=== PATIENT | male | born 1950 | race Hispanic/Latino ===

== ENCOUNTER 2018-08-31 17:05 | Outpatient (CLI) | payer OTHER ==
[2018-08-31 17:20] LABS: Hemoglobin 14.2 g/dL (14.0-18.0); Mean Corpuscular HGB CONC 34.7 g/dL (32.0-36.0); Mean Corpuscular Hemoglobin 32.5 pg (27.0-31.0); Mean Corpuscular Volume 93.7 fL (78.0-98.0); Mean Platelet Volume 7.9 fL (7.4-10.4); Platelet Count 316 thou/uL (130-400); RBC Distribution Width 11.4 % (11.5-14.5); Red Blood Cell (RBC) Count 4.35 mill/uL (4.70-6.10)
[2018-08-31 17:53] LABS: Anion Gap 16 mmol/L (10-20); BUN (Urea Nitrogen) 27 mg/dL (8.4-25.7); Calc. Creatinine Clearance 0 mL/min (70-130); Calcium 10.6 mg/dL (7.8-10.44); Carbon Dioxide 26 mmol/L (23-31); Chloride 98 mmol/L (98-107); Estimated GFR-MDRD 51; Glucose 157 mg/dL (80-115); Potassium 4.2 mmol/L (3.5-5.1); Sodium 136 mmol/L (136-145)
--- NOTE | 2018-08-31 18:20 | RAD ---
TWO VIEWS CHEST: 08/31/18 PROVIDED CLINICAL HISTORY: Preop. FINDINGS: Comparison 10/10/13. The cardiac and mediastinal silhouette is within normal limits. Lungs appear clear. No pleural fluid or pneumothorax apparent. IMPRESSION: No evidence for an acute cardiopulmonary process. POS: SANCHEZ
== END 2018-08-31 17:06 | disposition home or self-care (01) ==
LOC: LABBT 17:05
PROVIDERS: ATTEND Thoracic Surgery (Cardiothoracic Vascular Surgery)
DX: Z01.818 Encounter for other preprocedural examination (principal); I73.9 Peripheral vascular disease, unspecified
CPT/HCPCS: 71046; 80048; 85027; 93005; 93010

== ENCOUNTER 2018-09-04 05:49 | Day surgery (SDC) | payer OTHER ==
[2018-08-31 17:31] VITALS: BMI 30.5
[2018-09-04 06:50] LABS: ALT (SGPT) 19 U/L (8-55); AST (SGOT) 20 U/L (5-34); Albumin 4.6 g/dL (3.4-4.8); Alkaline Phosphatase 51 U/L (40-150); Anion Gap 15 mmol/L (10-20); BUN (Urea Nitrogen) 26 mg/dL (8.4-25.7); Bilirubin, Total 0.4 mg/dL (0.2-1.2); Calc. Creatinine Clearance 54 mL/min (70-130); Calcium 10.2 mg/dL (7.8-10.44); Carbon Dioxide 25 mmol/L (23-31); Chloride 101 mmol/L (98-107); Estimated GFR-MDRD 45; Globulin 3.5 g/dL (2.4-3.5); Glucose 354 mg/dL (80-115); Protein, Total 8.1 g/dL (5.8-8.1); Sodium 137 mmol/L (136-145)
[2018-09-04] MEDS ORDERED: hydrALAZINE 20 MG/ML VIAL ONE (07:00)
[2018-09-04] MEDS ORDERED: Midazolam HCl 2 mg/2 ml Vial ONE ×2 (07:23→08:11)
[2018-09-04] MEDS ORDERED: Fentanyl 100 MCG/2 ML VIAL ONE (07:24)
[2018-09-04] MEDS ORDERED: Heparin 10,000 UNITS/1 ML VIAL ONE (07:40)
[2018-09-04] MEDS ORDERED: Clopidogrel Bisulfate 300 MG TAB ONE (08:55)
[2018-09-04] MEDS ORDERED: Iopamidol 370 76% 50 ML VIAL FS ONE (09:46)
--- NOTE | 2018-09-04 17:15 | OP ---
DATE OF PROCEDURE: 09/04/2018 PROCEDURES PERFORMED: Right common femoral artery access with ultrasonographic guidance, aortography with left lower extremity runoff, selective left popliteal angiography, left popliteal balloon angioplasty with 4 x 40 Boston balloon followed by 5 x 40 Lutonix drug-coated balloon angioplasty, and 6 x 80 Innova stent placement in the distal superficial femoral artery and proximal popliteal artery, completion angiography, and ProGlide closure. PREOPERATIVE DIAGNOSIS: Peripheral vascular disease with ischemic tissue loss, left lower extremity. POSTOPERATIVE DIAGNOSIS: Peripheral vascular disease with ischemic tissue loss, left lower extremity. ANESTHESIA: 1% lidocaine local anesthesia with intravenous sedation consisting of incrementally administered Versed and fentanyl totalling 3 mg of Versed and 75 mcg of fentanyl. INDICATIONS: The patient is a 67-year-old diabetic man with mild renal insufficiency, who about a year and a half ago, underwent [employer] with drug-coated balloon of his right popliteal artery followed about a week later by simple amputation of a gangrenous right 4th toe. He has done well until recently when he began developing gangrenous changes affecting the left 4th toe and he was found to have lost the previously palpable dorsalis pedis pulse in that foot. He is now taken to the laborer tin can for diagnostic arteriography and possible percutaneous interventions. FINDINGS: Slightly tortuous right iliac system and small aorta, but otherwise normal aortoiliac segments. Extensive calcification in the left lower extremity [place] vasculature with focal subtotal lesion in the popliteal artery proximally and more modest, but still significant lesion a few centimeters proximal to that in the distal SFA. 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 His anterior tibial and peroneal appeared to reach the foot. He was unclear exactly which one actually crossed into the foot. Postprocedure, he had a good angiographic result locally and a palpable dorsalis pedis pulse in the foot. NARRATIVE REPORT: After informed consent was obtained, the patient was taken to the laborer tin can and positioned supine on the cath table. His groins were prepped and draped in sterile fashion and he was given his initial dose of IV sedation while ultrasonographic examination of the right groin was undertaken via common femoral and its bifurcation were identified and a point on the common femoral where there was minimal calcification on the anterior wall was selected. A micropuncture needle and wire was used to cannulate the femoral artery after infiltrating the area with lidocaine. That microwire was exchanged for a larger caliber wire. The micropuncture sheath was removed and 5-Tunisian sheath exchanged on it. A catheter was placed over that wire and advanced into the aorta and then manipulated to allow for guiding the guidewire into the left iliac system. It was advanced distally to the level of the femoral head and the catheter was then advanced over it. The wire was removed. A small injection demonstrated that the catheter was at the femoral bifurcation. It was withdrawn slightly, and then left lower extremity runoff was performed following the dye column down below the knee. The [place] vasculature had extensive calcifications in it and a high-grade lesion. The transition from superficial femoral to popliteal was readily identified, and then digital subtraction arteriography with selective popliteal angiography more clearly defined that lesion. Further runoff demonstrated trifurcation vessel disease as was anticipated by the calcifications seen in the vessels particularly at the posterior tibial, which was an occluded vessel. The anterior tibial and peroneal were relatively small vessels that appeared to at least reach the foot, one of which in all likelihood, the anterior tibial crossed into the foot. A small flexible wire was advanced through the catheter and used to gently probe the lesion. A more flexible catheter was exchanged over it and advanced to allow for manipulation of the wire to allow passage through the lesion down below the knee and to the distal popliteal artery. Arteriography was performed there to confirm intraluminal positioning as was suggested by the ability to aspirate on the catheter. A 4 x 40 Boston balloon was passed over the wire and positioned across that lesion and was inflated. Arteriography following that showed some modest improvement in that lesion, but more clearly demonstrated a more modest lesion 4 to 5 cm proximal to that in the distal SFA. A 5 x 40 Lutonix drug-coated balloon was inflated across the more high-grade lesion that had been predilated and inflation was held for 3 minutes and then deflated. After determining the distance between the 2 lesions, 6 x 80 Innova stent was selected and advanced with the distal extend a little beyond the high-grade lesion, proximal extend a little bit above the high-grade lesion. The stent was deployed and then was dilated in overlapping fashion first with 4 x 40 balloon and then with a 5 x 40 drug-coated balloon. Completion arteriography showed a good angiographic result with a little bit of luminal irregularity at the knee joint. The balloon and wire were removed and the sheath was withdrawn back to the level of the iliac system and appropriate wire was placed through that and the sheath removed and a ProGlide device was advanced over it. It was advanced through the skin puncture site until blood spontaneously pulsed from the side port of it and the closure suture was deployed. The knot pusher was used to tie and secure the lesion achieving hemostasis. Total contrast used was 36 mL of Isovue. Total fluoro time was 24 minutes. The patient had palpable left dorsalis pedis pulse at the conclusion of the procedure. The puncture site was dressed. The patient was taken to the recovery area in stable condition. Job ID: [id number]
== END 2018-09-04 14:39 | disposition home or self-care (01) ==
LOC: CCL 05:49
PROVIDERS: ATTEND Thoracic Surgery (Cardiothoracic Vascular Surgery)
PROC: 047K341 Dilation of Right Femoral Artery with Drug-eluting Intraluminal Device, using Drug-Coated Balloon, Percutaneous Approach (ICD-10-PCS; principal; 2018-09-04)
DX: E11.51 Type 2 diabetes mellitus with diabetic peripheral angiopathy without gangrene (principal); I70.245 Atherosclerosis of native arteries of left leg with ulceration of other part of foot; E11.621 Type 2 diabetes mellitus with foot ulcer; L97.529 Non-pressure chronic ulcer of other part of left foot with unspecified severity; I10 Essential (primary) hypertension; E78.2 Mixed hyperlipidemia; Z79.02 Long term (current) use of antithrombotics/antiplatelets; Z79.82 Long term (current) use of aspirin; Z79.84 Long term (current) use of oral hypoglycemic drugs; Z79.52 Long term (current) use of systemic steroids; Z79.899 Other long term (current) drug therapy; Z95.820 Peripheral vascular angioplasty status with implants and grafts
CPT/HCPCS: 36415; 37226; 76942; 80053; 85347; 99152; 99153; C1725; C1760; C1769; C1887; J0360; J1644; J2250; J3010

== ENCOUNTER 2018-10-02 14:21 | Inpatient (IN) | payer OTHER ==
--- NOTE | 2018-10-02 14:46 | RAD ---
LEFT FOOT 3 VIEWS: Date: 10/02/18 HISTORY: Gangrene. COMPARISON: None. FINDINGS: There is subcutaneous emphysema throughout the midfoot extending from the first through the fifth toe s. There is arterial medial sclerosis. No large cortical erosions or periostitis is appreciated, aside from the distal phalanx of the great toe tuft. There is some possible cortical irregularity of the medial aspect of the distal phalanx of the small toe. IMPRESSION: 1. Subcutaneous emphysema and gangrenous changes throughout the midfoot from the first-fifth proxima l phalanges. 2. Erosions of the great toe distal phalanx and medial margin of the fourth toe distal phalanx, may be the sequelae of osteomyelitis. MRI recommended if clinically warranted. POS: [facility]
[2018-10-02 15:17] LABS: #Lymphocytes 1.5 thou/uL (1.20-3.40); #Monocytes 0.6 thou/uL (0.11-0.59); #Neutrophils 10.4 thou/uL (1.40-6.50); %Basophils 0.2 % (0.0-1.0); %Eosinophils 0.1 % (0.0-10.0); %Lymphocytes 12.2 % (21.0-51.0); %Monocytes 4.6 % (0.0-10.0); Hemoglobin 11.7 g/dL (14.0-18.0); Mean Corpuscular HGB CONC 34.3 g/dL (32.0-36.0); Mean Corpuscular Hemoglobin 31.1 pg (27.0-31.0); Mean Corpuscular Volume 90.6 fL (78.0-98.0); Mean Platelet Volume 7.7 fL (7.4-10.4); Platelet Count 449 thou/uL (130-400); RBC Distribution Width 11.3 % (11.5-14.5); Red Blood Cell (RBC) Count 3.75 mill/uL (4.70-6.10); White Blood Cell (WBC) Count 12.6 thou/uL (4.8-10.8)
[2018-10-02 15:38] LABS: ALT (SGPT) 18 U/L (8-55); AST (SGOT) 15 U/L (5-34); Albumin 3.8 g/dL (3.4-4.8); Alkaline Phosphatase 66 U/L (40-150); Anion Gap 17 mmol/L (10-20); BUN (Urea Nitrogen) 26 mg/dL (8.4-25.7); Bilirubin, Total 0.4 mg/dL (0.2-1.2); Calc. Creatinine Clearance 0 mL/min (70-130); Calcium 10.3 mg/dL (7.8-10.44); Carbon Dioxide 24 mmol/L (23-31); Chloride 91 mmol/L (98-107); Estimated GFR-MDRD 44; Globulin 4.1 g/dL (2.4-3.5); Potassium 4.1 mmol/L (3.5-5.1); Protein, Total 7.9 g/dL (5.8-8.1); Sodium 128 mmol/L (136-145)
[2018-10-02 15:47] LABS: Glucose 565 mg/dL (80-115)
[2018-10-02] MEDS ORDERED: Piperacillin/Tazobactam 4.5 GM VIAL ONE (16:47)
[2018-10-02] MEDS ORDERED: Sodium Chloride 0.9% 100 ML ONE (16:47)
[2018-10-02] MEDS ORDERED: Dextrose 50% Abboject 50 ML SYRINGE IVP PRN (19:28)
[2018-10-02] MEDS ORDERED: Dextrose 5% in Water 1,000 ML IV PRN (19:28)
[2018-10-02] MEDS ORDERED: Insulin Regular 300 UNITS/3 ML VIAL SC PRN (19:28)
[2018-10-02] MEDS ORDERED: VANCOMYCIN IVPB PRN (19:28)
[2018-10-02] MEDS ORDERED: HOLD METFORMIN FS SCH (19:45)
[2018-10-02] MEDS ORDERED: HYDROcodone/Acetaminophen 5/325 mg Tablet PO PRN (20:16)
[2018-10-02] MEDS ORDERED: HYDROcodone/Acetaminophen 5/325 mg Tablet ONE (20:45)
[2018-10-02] MEDS ORDERED: Insulin Regular 300 UNITS/3 ML VIAL ONE (20:51)
[2018-10-02] MEDS: HYDROcodone/Acetaminophen 5/325 mg Tablet PO PRN (20:56)
[2018-10-02] MEDS: Atorvastatin Calcium 20 MG TAB PO SCH (20:57)
[2018-10-02] MEDS: cloNIDine 0.2 MG TAB PO SCH (20:57)
[2018-10-02] MEDS: Sodium Chloride 0.9% 1,000 ML IV SCH (20:58)
[2018-10-02 21:17] VITALS: BMI 26.7
[2018-10-02] MEDS: Piperacillin/Tazobactam 4.5 GM in Sodium Chloride 0.9% 100 ML IVPB SCH (23:23)
[2018-10-03] MEDS: HYDROcodone/Acetaminophen 5/325 mg Tablet PO PRN ×2 (04:02→08:25)
[2018-10-03] MEDS: Piperacillin/Tazobactam 4.5 GM in Sodium Chloride 0.9% 100 ML IVPB SCH ×4 (06:05→23:59)
[2018-10-03 07:02] LABS: #Lymphocytes 1.4 thou/uL (1.20-3.40); #Monocytes 0.6 thou/uL (0.11-0.59); #Neutrophils 8.1 thou/uL (1.40-6.50); %Basophils 0.2 % (0.0-1.0); %Eosinophils 0.4 % (0.0-10.0); %Lymphocytes 13.6 % (21.0-51.0); %Monocytes 5.9 % (0.0-10.0); Hemoglobin 9.4 g/dL (14.0-18.0); Hemoglobin A1c 10.9 % (4.0-6.0); Mean Corpuscular HGB CONC 34.5 g/dL (32.0-36.0); Mean Corpuscular Hemoglobin 31.6 pg (27.0-31.0); Mean Corpuscular Volume 91.7 fL (78.0-98.0); Mean Platelet Volume 7.2 fL (7.4-10.4); Platelet Count 368 thou/uL (130-400); RBC Distribution Width 11.4 % (11.5-14.5); Red Blood Cell (RBC) Count 2.99 mill/uL (4.70-6.10); White Blood Cell (WBC) Count 10.1 thou/uL (4.8-10.8)
[2018-10-03 07:24] LABS: Anion Gap 12 mmol/L (10-20); BUN (Urea Nitrogen) 24 mg/dL (8.4-25.7); Calc. Creatinine Clearance 71 mL/min (70-130); Calcium 8.7 mg/dL (7.8-10.44); Carbon Dioxide 27 mmol/L (23-31); Chloride 104 mmol/L (98-107); Estimated GFR-MDRD 63; Glucose 76 mg/dL (80-115); Potassium 3.6 mmol/L (3.5-5.1); Sodium 139 mmol/L (136-145)
[2018-10-03] MEDS: Glimepiride 4 MG TAB PO SCH (08:24)
[2018-10-03] MEDS: Sodium Chloride 0.9% 1,000 ML IV SCH ×4 (08:26→16:21)
[2018-10-03] MEDS ORDERED: Vancomycin HCl 1.25 GM in Sodium Chloride 0.9% 250 ML 250 ML IVPB SCH (09:00)
[2018-10-03] MEDS: cloNIDine 0.2 MG TAB PO SCH ×2 (10:09→21:10)
[2018-10-03 11:25] LABS: INR-International Normal Ratio 1.1; PTT 34.6 SEC (22.9-36.1); Prothrombin Time 14.1 SEC (12.0-14.7)
[2018-10-03] MEDS ORDERED: Bupivacaine PF 0.5% 30 ML VIAL ONE (12:28)
[2018-10-03] MEDS ORDERED: Bupivacaine HCl 0.5%/Epinephrine 1:200,000/PF 30 ml Vial ONE (12:28)
[2018-10-03] MEDS ORDERED: Fentanyl 100 MCG/2 ML VIAL ONE ×4 (12:35→17:26)
[2018-10-03] MEDS ORDERED: Ondansetron HCl/PF 4 MG/2 ML Vial IVP PRN (14:41)
[2018-10-03] MEDS ORDERED: Promethazine HCl 25 MG/ML VIAL IM/IV PRN (14:41)
--- NOTE | 2018-10-03 14:45 | HP ---
REASON FOR ADMISSION: Gangrene of the toe. HISTORY OF PRESENT ILLNESS: Mr. Milton is a 67-year-old male with past medical history of severe PVD, uncontrolled diabetes, developed wound on the left 4th toe about two months ago. The patient was seen initially in the office and then he was referred to Cardiovascular Surgery for the peripheral vascular disease for possible developing gangrene. He was seen by Cardiovascular Surgery and had an evaluation, and he was supposed to follow up again. He was diagnosed with severe PVD. The patient states that he has another followup appointment, but meanwhile , his toe is getting worse. It is more gangrenous, became dry, swollen, so he came to the emergency room, where he was evaluated, found to have gangrene of the 4th toe. The x-ray of the foot showed the gangrene is spreading to the mid foot, and the x- ray also showed evidence of osteomyelitis. The patient was given vancomycin and Zosyn in the ER and fluids and admitted for further evaluation and management. PAST MEDICAL HISTORY: 1. Hypertension. 2. Diabetes mellitus. 3. Hyperlipidemia. PAST SURGICAL HISTORY: Status post amputation of right 4th toe due to PVD and gangrene. CURRENT MEDICATIONS: The patient is on, 1. Metformin 1000 mg b.i.d. 2. Clonidine 0.2 b.i.d. 3. Lisinopril with hydrochlorothiazide 20/25 daily. 4. Pravastatin 80 mg daily. 5. Plavix 75 mg daily. 6. Glimepiride 4 mg two tablets daily. ALLERGIES: NKDA. FAMILY HISTORY: Nothing contributory. CARDIOVASCULAR: No chest pain. No shortness of breath. GASTROINTESTINAL: No nausea, vomiting, or abdominal pain. PHYSICAL EXAMINATION: GENERAL: The patient is alert, awake, and oriented x3. VITAL SIGNS: Temperature 98.pulse 80, BP 130/80. EXTREMITIES: Right foot; there is complete amputation of right 4th toe. Left foot; left 4th toe is completely gangrenous. The swelling and erythema extend to the midfoot. X-ray of the left foot showed subcutaneous emphysema and gangrenous changes throughout the midfoot from 1st to 5th rproximal phalanges. There is erosion of great toe distal phalanx and medial margin of 4th toe distal phalanx, possibly due to osteomyelitis. LABORATORY DATA: CBC shows WBC 12.6, hemoglobin 11, hematocrit 34, platelets 440. Metabolic panel; sodium 128, potassium 4, chloride 24 ASSESSMENT: 1. Severe peripheral vascular disease with gangrene of the left 4th toe. 2. Osteomyelitis, left foot. 3. Diabetes mellitus, uncontrolled. 4. Noncompliant. 5. Hypertension. 6. Hyperlipidemia. PLAN: 1. Vital signs q.4 hours. 2. Activity as tolerated. 3. Allergies, NKDA. 4. Diet, ADA 5. Vancomycin 1 g IV piggyback q 12 hrs 6. Cardiovascular Surgery consult. 7. Accu-Chek a.c., and at bedtime. Sliding scale aggresive regular insulin. 8. Continue his home medications. 9. Hold metformin. Job ID: [id number] MTDD
[2018-10-03] MEDS ORDERED: Metoprolol Tartrate 5 MG/5 ML VIAL ONE (15:19)
[2018-10-03] MEDS ORDERED: PROPOFOL 200 MG/20 ML VIAL ONE (15:19)
[2018-10-03] MEDS ORDERED: Lidocaine 1% PF 5 ML VIAL ONE (15:19)
[2018-10-03] MEDS ORDERED: Ondansetron PF 4 MG/2 ML Vial ONE (17:26)
[2018-10-03 20:16] LABS: Vancomycin, Random 16.8 ug/mL (See Comment)
--- NOTE | 2018-10-03 20:24 | OP ---
DATE OF PROCEDURE: 10/03/2018 PROCEDURES PERFORMED: Ray amputation of left toes 2, 3, and 4. PREOPERATIVE DIAGNOSES: Wet gangrene of left toes 3 and 4. POSTOPERATIVE DIAGNOSES: Wet gangrene of left toes 3 and 4 with gangrene of left second toe. INDICATIONS: The patient is a 67-year-old diabetic man with peripheral vascular disease, who fairly recently underwent percutaneous revascularization of his left lower extremity for limb salvage after presenting with development of a gangrenous tip to the fourth toe. He was resistant to the idea of amputation, but gangrenous changes have dramatically progressed and are quite painful and he presented with ischemic changes now involving adjacent toes and he was markedly hyperglycemic. FINDINGS: Necrotic tissue involving the fourth and third toes as well as the lateral aspect of the base of the second toe. The soft tissue at the plantar aspect of the base of the first and fifth toes were marginal. There was gross pus encountered upon entering the forefoot. NARRATIVE REPORT: After informed consent was obtained, the patient was taken to the operating room, placed in supine position on the operating table. After the induction of general LMA anesthesia, the patient's left lower extremity was prepped and draped in sterile fashion. A wedge type incision was made with the proximal apex extending proximal to the metatarsophalangeal joints of the third and fourth toes that was extended at the angle between the fourth and fifth toes and second and third toes and then around to the very distal plantar aspect of the foot. The electrocautery was used to carry those incisions through the soft tissues. The bones of the metatarsals and proximal phalanges of those two toes were exposed and then the metatarsals were transected with bone cutters and the dissection continued. Scissors were used for much of the debridement and dissection. It can be appreciated that the tissue at the base of the second toe was necrotic and ischemic appearing skin on the lateral aspect of the second toe to be appreciated. The wedge was extended to include the second toe in the amputation. The metatarsals were debrided with rongeurs and the wound was irrigated with Pulsavac device and 3 L of sterile irrigation. The wound was packed open and dressed with a bulky gauze dressing followed by loose application of an Seun wrap and he was taken to the recovery area in stable condition. Job ID: [id number]
--- NOTE | 2018-10-03 20:58 | CON ---
DATE OF CONSULTATION: 10/03/2018 REQUESTING PROVIDER: BEULAH Souza CHIEF COMPLAINT: Left foot pain. HISTORY OF PRESENT ILLNESS: The patient is a 67-year-old diabetic man with known peripheral vascular disease about a year and a half ago. He underwent percutaneous angioplasty of his right popliteal artery followed by amputation of a gangrenous fourth toe. He recently underwent a mirror image presentation and procedure with angioplasty and stenting of his distal left superficial femoral artery and popliteal artery when he had developed a gangrenous tip to the fourth toe on the left foot, followup most of the toe appeared reasonably pink. There was a fairly large eschar involving the tip of the toe, but it appeared to be limited to the soft-tissue pad in the patient even though it hurt a little bit, was adamant that he did not want to undergo amputation of the toe. He had requested pain medications while they were provided the message was relayed to them that if his toe was starting to hurt that much, in all likelihood it needed to proceed with amputation, but he did not present until last night when he came to the emergency room with persistent severe pain affecting that toe. By the time, he had some wet gangrenous changes evolving, although not evident on physical exam. There was some x-ray evidence to suggest subcutaneous air in the foot. He was also markedly hyperglycemic. He was admitted to the hospital, started on antibiotics, and when I logged onto the computer this morning, I found his name on my list, at the first available opportunity went to go see him. PAST MEDICAL HISTORY: Significant for diabetes, hypertension, and peripheral vascular disease. MEDICATIONS: His home medications are: 1. Clonidine. 2. Lisinopril/hydrochlorothiazide. 3. Baby aspirin. 4. Plavix. 5. Pravastatin. 6. Metformin. 7. Glimepiride. ALLERGIES: HE REPORTS AN ALLERGY TO [facility]. SOCIAL HISTORY: He does not smoke. FAMILY HISTORY: His father at age 60 of causes, which he is unaware. His mother is still alive at age 85. REVIEW OF SYSTEMS: Positive for some chills, but negative for fever. PHYSICAL EXAMINATION: GENERAL: He is not particularly ill looking at all. VITAL SIGNS: His temperature on presentation in the emergency room was 98.4, which is the maximum temperature in the hospital, heart rate is in the 80s, blood pressure 135/70, and room air O2 saturations are 94% to 100%. NECK: He has no JVD. No carotid bruits. CHEST: Clear to auscultation. HEART: He has regular rate and rhythm. EXTREMITIES: He has an easily palpable left dorsalis pedis pulse. There are some dusky changes to much of the forefoot. The left fourth toe is entirely black with the exception of the very base of it. There is pale erosion on the lateral aspect of the third toe adjacent to it with duskiness of the entire toe. The other toes appear pink and viable. There is some wrinkling of the skin to suggest resolution of some edema. There is no lymphangitic streaking. There are no obvious cellulitic changes. There is no particular tenderness to the foot or calf. There is no palpable crepitus. LABORATORY DATA: His white count was 12.6, hemoglobin 11.7, hematocrit 34.0, and platelets 449,000. PT was 14.1 and INR 1.1. Chemistries initially showed a sodium of 128, glucose of 565 with an anion gap of 17. Followup chemistries this morning showed a sodium of 139, potassium 3.6, chloride 104, CO2 of 27, glucose 76, BUN 24, and creatinine 1.17. DIAGNOSTIC DATA: His foot x-rays were reported as having evidence of osteomyelitis and subcutaneous emphysema, I am not particularly struck by any obvious osteo on the lateral film. There is a lucency that is fairly evenly distributed, mostly along the ankle that I suppose could represent subcutaneous air, I am not impressed with that much of anything that I would call air in the foot per se. There are rather dramatic vascular calcifications in the distal ankle and in the foot. IMPRESSION AND RECOMMENDATIONS: While the patient certainly is not as sick appearing as I would have expected him to be when I did my chart review before going to see him, certainly he has declared himself as needing amputation of that fourth toe and gangrenous changes are now involving the adjacent third toe. I would recommend since he is n.p.o. to proceed with amputation now, and I will plan on leaving the wound open. Job ID: [id number]
[2018-10-03] MEDS: Atorvastatin Calcium 20 MG TAB PO SCH (21:10)
[2018-10-03] MEDS: Insulin Regular 300 UNITS/3 ML VIAL SC PRN (21:13)
[2018-10-04] MEDS: Piperacillin/Tazobactam 4.5 GM in Sodium Chloride 0.9% 100 ML IVPB SCH ×4 (06:00→23:31)
[2018-10-04] MEDS: Insulin Regular 300 UNITS/3 ML VIAL SC PRN ×3 (06:07→16:15)
[2018-10-04] MEDS: Vancomycin HCl 1 GM in Premix Bag 1 BAG IVPB SCH ×2 (06:35→16:28)
[2018-10-04] MEDS: Sodium Chloride 0.9% 1,000 ML IV SCH ×2 (07:59→12:37)
[2018-10-04] MEDS: cloNIDine 0.2 MG TAB PO SCH ×2 (09:02→20:45)
[2018-10-04] MEDS: Glimepiride 4 MG TAB PO SCH (09:02)
[2018-10-04] MEDS ORDERED: Lisinopril/Hydrochlorothiazide 20/25 mg Tablet PO SCH (10:45)
[2018-10-04] MEDS ORDERED: chlorproMAZINE HCl 25 MG TAB PO PRN (18:07)
[2018-10-04] MEDS: Atorvastatin Calcium 20 MG TAB PO SCH (20:22)
[2018-10-04] MEDS: Lisinopril/Hydrochlorothiazide 20 mg/12.5 mg Tablet PO SCH (20:45)
--- NOTE | 2018-10-04 21:29 | CON ---
DATE OF CONSULTATION: HISTORY OF PRESENT ILLNESS: Mr. So is a 67-year-old male admitted with history of peripheral vascular disease and recent angioplasty of lower extremity arteries with stenting, who developed gangrene in the distal right foot second, third, and fourth toes. The patient underwent ray amputation under Dr. Loza's care yesterday. He is currently in bed. He denies any headaches, visual symptoms, sore throat, odynophagia, or dysphagia. No back pain. No dyspnea or chest pain. No abdominal pain or diarrhea. No genitourinary symptoms. Moderate pain at the site of the amputation. PAST MEDICAL HISTORY: Hypertension, type 2 diabetes, hyperlipidemia, and peripheral vascular disease. PAST SURGICAL HISTORY: Amputation of fourth toe, right side; and recent revascularization, angioplasty and stenting of the left side. ALLERGIES: NONE. MEDICATIONS: 1. Metformin. 2. Clonidine. 3. Lisinopril. 4. Pravastatin. 5. Plavix. 6. Glimepiride. Other medications currently include Zosyn and vancomycin. SOCIAL HISTORY: He is originally from [place]. No smoking history. FAMILY HISTORY: Noncontributory. PHYSICAL EXAMINATION: VITAL SIGNS: Temperature maximum 99.8, blood pressure 160/72, pulse 79, and respirations 16. HEENT: Ocular movements conjugate. Oral cavity normal. NECK: Supple. LUNGS: Symmetric clear breath sounds. HEART: S1, S2. Regular rate. ABDOMEN: Soft, not distended or tender. EXTREMITIES: Right foot with dressing in place. Microbiology with no growth thus far. LABORATORY DATA: White cell count is down from 12.6 to 10, hemoglobin 9.4, and platelets 368. The operative note was reviewed. ASSESSMENT AND ASSESSMENT: Peripheral vascular disease with recent revascularization and then developed gangrene on second, third, and fourth toes, right side, which required amputation. At this point, we will continue antimicrobial therapy and monitor blood cultures. If the result negative, then we will see what the margin of amputation is to see if we can switch him to oral antimicrobial therapy for discharge planning for few weeks. He has a resistant pathogen retrieved and we may need to switch him to continue IV therapy and PICC line placement depending on the margin of clearance following amputation. Job ID: [id number]
[2018-10-05] MEDS: Sodium Chloride 0.9% 1,000 ML IV SCH (03:45)
[2018-10-05] MEDS: Piperacillin/Tazobactam 4.5 GM in Sodium Chloride 0.9% 100 ML IVPB SCH ×4 (05:05→23:20)
[2018-10-05] MEDS: Vancomycin HCl 1 GM in Premix Bag 1 BAG IVPB SCH ×2 (06:15→17:07)
[2018-10-05] MEDS ORDERED: Fentanyl 100 MCG/2 ML VIAL ONE ×3 (06:39→09:16)
[2018-10-05 06:40] LABS: #Basophils 0.1 thou/uL (0.0-0.2); #Eosinphils 0.2 thou/uL (0.0-0.7); #Lymphocytes 2.8 thou/uL (1.20-3.40); #Monocytes 0.5 thou/uL (0.11-0.59); #Neutrophils 8.1 thou/uL (1.40-6.50); %Basophils 0.6 % (0.0-1.0); %Eosinophils 1.6 % (0.0-10.0); %Lymphocytes 24.2 % (21.0-51.0); %Monocytes 4.7 % (0.0-10.0); Hemoglobin 10.5 g/dL (14.0-18.0); Mean Corpuscular HGB CONC 33.9 g/dL (32.0-36.0); Mean Corpuscular Hemoglobin 31.2 pg (27.0-31.0); Mean Corpuscular Volume 92.2 fL (78.0-98.0); Mean Platelet Volume 7.3 fL (7.4-10.4); Platelet Count 436 thou/uL (130-400); RBC Distribution Width 11.5 % (11.5-14.5); Red Blood Cell (RBC) Count 3.38 mill/uL (4.70-6.10); White Blood Cell (WBC) Count 11.7 thou/uL (4.8-10.8)
[2018-10-05 07:02] LABS: Anion Gap 20 mmol/L (10-20); BUN (Urea Nitrogen) 15 mg/dL (8.4-25.7); Calc. Creatinine Clearance 65 mL/min (70-130); Calcium 9.2 mg/dL (7.8-10.44); Carbon Dioxide 20 mmol/L (23-31); Chloride 102 mmol/L (98-107); Estimated GFR-MDRD 57; Glucose 259 mg/dL (80-115); Iron 31 ug/dL (65-175); Iron Binding Capacity, Total 179 mcg/dL (261-462); Potassium 3.2 mmol/L (3.5-5.1); Sodium 139 mmol/L (136-145)
[2018-10-05 07:36] LABS: Folate (Folic Acid) 13.1 ng/mL (7.0-31.4)
[2018-10-05] MEDS ORDERED: Promethazine HCl 25 MG/ML VIAL SLOW IVP PRN (08:49)
[2018-10-05] MEDS ORDERED: Ondansetron HCl/PF 4 MG/2 ML Vial IVP PRN (08:49)
[2018-10-05] MEDS ORDERED: Promethazine HCl 25 MG/ML VIAL IM PRN (08:49)
[2018-10-05] MEDS ORDERED: Lisinopril/Hydrochlorothiazide 20/25 mg Tablet PO SCH (09:00)
[2018-10-05] MEDS ORDERED: Docusate 100 MG CAP PO SCH ×2 (10:22→10:45)
[2018-10-05] MEDS: Lisinopril/Hydrochlorothiazide 20 mg/12.5 mg Tablet PO SCH ×2 (10:38→20:36)
[2018-10-05] MEDS: Glimepiride 4 MG TAB PO SCH (10:39)
[2018-10-05] MEDS: cloNIDine 0.2 MG TAB PO SCH ×2 (10:39→20:38)
[2018-10-05] MEDS: Insulin Regular 300 UNITS/3 ML VIAL SC PRN ×3 (10:43→21:37)
[2018-10-05] MEDS ORDERED: Ondansetron PF 4 MG/2 ML Vial ONE (11:05)
[2018-10-05] MEDS ORDERED: PHENYLEPHRINE-NS 100 MCG/ML 10 ML SYRINGE ONE (11:05)
[2018-10-05] MEDS ORDERED: PROPOFOL 200 MG/20 ML VIAL ONE (11:05)
[2018-10-05] MEDS ORDERED: Lidocaine 1% PF 5 ML VIAL ONE (11:05)
[2018-10-05] MEDS: Potassium Chloride 20 MEQ TAB PO SCH ×3 (11:33→20:35)
[2018-10-05] MEDS: HYDROcodone/Acetaminophen 5/325 mg Tablet PO PRN (13:04)
--- NOTE | 2018-10-05 13:19 | OP ---
DATE OF PROCEDURE: 10/05/2018 PROCEDURE PERFORMED: Exam under anesthesia and irrigation and debridement of open left foot wound. PREOPERATIVE DIAGNOSIS: Status post ray amputations of left toes 2, 3, and 4. POSTOPERATIVE DIAGNOSIS: Status post ray amputations of left toes 2, 3, and 4. ANESTHESIA: General LMA. INDICATIONS: The patient is a 67-year-old diabetic man with peripheral vascular disease, who had conversion of dry gangrene of a toe to wet gangrene and underwent urgent amputation of the involved toes. He has now returned to the operating room for examination under anesthesia and any further debridement that is necessary. FINDINGS: Trivial amount of tissue along the medial and lateral distal aspects of the wound that was of questionable viability. NARRATIVE REPORT: After informed consent was obtained, the patient was taken to the operating room and placed in supine position on the operating table. After the induction of general LMA anesthesia, the dressing was removed from the patient's foot and the wound was prepped and draped. Most of the tissue was clearly viable at the base of the remaining two toes at the distal extent of the wound. The tissue was a little bit benavides, very superficial debridement with a scalpel, cut into tissue that bled. Ronguers were used to trim the metatarsals of the 3rd and 4th toes a little bit shorter. The wound was then bluntly debrided by scraping it first with the edge of the knife blade and then with gauze. It was irrigated and a wound VAC was applied. Job ID: [id number]
[2018-10-05 18:07] LABS: Vancomycin, Trough 17.5 ug/mL
[2018-10-05] MEDS: Docusate 100 MG CAP PO SCH (20:35)
[2018-10-05] MEDS: Atorvastatin Calcium 20 MG TAB PO SCH (20:38)
[2018-10-06] MEDS: Piperacillin/Tazobactam 4.5 GM in Sodium Chloride 0.9% 100 ML IVPB SCH ×4 (05:36→23:18)
[2018-10-06 06:35] LABS: Anion Gap 11 mmol/L (10-20); BUN (Urea Nitrogen) 13 mg/dL (8.4-25.7); Calc. Creatinine Clearance 75 mL/min (70-130); Calcium 8.7 mg/dL (7.8-10.44); Carbon Dioxide 27 mmol/L (23-31); Chloride 104 mmol/L (98-107); Estimated GFR-MDRD 66; Glucose 249 mg/dL (80-115); Potassium 4.6 mmol/L (3.5-5.1); Sodium 137 mmol/L (136-145)
[2018-10-06] MEDS: Insulin Regular 300 UNITS/3 ML VIAL SC PRN ×4 (06:42→23:17)
[2018-10-06] MEDS: Vancomycin HCl 1 GM in Premix Bag 1 BAG IVPB SCH ×2 (06:42→18:15)
[2018-10-06] MEDS: Glimepiride 4 MG TAB PO SCH (06:42)
[2018-10-06] MEDS ORDERED: diphenhydrAMINE 25 MG CAP PO PRN (09:04)
[2018-10-06] MEDS: Lisinopril/Hydrochlorothiazide 20 mg/12.5 mg Tablet PO SCH ×2 (09:12→20:06)
[2018-10-06] MEDS: cloNIDine 0.2 MG TAB PO SCH ×2 (09:12→20:09)
[2018-10-06] MEDS: Docusate 100 MG CAP PO SCH ×2 (09:13→20:10)
[2018-10-06] MEDS: metFORMIN 500 MG TAB PO SCH (18:15)
[2018-10-06] MEDS: Atorvastatin Calcium 20 MG TAB PO SCH (20:09)
--- NOTE | 2018-10-06 20:41 | PRG ---
DATE OF SERVICE: 10/06/2018 SUBJECTIVE: The patient was seen and examined at bedside. No nausea or vomiting. No chest pain. No acute distress. was also at the bedside. OBJECTIVE: GENERAL: This is a well-built male, in no apparent distress. VITAL SIGNS: Temperature 98.4, pulse 81, respiratory rate 16, blood pressure 134/76. HEENT: Atraumatic and normocephalic. NECK: Supple. CARDIOVASCULAR: S1 and S2 heard. RESPIRATORY: Clear. GASTROINTESTINAL: Abdomen is soft. MUSCULOSKELETAL: No edema. DERMATOLOGIC: No skin rash. NEUROLOGIC: Alert and awake. Moving all the extremities. LABORATORY DATA: Hemoglobin is 10.5. Potassium , BUN is 13. Creatinine is 1.1. ASSESSMENT AND PLAN: 1. Severe peripheral vascular disease with gangrene, status post ray amputation of left toes, 2, 3, and 4. 2. Osteomyelitis, currently on antibiotics. 3. Type 2 diabetes. We will add low dose of metformin. We will continue to monitor. Ensure adequate hydration. 4. Noncompliance. 5. Hypertension, stable. 6. Hyperlipidemia. Continue home medications. We will add low dose of metformin. Continue vancomycin and monitor the level. If level is adequate monitor renal function. We will follow. Job ID: [id number]
[2018-10-07] MEDS: Vancomycin HCl 1 GM in Premix Bag 1 BAG IVPB SCH ×3 (05:53→17:36)
[2018-10-07] MEDS: Piperacillin/Tazobactam 4.5 GM in Sodium Chloride 0.9% 100 ML IVPB SCH ×4 (05:53→23:52)
[2018-10-07 06:52] LABS: Vancomycin, Trough 19.4 ug/mL
[2018-10-07] MEDS: Insulin Regular 300 UNITS/3 ML VIAL SC PRN ×4 (07:10→22:23)
[2018-10-07] MEDS: Glimepiride 4 MG TAB PO SCH (07:13)
[2018-10-07] MEDS: metFORMIN 500 MG TAB PO SCH ×2 (08:48→17:34)
[2018-10-07] MEDS: cloNIDine 0.2 MG TAB PO SCH ×2 (08:48→20:54)
[2018-10-07] MEDS: Lisinopril/Hydrochlorothiazide 20 mg/12.5 mg Tablet PO SCH ×2 (08:49→20:53)
[2018-10-07] MEDS: Docusate 100 MG CAP PO SCH ×2 (08:53→20:53)
--- NOTE | 2018-10-07 15:00 | PRG ---
DATE OF SERVICE: 10/07/2018 SUBJECTIVE: The patient had amputation of the toes by Dr. Loza. This was ray amputations of toes 2, 3, and 4. He denies any headaches. No visual symptoms, sore throat, odynophagia, or dysphagia. No cough, sputum production, or chest pain. OBJECTIVE: VITAL SIGNS: His vital signs have been normal. LUNGS: Clear. HEART: S1 and S2, regular rate. EXTREMITIES: The foot with dressing, which was not removed. LABORATORY DATA: White cell count 11.7, hemoglobin 10.5, and chemistry was not remarkable. Microbiology with gram-positive cocci in pairs, yet to be fully identified, susceptibility tested, currently receiving vancomycin and Zosyn. ASSESSMENT AND DISCUSSION: Peripheral vascular disease, recent revascularization, with gangrene of 2nd, 3rd, and 4th toes, status post amputation at the ray level. Continue broad spectrum coverage, final results, cultures, then transition to definitive therapy, hopefully oral regimen depending on results of the margin of amputation, also depending on the results of the final cultures. Job ID: [id number]
[2018-10-07] MEDS: Atorvastatin Calcium 20 MG TAB PO SCH (20:54)
[2018-10-08] MEDS: Piperacillin/Tazobactam 4.5 GM in Sodium Chloride 0.9% 100 ML IVPB SCH ×4 (05:32→23:32)
[2018-10-08] MEDS: Vancomycin HCl 1 GM in Premix Bag 1 BAG IVPB SCH ×2 (05:32→18:05)
[2018-10-08] MEDS: Insulin Regular 300 UNITS/3 ML VIAL SC PRN ×3 (05:43→18:10)
[2018-10-08] MEDS: Glimepiride 4 MG TAB PO SCH (06:56)
[2018-10-08] MEDS: metFORMIN 500 MG TAB PO SCH ×2 (07:49→17:05)
[2018-10-08] MEDS: cloNIDine 0.2 MG TAB PO SCH ×2 (07:51→19:56)
[2018-10-08] MEDS: Lisinopril/Hydrochlorothiazide 20 mg/12.5 mg Tablet PO SCH ×2 (07:52→20:01)
[2018-10-08] MEDS: Docusate 100 MG CAP PO SCH ×2 (07:54→19:58)
[2018-10-08] MEDS ORDERED: Amlodipine 5 MG TAB PO SCH (18:15)
[2018-10-08] MEDS: HYDROcodone/Acetaminophen 5/325 mg Tablet PO PRN (19:56)
[2018-10-08] MEDS: Atorvastatin Calcium 20 MG TAB PO SCH (19:57)
[2018-10-09] MEDS: Piperacillin/Tazobactam 4.5 GM in Sodium Chloride 0.9% 100 ML IVPB SCH ×2 (05:28→11:58)
[2018-10-09 06:49] LABS: #Eosinphils 0.3 thou/uL (0.0-0.7); #Lymphocytes 1.5 thou/uL (1.20-3.40); #Monocytes 0.5 thou/uL (0.11-0.59); #Neutrophils 5.9 thou/uL (1.40-6.50); %Basophils 0.1 % (0.0-1.0); %Eosinophils 3.8 % (0.0-10.0); %Lymphocytes 18.1 % (21.0-51.0); %Monocytes 5.8 % (0.0-10.0); %Neutrophils 72.2 % (42.0-75.0); Mean Corpuscular HGB CONC 34.1 g/dL (32.0-36.0); Mean Corpuscular Hemoglobin 31.2 pg (27.0-31.0); Mean Corpuscular Volume 91.5 fL (78.0-98.0); Platelet Count 536 thou/uL (130-400); RBC Distribution Width 11.7 % (11.5-14.5); Red Blood Cell (RBC) Count 3.19 mill/uL (4.70-6.10); White Blood Cell (WBC) Count 8.1 thou/uL (4.8-10.8)
[2018-10-09 07:03] LABS: Vancomycin, Trough 21.1 ug/mL
[2018-10-09 07:06] LABS: Anion Gap 14 mmol/L (10-20); BUN (Urea Nitrogen) 15 mg/dL (8.4-25.7); Calc. Creatinine Clearance 80 mL/min (70-130); Calcium 9.1 mg/dL (7.8-10.44); Carbon Dioxide 24 mmol/L (23-31); Chloride 103 mmol/L (98-107); Estimated GFR-MDRD 72; Glucose 173 mg/dL (80-115); Potassium 3.9 mmol/L (3.5-5.1); Sodium 137 mmol/L (136-145)
[2018-10-09] MEDS: Insulin Regular 300 UNITS/3 ML VIAL SC PRN ×3 (07:17→17:54)
[2018-10-09] MEDS: Vancomycin HCl 1 GM in Premix Bag 1 BAG IVPB SCH (07:18)
[2018-10-09] MEDS: Glimepiride 4 MG TAB PO SCH (07:18)
[2018-10-09] MEDS: Lisinopril/Hydrochlorothiazide 20 mg/12.5 mg Tablet PO SCH ×2 (08:47→20:23)
[2018-10-09] MEDS: metFORMIN 500 MG TAB PO SCH ×2 (08:47→16:57)
[2018-10-09] MEDS: Amlodipine 5 MG TAB PO SCH (08:48)
[2018-10-09] MEDS: cloNIDine 0.2 MG TAB PO SCH ×2 (08:48→20:23)
[2018-10-09] MEDS: Docusate 100 MG CAP PO SCH ×2 (08:48→20:22)
[2018-10-09] MEDS ORDERED: Vancomycin HCl 750 MG in Sodium Chloride 0.9% 250 ML 250 ML IVPB SCH (18:00)
--- NOTE | 2018-10-09 18:13 | PRG ---
DATE OF SERVICE: 10/09/2018 SUBJECTIVE: No headaches, visual symptoms, sore throat, odynophagia, and dysphagia. No dyspnea or chest pain. No abdominal pain. Minimal pain in the foot. OBJECTIVE: VITAL SIGNS: Normal. LUNGS: Clear. HEART: S1 and S2. Regular rate. ABDOMEN: Soft. EXTREMITIES: The patient has negative pressure dressing, left foot. LABORATORY DATA: White cell count 8.1, hemoglobin 10, and platelets 536. Creatinine 1.04. Microbiology with Enterococcus species, Peptostreptococcus, and Prevotella. ASSESSMENT AND DISCUSSION: Peripheral vascular disease with recent revascularization, gangrene second, third, and fourth toe status post amputation at the ray level, switch him to oral Augmentin and Flagyl, preparation for discharge planning. Job ID: [id number]
[2018-10-09] MEDS: Atorvastatin Calcium 20 MG TAB PO SCH (20:23)
[2018-10-09] MEDS: Amoxicillin/Potassium Clav 875 MG TAB PO SCH (20:23)
[2018-10-09] MEDS: metroNIDAZOLE 500 MG TAB PO SCH (20:24)
[2018-10-10] MEDS: Glimepiride 4 MG TAB PO SCH (06:49)
[2018-10-10] MEDS: Insulin Regular 300 UNITS/3 ML VIAL SC PRN ×3 (06:53→20:16)
[2018-10-10] MEDS: Docusate 100 MG CAP PO SCH ×2 (08:21→20:13)
[2018-10-10] MEDS: metFORMIN 500 MG TAB PO SCH ×2 (08:21→17:16)
[2018-10-10] MEDS: cloNIDine 0.2 MG TAB PO SCH ×2 (08:21→20:12)
[2018-10-10] MEDS: metroNIDAZOLE 500 MG TAB PO SCH ×3 (08:21→20:12)
[2018-10-10] MEDS: Lisinopril/Hydrochlorothiazide 20 mg/12.5 mg Tablet PO SCH ×2 (08:22→20:13)
[2018-10-10] MEDS: Amoxicillin/Potassium Clav 875 MG TAB PO SCH ×2 (08:22→20:13)
[2018-10-10] MEDS: Amlodipine 5 MG TAB PO SCH (08:22)
[2018-10-10] MEDS: HYDROcodone/Acetaminophen 5/325 mg Tablet PO PRN ×3 (08:47→16:05)
[2018-10-10] MEDS: Atorvastatin Calcium 20 MG TAB PO SCH (20:13)
[2018-10-11] MEDS: Insulin Regular 300 UNITS/3 ML VIAL SC PRN ×3 (06:36→16:42)
[2018-10-11] MEDS: Glimepiride 4 MG TAB PO SCH (06:36)
[2018-10-11] MEDS: Amoxicillin/Potassium Clav 875 MG TAB PO SCH ×2 (08:05→20:36)
[2018-10-11] MEDS: metFORMIN 500 MG TAB PO SCH ×2 (08:05→17:56)
[2018-10-11] MEDS: metroNIDAZOLE 500 MG TAB PO SCH ×3 (08:06→20:37)
[2018-10-11] MEDS: Amlodipine 5 MG TAB PO SCH (08:07)
[2018-10-11] MEDS: Lisinopril/Hydrochlorothiazide 20 mg/12.5 mg Tablet PO SCH ×2 (08:07→20:45)
[2018-10-11] MEDS: Docusate 100 MG CAP PO SCH ×2 (08:07→20:37)
[2018-10-11] MEDS: cloNIDine 0.2 MG TAB PO SCH ×2 (08:07→20:45)
[2018-10-11] MEDS: HYDROcodone/Acetaminophen 5/325 mg Tablet PO PRN ×2 (14:48→20:39)
--- NOTE | 2018-10-11 18:04 | PRG ---
DATE OF SERVICE: 10/11/2018 SUBJECTIVE: A little bit of pain in the foot after ambulation. No respiratory symptoms or abdominal pain. No diarrhea. OBJECTIVE: VITAL SIGNS: Temperature has been normal. Blood pressure 103/64, pulse 74, respirations 16. GENERAL: Awake, alert, and oriented. LUNGS: Clear. HEART: S1 and S2. Regular rate. ABDOMEN: Soft, not distended. EXTREMITIES: Foot with a negative pressure dressing in place. Microbiology with Enterococcus, Peptostreptococcus, and Prevotella. ASSESSMENT AND DISCUSSION: 1. Peripheral vascular disease, recent vascularization. 2. Gangrene, second, third, and fourth toe amputation at the ray level, on Augmentin and Flagyl. Preparation for discharge planning. Treat for 2 to 3 weeks according to progress of wound. Job ID: [id number]
[2018-10-11] MEDS: Atorvastatin Calcium 20 MG TAB PO SCH (20:37)
[2018-10-12] MEDS: HYDROcodone/Acetaminophen 5/325 mg Tablet PO PRN ×3 (04:12→12:10)
[2018-10-12] MEDS: Glimepiride 4 MG TAB PO SCH (06:26)
[2018-10-12] MEDS: metFORMIN 500 MG TAB PO SCH (08:41)
[2018-10-12] MEDS: Lisinopril/Hydrochlorothiazide 20 mg/12.5 mg Tablet PO SCH (08:41)
[2018-10-12] MEDS: cloNIDine 0.2 MG TAB PO SCH (08:42)
[2018-10-12] MEDS: metroNIDAZOLE 500 MG TAB PO SCH (08:42)
[2018-10-12] MEDS: Amoxicillin/Potassium Clav 875 MG TAB PO SCH (08:42)
[2018-10-12] MEDS: Amlodipine 5 MG TAB PO SCH (08:42)
[2018-10-12] MEDS: Docusate 100 MG CAP PO SCH (10:19)
[2018-10-12 11:20] VITALS: BP 144/81; TEMP 98.6
[2018-10-12] MEDS: Insulin Regular 300 UNITS/3 ML VIAL SC PRN (11:31)
--- NOTE | 2018-10-16 09:16 | DIS ---
DATE OF ADMISSION: 10/02/2018 DATE OF DISCHARGE: 10/12/2018 ADMITTING DIAGNOSES: 1. Severe peripheral vascular disease. 2. Gangrene of the left fourth toe. 3. Osteomyelitis, left foot. 4. Diabetes mellitus, uncontrolled. 5. Noncompliant with diet. 6. Hypertension. 7. Hyperlipidemia. FINAL DIAGNOSES: 1. Severe peripheral vascular disease. 2. Gangrene of left third and fourth toes. 3. Status post ray amputation of the left second, third, and fourth toes. 4. Hypertension. 5. Diabetes mellitus, uncontrolled. 6. Hyperlipidemia. BRIEF SUMMARY OF HOSPITAL COURSE: Mr. Milton is a 67-year-old male, admitted because of gangrene in the toes. The patient has a history of severe peripheral vascular disease. Cardiovascular Surgery consulted and the patient was seen by Dr. Loza who suggested amputation of the toes. The patient underwent surgery on the October 05 and re-amputation of second, third, and fourth toes because of gangrene. After surgery, the patient continued on wound care and also had a wound VAC placed. The patient was closely monitored in view of osteomyelitis, the patient was getting IV antibiotics with vancomycin, Zosyn. The patient was seen by Dr. Villalta for Infectious Disease, also says to continue antibiotics and wound care. Wound cultures were negative. Pt was started on PO antibiotics Augmentin 875 b.i.d. as well as Flagyl 500 t.i.d. The patient has been arranged for home wound VAC and is being discharged at this time. Vital signs are stable. Bowel sounds present. DISCHARGE MEDICATIONS: Include, clonidine 0.2 b.i.d., vitamin D 1000 units daily, Plavix 75 mg daily, glimepiride 4 mg daily, aspirin 81 mg daily, metformin 1000 b.i.d., pravastatin 80 mg daily, [place] p.r.n. The patient will be on Augmentin 875 b.i.d. for four weeks, Flagyl 500 mg t.i.d. for four weeks. He will continue with home wound VAC as well as antibiotics, Augmentin and Flagyl. FOLLOWUP: He will come for followup in two weeks. Job ID: [id number] [facility]
== END 2018-10-12 12:34 | disposition home or self-care (01) | DRG 240 ==
LOC: ERS 14:21 → ERHOLD 17:35 → 3SE 10-03 00:46 → SURG B 10-04 15:41
PROVIDERS: ADMIT Internal Medicine; ATTEND Internal Medicine
PROC: 0Y6N0ZB Detachment at Left Foot, Partial 2nd Ray, Open Approach (ICD-10-PCS; principal; 2018-10-03)
PROC: 0Y6N0ZC Detachment at Left Foot, Partial 3rd Ray, Open Approach (ICD-10-PCS; 2018-10-03)
PROC: 0Y6N0ZD Detachment at Left Foot, Partial 4th Ray, Open Approach (ICD-10-PCS; 2018-10-03)
PROC: 0SBN0ZZ Excision of Left Metatarsal-Phalangeal Joint, Open Approach (ICD-10-PCS; 2018-10-05)
PROC: 0SBN0ZZ Excision of Left Metatarsal-Phalangeal Joint, Open Approach (ICD-10-PCS; 2018-10-05)
DX: E11.52 Type 2 diabetes mellitus with diabetic peripheral angiopathy with gangrene (principal); I96 Gangrene, not elsewhere classified; M86.9 Osteomyelitis, unspecified; E11.69 Type 2 diabetes mellitus with other specified complication; E11.65 Type 2 diabetes mellitus with hyperglycemia; I10 Essential (primary) hypertension; E78.5 Hyperlipidemia, unspecified; Z91.11 Patient's noncompliance with dietary regimen; Z79.84 Long term (current) use of oral hypoglycemic drugs; Z79.02 Long term (current) use of antithrombotics/antiplatelets; Z79.899 Other long term (current) drug therapy; Z89.421 Acquired absence of other right toe(s)
CPT/HCPCS: 36415; 36416; 80048; 80053; 80202; 82607; 82728; 82746; 83036; 83540; 83550; 83605; 85025; 85610; 85730; 86850; 86900; 86901; 87040; 87070; 87076; 87205; 96365; 96367; J0131; J0670; J1815; J2001; J2405; J2543; J2704; J3010; J3370; J7050; Q0161; S0020

== ENCOUNTER 2018-10-16 09:45 | Outpatient (CLI) | payer OTHER ==
[2018-10-16] MEDS ORDERED: Sodium Chloride 0.9% 15 ML NEB ONE (11:11)
== END 2018-10-16 09:46 | disposition home or self-care (01) ==
LOC: WCC 09:45
PROVIDERS: ATTEND Family Medicine
DX: T81.89XD Other complications of procedures, not elsewhere classified, subsequent encounter (principal)
CPT/HCPCS: 97605; A4218

== ENCOUNTER 2018-10-19 14:20 | Outpatient (CLI) | payer OTHER ==
[~2018-10-19 14:20] MED LIST: Sodium Chloride 0.9% 15 ML NEB ONE
== END 2018-10-19 14:21 | disposition home or self-care (01) ==
LOC: WCC 14:20
PROVIDERS: ATTEND Family Medicine
DX: T81.89XD Other complications of procedures, not elsewhere classified, subsequent encounter (principal)
CPT/HCPCS: 97605; A4218

== ENCOUNTER 2018-10-22 11:44 | Outpatient (CLI) | payer OTHER ==
[2018-10-22] MEDS ORDERED: Sodium Chloride 0.9% 15 ML NEB ONE (15:00)
== END 2018-10-22 11:45 | disposition home or self-care (01) ==
LOC: WCC 11:44
PROVIDERS: ATTEND Family Medicine
DX: T81.89XD Other complications of procedures, not elsewhere classified, subsequent encounter (principal)
CPT/HCPCS: 36416; 97605; A4218

== ENCOUNTER 2018-10-25 13:03 | Outpatient (CLI) | payer OTHER ==
[2018-10-25] MEDS ORDERED: Sodium Chloride 0.9% 15 ML NEB ONE (15:00)
[2018-10-25] MEDS ORDERED: Lidocaine 2% PF 100 mg/5 ml Syringe ONE (15:00)
--- NOTE | 2018-10-25 15:40 | HP ---
HISTORY OF PRESENT ILLNESS: Mr. Lalo So is a very pleasant 67-year-old gentleman, who presents to the Wound Center for evaluation of a wound of the left foot subsequent to irrigation and debridement of the left 2nd, 3rd, and 4th toes on 10/05/[address] Loza. At the time of surgery, the patient also underwent wound VAC placement. Previously, the patient underwent ray amputation of the left 2nd, 3rd, and 4th toes on 10/03/[address] Loza. The patient underwent percutaneous revascularization of the left lower extremity on 09/04/[address] Loza. Upon discharge from [facility], the patient was referred to the Wound Center for assistance with dressing changes of the wound VAC. PAST MEDICAL HISTORY: 1. Diabetes mellitus. 2. Hypertension. 3. Peripheral vascular disease. PAST SURGICAL HISTORY: 1. Amputation of right 4th toe. 2. Ray amputation of left 2nd, 3rd and 4th toes. 3. Irrigation and debridement of left 2nd, 3rd, and 4th toes/wound VAC application. MEDICATIONS: 1. Flagyl. 2. Augmentin. 3. Amlodipine. 4. Clonidine. 5. Vitamin D3. 6. Plavix. 7. Amaryl. 8. Aspirin 81 mg. 9. Pravastatin. 10. Metformin. ALLERGIES: NO KNOWN DIAGNOSED ALLERGIES. SOCIAL HISTORY: Social history is negative for tobacco use. The patient admits to the moderate consumption of alcohol in the remote past. FAMILY HISTORY: Family history is negative for coronary artery disease. Family history significant for diabetes mellitus. The patient states that he has 3 brothers, who were diagnosed with diabetes mellitus. PHYSICAL EXAMINATION: VITAL SIGNS: Temperature 97.5, pulse 93, blood pressure 137/60. Accu-Chek 406. GENERAL: A 67-year-old gentleman, sitting on chair in examination room, in no acute distress. HEENT: Normocephalic and atraumatic. NECK: No nuchal rigidity. CHEST: Clear to auscultation. CV: Regular rate and rhythm. ABDOMEN: Soft. EXTREMITIES: A wound of the left foot is present, which measures approximately 5.0 x 3.0 cm. Granulation tissue is present within the wound margins. Necrotic and nonviable tissue present within the wound margins were debrided with an excisional full-thickness debridement with the use of scissors. No purulent drainage is associated with the wound. No erythema of the skin surrounding the wound is present. No maceration of the skin of the periwound is noted. A dorsalis pedis pulse is palpable on the left. No significant edema of the left foot is present on exam today. NEUROLOGIC: Grossly nonfocal. ASSESSMENT AND PLAN: 1. Left foot wound subsequent to irrigation and debridement of the left 2nd, 3rd, and 4th toes. Previously, the patient had undergone ray amputation of the left 2nd, 3rd, and 4th toes. At the time of irrigation and debridement, the patient also underwent wound VAC application. Negative pressure therapy will be continued with dressing changes of the wound VAC here in the Wound Center. I will see Mr. Yoan So again in 1 week. The patient will be seen by Dr. Loza in 2 weeks. The patient has been reminded to continue p.o. antibiotics as previously prescribed. The patient understands and is in agreement with the preceding treatment plan. 2. Diabetes mellitus. The patient's Accu-Chek in clinic today is 406. The patient has been told that, for optimal wound healing, his blood glucoses should remain below 150. 3. Hypertension. 4. Peripheral vascular disease. Job ID: [id number]
== END 2018-10-25 13:04 | disposition home or self-care (01) ==
LOC: WCC 13:03
PROVIDERS: ATTEND Family Medicine
DX: T81.89XD Other complications of procedures, not elsewhere classified, subsequent encounter (principal); E11.51 Type 2 diabetes mellitus with diabetic peripheral angiopathy without gangrene; I10 Essential (primary) hypertension; Z89.422 Acquired absence of other left toe(s); Z89.421 Acquired absence of other right toe(s); Z79.82 Long term (current) use of aspirin; Z79.899 Other long term (current) drug therapy; Z79.84 Long term (current) use of oral hypoglycemic drugs; Z83.3 Family history of diabetes mellitus; Z82.49 Family history of ischemic heart disease and other diseases of the circulatory system
CPT/HCPCS: A4218; J2001

== ENCOUNTER 2018-10-29 13:28 | Outpatient (CLI) | payer OTHER ==
[2018-10-29] MEDS ORDERED: Sodium Chloride 0.9% 15 ML NEB ONE (15:00)
== END 2018-10-29 13:29 | disposition home or self-care (01) ==
LOC: WCC 13:28
PROVIDERS: ATTEND Family Medicine
DX: T81.89XD Other complications of procedures, not elsewhere classified, subsequent encounter (principal)
CPT/HCPCS: 97605; A4218

== ENCOUNTER 2018-11-02 09:26 | Outpatient (CLI) | payer OTHER | END 2018-11-02 09:27 | disposition home or self-care (01) | LOC: WCC 09:26 | PROVIDERS: ATTEND Family Medicine | DX: T81.89XD Other complications of procedures, not elsewhere classified, subsequent encounter (principal) | CPT/HCPCS: 36416; 97605; A4218 ==

== ENCOUNTER 2018-11-05 14:55 | Outpatient (CLI) | payer OTHER | END 2018-11-05 14:56 | disposition home or self-care (01) | LOC: WCC 14:55 | PROVIDERS: ATTEND Family Medicine | DX: T81.89XD Other complications of procedures, not elsewhere classified, subsequent encounter (principal) | CPT/HCPCS: 97605; A4218 ==

== ENCOUNTER 2018-11-08 15:51 | Outpatient (CLI) | payer OTHER | END 2018-11-08 15:52 | disposition home or self-care (01) | LOC: WCC 15:51 | PROVIDERS: ATTEND Family Medicine | DX: T81.89XD Other complications of procedures, not elsewhere classified, subsequent encounter (principal) | CPT/HCPCS: 97605; A4218 ==

== ENCOUNTER 2018-11-12 13:41 | Outpatient (CLI) | payer OTHER ==
[2018-11-12] MEDS ORDERED: Sodium Chloride 0.9% 15 ML NEB ONE (18:46)
== END 2018-11-12 13:42 | disposition home or self-care (01) ==
LOC: WCC 13:41
PROVIDERS: ATTEND Family Medicine
DX: T81.89XD Other complications of procedures, not elsewhere classified, subsequent encounter (principal)
CPT/HCPCS: 97605; A4218

== ENCOUNTER 2018-11-15 13:04 | Outpatient (CLI) | payer OTHER ==
[2018-11-15] MEDS ORDERED: Sodium Chloride 0.9% 15 ML NEB ONE (18:00)
== END 2018-11-15 13:05 | disposition home or self-care (01) ==
LOC: WCC 13:04
PROVIDERS: ATTEND Family Medicine
DX: T81.89XD Other complications of procedures, not elsewhere classified, subsequent encounter (principal)
CPT/HCPCS: 97605; A4218

== ENCOUNTER 2018-11-19 15:39 | Outpatient (CLI) | payer OTHER ==
--- NOTE | 2018-11-19 15:53 | PRG ---
DATE OF SERVICE: 11/19/2018 SUBJECTIVE: Mr. Lalo So is a very pleasant 68-year-old gentleman, who presents to the Wound Center for evaluation of a wound of the left foot subsequent to irrigation and debridement of the left 2nd, 3rd, and 4th toes on 10/05/2018, by Dr. Loza. At the time of surgery, the patient also underwent wound VAC placement. Previously, the patient underwent ray amputation of the left 2nd, 3rd, and 4th toes on 10/03/2018, also by Dr. Loza. The patient underwent percutaneous revascularization of the left lower extremity on 09/04/2018, by Dr. Loza. Upon discharge from [facility], the patient was referred to the Wound Center for assistance with dressing changes of the wound VAC. PHYSICAL EXAMINATION: VITAL SIGNS: Temperature 98.0, pulse 119, respirations 19, and blood pressure 173/95. EXTREMITIES: A wound of the left foot is present, which measures approximately 2.7 x 4.5 cm. The dimensions of the wound at the time of the patient's visit on 10/25/2018, were approximately 5.0 x 3.0 cm. Granulation tissue is present within the wound margins. Necrotic and nonviable tissue present within the wound margins was debrided with an excisional full-thickness debridement with the use of scissors. No purulent drainage is associated with the wound. No erythema of the skin surrounding the wound is present. No maceration of the skin of the periwound is noted. A dorsalis pedis pulse is palpable on the left. No significant edema of the left foot is present on exam today. LABORATORY DATA: Accu-Chek 330. ASSESSMENT AND PLAN: 1. Left foot wound subsequent to irrigation and debridement of the left 2nd, 3rd, and 4th toes. Previously, the patient had undergone ray amputation of the left 2nd, 3rd, and 4th toes. At the time of irrigation and debridement, the patient also underwent wound VAC application. Negative pressure therapy will be continued with dressing changes of the wound VAC here in the Wound Center. I will see Mr. Yoan So again in 3 weeks. 2. Diabetes mellitus. The patient's Accu-Chek in clinic today is 330. The patient has been reminded that for optimal wound healing, his blood glucoses should remain below 150. 3. Hypertension. 4. Peripheral vascular disease. Job ID: [id number]
== END 2018-11-19 15:40 | disposition home or self-care (01) ==
LOC: WCC 15:39
PROVIDERS: ATTEND Family Medicine
DX: T81.89XD Other complications of procedures, not elsewhere classified, subsequent encounter (principal); I10 Essential (primary) hypertension; E11.51 Type 2 diabetes mellitus with diabetic peripheral angiopathy without gangrene
CPT/HCPCS: A4218

== ENCOUNTER 2018-11-22 15:51 | Outpatient (CLI) | payer OTHER | END 2018-11-22 15:52 | disposition home or self-care (01) | LOC: WCC 15:51 | PROVIDERS: ATTEND Family Medicine | DX: T81.89XD Other complications of procedures, not elsewhere classified, subsequent encounter (principal) | CPT/HCPCS: 97605 ==

== ENCOUNTER 2018-11-26 14:59 | Outpatient (CLI) | payer OTHER ==
[~2018-11-26 14:59] MED LIST changes: +Lidocaine 2% PF 100 mg/5 ml Syringe ONE
--- NOTE | 2018-11-26 16:33 | PRG ---
DATE OF SERVICE: 11/26/2018 HISTORY: Mr. Lalo So is a very pleasant 68-year-old gentleman, who presents to the Wound Center for evaluation of a wound of the left foot subsequent to irrigation and debridement of the left 2nd, 3rd, and 4th toes on 10/05/[address] Loza. At the time of surgery, the patient also underwent wound VAC placement. Previously, the patient underwent ray amputation of the left 2nd, 3rd, and 4th toes on 10/03/[address] Loza. The patient underwent percutaneous revascularization of the left lower extremity on 09/04/[address] Loza. Upon discharge from [facility], the patient was referred to the Wound Center for assistance with dressing changes of the wound VAC. PHYSICAL EXAMINATION: VITAL SIGNS: Temperature 97.6, pulse 92, respirations 18, blood pressure 171/76. Accu-Chek 300. EXTREMITIES: A wound of the left foot is present which measures approximately 3.5 x 2.5 cm. The dimensions of the wound at the time of the patient's visit on 11/19/2018 were approximately 2.7 x 4.5 cm. Granulation tissue is present within the wound margins. Necrotic and nonviable tissue present within the wound margins was debrided with an excisional full-thickness debridement with the use of scissors and a curette. No purulent drainage is associated with the wound. No erythema of the skin surrounding the wound is present. No maceration of the skin of the periwound is noted. No significant edema of the left foot is present on exam today. ASSESSMENT AND PLAN: 1. Left foot wound subsequent to irrigation and debridement of the left 2nd, 3rd, and 4th toes. Previously, the patient had undergone ray amputation of the left 2nd, 3rd, and 4th toes. At the time of irrigation and debridement, the patient also underwent wound VAC application. Negative pressure therapy will be continued with dressing changes of the wound VAC here in the Wound Center. I will see Mr. Milton again in 2 weeks. 2. Diabetes mellitus. The patient's Accu-Chek in clinic today is 300. The patient has been reminded that for optimal wound healing, his blood glucoses should remain below 150. 3. Hypertension. 4. Peripheral vascular disease. Job ID: [id number]
== END 2018-11-26 15:00 | disposition home or self-care (01) ==
LOC: WCC 14:59
PROVIDERS: ATTEND Family Medicine
DX: E11.621 Type 2 diabetes mellitus with foot ulcer (principal); L97.529 Non-pressure chronic ulcer of other part of left foot with unspecified severity; I10 Essential (primary) hypertension; I73.9 Peripheral vascular disease, unspecified
CPT/HCPCS: 11042; A4218; J2001

== ENCOUNTER 2018-11-29 15:06 | Outpatient (CLI) | payer OTHER ==
[2018-11-29] MEDS ORDERED: Sodium Chloride 0.9% 15 ML NEB ONE (19:45)
== END 2018-11-29 15:07 | disposition home or self-care (01) ==
LOC: WCC 15:06
PROVIDERS: ATTEND Family Medicine
DX: T81.89XD Other complications of procedures, not elsewhere classified, subsequent encounter (principal)
CPT/HCPCS: 97605; A4218

== ENCOUNTER 2018-12-03 15:06 | Outpatient (CLI) | payer OTHER ==
[2018-12-03] MEDS ORDERED: Sodium Chloride 0.9% 15 ML NEB ONE (17:52)
== END 2018-12-03 15:07 | disposition home or self-care (01) ==
LOC: WCC 15:06
PROVIDERS: ATTEND Family Medicine
DX: T81.89XD Other complications of procedures, not elsewhere classified, subsequent encounter (principal)
CPT/HCPCS: 97605; A4218

== ENCOUNTER 2018-12-06 15:16 | Outpatient (CLI) | payer OTHER ==
[~2018-12-06 15:16] MED LIST changes: -Lidocaine 2% PF 100 mg/5 ml Syringe ONE
== END 2018-12-06 15:17 | disposition home or self-care (01) ==
LOC: WCC 15:16
PROVIDERS: ATTEND Family Medicine
DX: T81.89XD Other complications of procedures, not elsewhere classified, subsequent encounter (principal)
CPT/HCPCS: 97605; A4218

== ENCOUNTER 2018-12-10 15:23 | Outpatient (CLI) | payer OTHER ==
--- NOTE | 2018-12-10 16:41 | PRG ---
DATE OF SERVICE: 12/10/2018 HISTORY: Mr. Lalo So is a very pleasant 68-year-old gentleman, who presents to the Wound Center for evaluation of a wound of the left foot subsequent to irrigation and debridement of the left 2nd, 3rd, and 4th toes on 10/05/[address] Loza. At the time of surgery, the patient also underwent wound VAC placement. Previously, the patient underwent ray amputation of the left 2nd, 3rd, and 4th toes on 10/03/[address] Loza. The patient underwent percutaneous revascularization of the left lower extremity on 09/04/[address] Loza. Upon discharge from [facility], the patient was referred to the Wound Center for assistance with dressing changes of the wound VAC. PHYSICAL EXAMINATION: VITAL SIGNS: Temperature 97.6, pulse 87, respirations 18, blood pressure 137/63. Accu-Chek 291. EXTREMITIES: A wound of the left foot is present which measures approximately 1.5 x 4.5 cm. The dimensions of the wound at the time of the patient's visit on 11/26/2018 were approximately 3.5 x 2.5 cm. Granulation tissue is present within the wound margins. Necrotic and nonviable tissue present within the wound margins was debrided with an excisional full-thickness debridement with the use of scissors and curette. No purulent drainage is associated with the wound. No erythema of the skin surrounding the wound is present. Maceration of the skin of the periwound is noted. A dorsalis pedis pulse is easily palpable on the left. No significant edema of the left foot is present on exam today. ASSESSMENT AND PLAN: 1. Left foot wound subsequent to irrigation and debridement of the left 2nd, 3rd, and 4th toes. Previously, the patient had undergone ray amputation of the left 2nd, 3rd, and 4th toes. At the time of irrigation and debridement, the patient also underwent wound VAC application. Negative pressure therapy will be discontinued today. Dressing changes of Medihoney, 4x4s and Kerlix will be initiated. These dressing changes are to be performed every other day or alternatively on a daily basis after cleansing and irrigation. I will see Mr. Milton again in 2 weeks. 2. Diabetes mellitus. The patient's Accu-Chek in clinic today is 291. The patient has been reminded that for optimal wound healing his blood glucoses should remain below 150. 3. Hypertension. 4. Peripheral vascular disease. Job ID: [id number]
[2018-12-10] MEDS ORDERED: Sodium Chloride 0.9% 15 ML NEB ONE (18:00)
== END 2018-12-10 15:24 | disposition home or self-care (01) ==
LOC: WCC 15:23
PROVIDERS: ATTEND Family Medicine
DX: T81.89XD Other complications of procedures, not elsewhere classified, subsequent encounter (principal); E11.9 Type 2 diabetes mellitus without complications; I10 Essential (primary) hypertension; I73.9 Peripheral vascular disease, unspecified
CPT/HCPCS: 11042; 36416; A4218

== ENCOUNTER 2018-12-24 15:12 | Outpatient (CLI) | payer OTHER ==
--- NOTE | 2018-12-24 16:23 | PRG ---
DATE OF SERVICE: 12/24/2018 HISTORY: Mr. Lalo So is a very pleasant 68-year-old gentleman, who presents to the Wound Center for evaluation of a wound of the left foot subsequent to irrigation and debridement of the left 2nd, 3rd, and 4th toes on 10/05/[address] Loza. At the time of surgery, the patient also underwent wound VAC placement. Previously, the patient underwent ray amputation of the left 2nd, 3rd, and 4th toes on 10/03/[address] Loza. The patient underwent percutaneous revascularization of the left lower extremity on 09/04/[address] Loza. Upon discharge from [facility], the patient was referred to the Wound Center for assistance with dressing changes of the wound VAC. PHYSICAL EXAMINATION: VITAL SIGNS: Temperature 97.4, pulse 93, respirations 18, and blood pressure 188/94. EXTREMITIES: A wound of the left foot is present, which measures approximately 1.4 x 1.0 cm. The dimensions of the wound at the time of the patient's visit on 12/10/2018 were approximately 1.5 x 4.5 cm. Granulation tissue is present within the wound margins. Necrotic and nonviable tissue present within the wound margins was debrided with an excisional full-thickness debridement with the use of scissors and a curette. No purulent drainage is associated with the wound. No erythema of the skin surrounding the wound is present. No maceration of the skin of the periwound is noted. A dorsalis pedis pulse is easily palpable on the left. No significant edema of the left foot is present on exam today. LABORATORY DATA: Accu-Chek 300. ASSESSMENT AND PLAN: 1. Left foot wound subsequent to irrigation and debridement of the left 2nd, 3rd, and 4th toes. Previously, the patient had undergone ray amputation of the left 2nd, 3rd, and 4th toes. At the time of irrigation and debridement, the patient also underwent wound VAC application. Negative pressure therapy was discontinued on 12/10/2018. Dressing changes of Medihoney, 4 x 4's, and Kerlix will be continued on a daily basis after cleansing and irrigation. I will see Mr. Yoan So again in 2 weeks. 2. Diabetes mellitus. The patient's Accu-Chek in clinic today is 300. The patient has been reminded that for optimal wound healing his blood glucoses should remain below 150. 3. Hypertension. 4. Peripheral vascular disease. Job ID: [id number]
[2018-12-24] MEDS ORDERED: Sodium Chloride 0.9% 15 ML NEB ONE (18:00)
== END 2018-12-24 15:13 | disposition home or self-care (01) ==
LOC: WCC 15:12
PROVIDERS: ATTEND Family Medicine
DX: T81.89XD Other complications of procedures, not elsewhere classified, subsequent encounter (principal); I10 Essential (primary) hypertension; E11.51 Type 2 diabetes mellitus with diabetic peripheral angiopathy without gangrene; I73.9 Peripheral vascular disease, unspecified
CPT/HCPCS: A4218

== ENCOUNTER 2019-01-07 14:37 | Outpatient (CLI) | payer OTHER ==
[~2019-01-07 14:37] MED LIST changes: +Lidocaine 2% Jelly 5 ML TUBE ONE
--- NOTE | 2019-01-07 17:13 | PRG ---
DATE OF SERVICE: 01/07/2019 HISTORY: Mr. Lalo So is a very pleasant 68-year-old gentleman, who presents to the Wound Center for evaluation of a wound of the left foot subsequent to irrigation and debridement of the left second, third, and fourth toes on 10/05/2018, by Dr. Loza. At the time of surgery, the patient also underwent wound VAC placement. Previously, the patient underwent ray amputation of the left second, third, and fourth toes on 10/03/2018, also by Dr. Loza. The patient underwent percutaneous revascularization of the left lower extremity on 09/04/2018, by Dr. Loza. Upon discharge from [facility], the patient was referred to the Wound Center for assistance with dressing changes of the wound VAC. The patient completed a course of negative pressure therapy and is now receiving dressing changes of Medihoney for his left foot wound. PHYSICAL EXAMINATION: VITAL SIGNS: Temperature 98.0, pulse 77, respirations 17, blood pressure 143/68. Accu-Cheks 300. EXTREMITIES: A wound of the left foot is present, which measures approximately 0.5 x 0.4 cm. The dimensions of the wound at the time of the patient's visit on 12/24/2018, were approximately 1.4 x 1.0 cm. Granulation tissue is present within the wound margins. Necrotic and nonviable tissue present within the wound margins was debrided with an excisional full-thickness debridement with the use of scissors and a curette. No purulent drainage is associated with the wound. No erythema of the skin surrounding the wound is present. No maceration of the skin of the periwound is noted. A dorsalis pedis pulse is easily palpable on the left. No significant edema of the left foot is present on exam today. Purulent drainage from left great ingrown toenail was noted on exam today and sent for aerobic and anaerobic cultures. ASSESSMENT AND PLAN: 1. Left foot wound subsequent to irrigation and debridement of the left second, third, and fourth toes. Previously, the patient had undergone ray amputation of the left second, third, and fourth toes. At the time of irrigation and debridement, the patient also underwent wound VAC application. Negative pressure therapy was discontinued on 12/10/2018. Dressing changes of Medihoney, 4x4's, and Kerlix will be continued on a daily basis after cleansing and irrigation. I will see Mr. Yoan So again in 2 weeks. The patient has been given a prescription for Augmentin 875/125, #20 one p.o. b.i.d. x10 days. Antibiotic therapy will be modified based upon the results of the cultures obtained today. 2. Diabetes mellitus. The patient's Accu-Chek in clinic today is 300. The patient has been reminded that for optimal wound healing, his blood glucoses should remain below 150. 3. Hypertension. 4. Peripheral vascular disease. Job ID: [id number]
[2019-01-07] MEDS ORDERED: Sodium Chloride 0.9% 15 ML NEB ONE (17:34)
== END 2019-01-07 14:38 | disposition home or self-care (01) ==
LOC: WCC 14:37
PROVIDERS: ATTEND Family Medicine
DX: T81.89XD Other complications of procedures, not elsewhere classified, subsequent encounter (principal); E11.51 Type 2 diabetes mellitus with diabetic peripheral angiopathy without gangrene; I10 Essential (primary) hypertension
CPT/HCPCS: 87070; 87077; 87205; A4218

== ENCOUNTER 2019-01-21 14:58 | Outpatient (CLI) | payer OTHER ==
--- NOTE | 2019-01-21 16:05 | PRG ---
DATE OF SERVICE: 01/21/2019 HISTORY: Mr. Lalo So is a very pleasant 68-year-old gentleman, who presents to the Wound Center for evaluation of a wound of the left foot subsequent to irrigation and debridement of the left second, third, and fourth toes on 10/05/[address] Loza. At the time of surgery, the patient also underwent wound VAC placement. Previously, the patient underwent ray amputation of the left second, third, and fourth toes on 10/03/[address] Loza. The patient underwent percutaneous revascularization of the left lower extremity on 09/04/[address] Loza. Upon discharge from [facility], the patient was referred to the Wound Center for assistance with dressing changes of the wound VAC. The patient completed a course of negative pressure therapy and is now receiving dressing changes of Medihoney for his left foot wound. PHYSICAL EXAMINATION: VITAL SIGNS: Temperature 97.8, pulse 99, respirations 21, blood pressure 175/78. Accu-Chek 210. EXTREMITIES: A wound of the left foot is still present. Granulation tissue is present within the wound margins. Necrotic and nonviable tissue present within the wound margins was debrided with an excisional full-thickness debridement with the use of scissors and a curette. No purulent drainage is associated with the wound. No erythema of the skin surrounding the wound is present. No maceration of the skin of the periwound is noted. No significant edema of the left foot is present on exam today. No purulent drainage from the left great ingrown toenail was noted on exam today as was present at the time of the patient's last visit. ASSESSMENT AND PLAN: 1. Left foot wound subsequent to irrigation and debridement of the left second, third, and fourth toes. Previously, the patient had undergone ray amputation of the left second, third, and fourth toes. At the time of irrigation and debridement, the patient also underwent wound VAC application. Negative pressure therapy was discontinued on 12/10/2018. Dressing changes of Medihoney and gauze will be continued on a daily basis after cleansing and irrigation. I will see Mr. Yoan So again on 02/06/2019. At this time, the patient will also be seen by the driver utility worker for fitting with diabetic shoes with inserts. Cultures of the purulent drainage from the left ingrown great toenail revealed the growth of Streptococcus agalactiae group B. At the time of the patient's last visit, Mr. Milton was given a prescription for Augmentin 875/125 #21 p.o. b.i.d. x10 days. 2. Diabetes mellitus. The patient's Accu-Chek in clinic today is 210. The patient has been reminded that for optimal wound healing, his blood glucoses should remain below 150. 3. Hypertension. 4. Peripheral vascular disease. Job ID: [id number]
== END 2019-01-21 14:59 | disposition home or self-care (01) ==
LOC: WCC 14:58
PROVIDERS: ATTEND Family Medicine
DX: T81.89XD Other complications of procedures, not elsewhere classified, subsequent encounter (principal); E11.9 Type 2 diabetes mellitus without complications; I10 Essential (primary) hypertension; I73.9 Peripheral vascular disease, unspecified
CPT/HCPCS: 11042

== ENCOUNTER 2019-02-06 09:15 | Outpatient (CLI) | payer OTHER ==
--- NOTE | 2019-02-06 10:43 | PRG ---
DATE OF SERVICE: 02/06/2019 HISTORY: Mr. Lalo So is a very pleasant 68-year-old gentleman, who presents to the Wound Center for evaluation of a wound of the left foot subsequent to irrigation and debridement of the left second, third, and fourth toes on 10/05/[address] Loza. At the time of surgery, the patient also underwent wound VAC placement. Previously, the patient underwent ray amputation of the left second, third, and fourth toes on 10/03/2018, also by Dr. Loza. The patient underwent percutaneous revascularization of the left lower extremity on 09/04/[address] Loza. Upon discharge from [facility], the patient was referred to the Wound Center for assistance with dressing changes of the wound VAC. The patient completed a course of negative pressure therapy and received dressing changes of Medihoney for his left foot wound. PHYSICAL EXAMINATION: VITAL SIGNS: Temperature 98.1, pulse 77, respirations 16, and blood pressure 98/64. Accu-Chek 250. EXTREMITIES: The wound of the left foot has healed completely. ASSESSMENT AND PLAN: 1. Left foot wound subsequent to irrigation and debridement of the left second, third, and fourth toes. Previously, the patient had undergone ray amputation of the left second, third, and fourth toes. At the time of irrigation and debridement, the patient also underwent wound VAC application. Negative pressure therapy was discontinued on 12/10/2018. The patient then received dressing changes of Medihoney and gauze on a daily basis after cleansing and irrigation. As stated above, the wound has healed completely. The patient has been seen by the agricultural engineer today for fitting with diabetic shoes with inserts. The patient will return to the Wound Center in 3 weeks. At this time, he will be seen again by the agricultural engineer. 2. Diabetes mellitus. The patient's Accu-Chek in clinic today is 250. 3. Hypertension. 4. Peripheral vascular disease. Job ID: [id number]
[2019-02-06] MEDS ORDERED: Sodium Chloride 0.9% 15 ML NEB ONE (18:00)
== END 2019-02-06 09:16 | disposition home or self-care (01) ==
LOC: WCC 09:15
PROVIDERS: ATTEND Family Medicine
DX: T81.89XD Other complications of procedures, not elsewhere classified, subsequent encounter (principal); E11.9 Type 2 diabetes mellitus without complications; I10 Essential (primary) hypertension; I73.9 Peripheral vascular disease, unspecified
CPT/HCPCS: 97602; A4218

== ENCOUNTER 2020-08-26 11:13 | Inpatient (IN) | payer MEDICARE, OTHER ==
[2020-08-26 11:33] LABS: #Lymphocytes 1.6 thou/uL (1.20-3.40); #Monocytes 0.5 thou/uL (0.11-0.59); #Neutrophils 5.3 thou/uL (1.40-6.50); %Basophils 0.4 % (0.0-1.0); %Eosinophils 0.3 % (0.0-10.0); %Lymphocytes 21.3 % (21.0-51.0); %Monocytes 6.5 % (0.0-10.0); %Neutrophils 71.6 % (42.0-75.0); Hemoglobin 11.5 g/dL (14.0-18.0); Mean Corpuscular HGB CONC 34.7 g/dL (32.0-36.0); Mean Corpuscular Hemoglobin 32.9 pg (27.0-31.0); Mean Corpuscular Volume 94.8 fL (78.0-98.0); Mean Platelet Volume 8.8 fL (7.4-10.4); Platelet Count 268 thou/uL (130-400); RBC Distribution Width 11.9 % (11.5-14.5); Red Blood Cell (RBC) Count 3.48 mill/uL (4.70-6.10); White Blood Cell (WBC) Count 7.4 thou/uL (4.8-10.8)
--- NOTE | 2020-08-26 11:42 | RAD ---
XR Chest 1 View Portable HISTORY: Cough, nausea and epigastric pain COMPARISON: 08/31/2018 FINDINGS: The heart size is normal. The lungs are well expanded without focal areas of consolidation, pneumothorax or pleural effusions. IMPRESSION: No radiographic evidence of acute cardiopulmonary process.
[2020-08-26 12:18] LABS: ALT (SGPT) 15 U/L (8-55); AST (SGOT) 17 U/L (5-34); Albumin 3.2 g/dL (3.4-4.8); Alkaline Phosphatase 44 U/L (40-110); Anion Gap 14 mmol/L (10-20); BUN (Urea Nitrogen) 54 mg/dL (8.4-25.7); Bilirubin, Total 0.3 mg/dL (0.2-1.2); Calc. Creatinine Clearance 0 mL/min (70-130); Calcium 8.4 mg/dL (7.8-10.44); Carbon Dioxide 23 mmol/L (23-31); Chloride 97 mmol/L (98-107); Globulin 2.2 g/dL (2.4-3.5); Glucose 334 mg/dL (80-115); Potassium 3.8 mmol/L (3.5-5.1); Protein, Total 5.4 g/dL (5.8-8.1); Sodium 130 mmol/L (136-145)
[2020-08-26 12:23] LABS: CKMB 4.4 ng/mL (0-6.6)
--- NOTE | 2020-08-26 13:23 | PDOC.HHP ---
Hospitalist HPI - History of Present Illness Epigastric pain History of Present Illness: Mr. Yoan So is a 69 year-old male with a past medical history of type 2 diabetes mellitus, hypertension, hyperlipidemia, peripheral vascular disease who was brought in by ambulance for epigastric pain. Patient reports that over the past week he has had epigastric pain associated with hiccups. He has seen his primary care doctor for this and was prescribed medications which helped, however they were too expensive so he stopped taking them. Patient reports that during these episodes of epigastric pain the pain will last approximately an hour or 2. Food does not make the pain better or worse. He denies shortness of breath or diaphoresis during these episodes. He does feel that the pain starts in his upper abdomen and radiates into his chest. Denies nausea vomiting diarrhea. He has no history of cardiac disease but does have a history of peripheral vascular disease. Patient is a non-smoker. In emergency room vital signs 117/63, 85, 16, 98% on room air, 97.6. EKG showed normal sinus rhythm with a right bundle branch block. Initial [id number] glucose over 400. Chest x-ray with no acute findings. BUN/CR 54/2.03. Sodium 130, potassium 3.8. H/H 11.5/33.0. WBC 7.4. Initial troponin 0 0.193. Beta hydroxybutyrate negative. Patient received 325 mg of aspirin and 1 L of normal saline. Of note there was an initial concern by EMS for a question of a STEMI. EMS reports that the their machine read out STEMI. ER physician reviewed these strips and confirmed that there were no ST changes. EKG in ER showed normal sinus rhythm with a right bundle branch block, no signs of ischemia.. Hospitalist ROS - Review of Systems Constitutional: denies: fever, chills, sweats, weakness, malaise, other Eyes: denies: pain, vision change, conjunctivae inflammation, eyelid inflammation, redness, other ENT: denies: ear pain, ear discharge, nose pain, nose discharge, nose c ongestion, mouth pain, mouth swelling, throat pain, throat swelling, other Respiratory: denies: cough, dry, shortness of breath, hemoptysis, SOB with excertion, pleuritic pain, sputum, wheezing, other Cardiovascular: denies: chest pain, palpitations, orthopnea, paroxysmal noc. dyspnea, edema, light headedness, other Gastrointestinal: reports: abdominal pain. denies: nausea, vomiting, diarrhea, constipation, melena, hematochezia, other Genitourinary: denies: dysuria, frequency, incontinence, hematuria, retention, other Skin: denies: rash, lesions, bridger, bruising, other Neurological: denies: weakness, numbness, incoordination, change in speech, confusion, seizures, other - Medication Medications: Home medications include Aspirin Plavix Amlodipine Clonidine Pravastatin Metformin Glimepiride Allergy to levofloxacin Hospitalist History - Past Medical History Other Medical History: Past medical history includes Hypertension Hyperlipidemia Type 2 diabetes mellitus Peripheral vascular disease - Past Surgical History Other Surgical History: Past surgical history includes Amputation of right fourth toe Amputation of left second third and fourth toes - Family History Other Family History: Patient denies family history of cardiac disease - Social History Smoking Status: Never smoker Alcohol: reports: None Drugs: reports: none Living Situation: With Family Activity level: independent ambulation - Exam General Appearance: NAD, awake alert Eye: PERRL, anicteric sclera ENT: normocephalic atraumatic, no oropharyngeal lesions, moist mucosa Neck: supple Heart: RRR, no murmur, no gallops, no rubs, normal peripheral pulses Respiratory: CTAB, no wheezes, no rales, no ronchi, normal chest expansion, no tachypnea, normal percussion Gastrointestinal: soft, non-tender, non-distended, normal bowel sounds, no palpable masses, no hepatomegaly, no splenomegaly, no bruit Extremities: no cyanosis, no clubbing, no edema Skin: normal turgor, no lesions, no rashes Neurological: cranial nerve grossly intact, normal sensation to touch, no weakness, no focal deficits, no new deficit Musculoskeletal: normal tone, normal strength, no muscle wasting Psychiatric: normal affect, normal behavior, A&O x 3 Hospitalist Results - Labs Result Diagrams: 08/26/20 11:16 08/26/20 11:48 Lab results: WBC 7.4 thou/uL (4.8-10.8) 08/26/20 11:16 Hgb 11.5 g/dL (14.0-18.0) L 08/26/20 11:16 Hct 33.0 % (42.0-52.0) L 08/26/20 11:16 MCV 94.8 fL (78.0-98.0) 08/26/20 11:16 Plt Count 268 thou/uL (130-400) 08/26/20 11:16 Neutrophils % 71.6 % (42.0-75.0) 08/26/20 11:16 Sodium 130 mmol/L (136-145) L 08/26/20 11:48 Potassium 3.8 mmol/L (3.5-5.1) 08/26/20 11:48 Chloride 97 mmol/L (98-107) L 08/26/20 11:48 Carbon Dioxide 23 mmol/L (23-31) 08/26/20 11:48 BUN 54 mg/dL (8.4-25.7) H 08/26/20 11:48 Creatinine 2.03 mg/dL (0.7-1.3) H 08/26/20 11:48 Glucose 334 mg/dL (80-115) H 08/26/20 11:48 Calcium 8.4 mg/dL (7.8-10.44) 08/26/20 11:48 Total Bilirubin 0.3 mg/dL (0.2-1.2) 08/26/20 11:48 AST 17 U/L (5-34) 08/26/20 11:48 ALT 15 U/L (8-55) 08/26/20 11:48 Alkaline Phosphatase 44 U/L (40-110) 08/26/20 11:48 CK-MB (CK-2) 4.4 ng/mL (0-6.6) 08/26/20 11:16 Troponin I 0.193 ng/mL (< 0.028) H 08/26/20 11:16 Serum Total Protein 5.4 g/dL (5.8-8.1) L 08/26/20 11:48 Albumin 3.2 g/dL (3.4-4.8) L 08/26/20 11:48 Hospitalist H&P A/P - Plan Plan: 69-year-old male with past medical history of type 2 diabetes mellitus, hypertension, hyperlipidemia, peripheral vascular disease presents with 1 week history of epigastric pain associated with hiccups found to have positive troponins. Will admit patient for chest pain rule out. Epigastric/chest pain Patient reports ongoing epigastric pain for the past week associated with hic cups. Patient describes the feeling as starting in the epigastrium and radiates up into his chest. He reports these episodes will last for 1 to 2 hours and come intermittently. Episodes do occur at rest and while exerting himself. Has seen his primary care provider for these issues and reports an unknown medication helped his symptoms. EKG showed normal sinus rhythm with no ischemic changes and a right bundle branch block. Initial troponin 0 0.193. Patient has history of peripheral vascular disease, but no history of cardiac disease. Patient is a non-smoker and has no family history of cardiac disease. Heart score 6. Patient given 325 mg of aspirin in emergency room. Will admit patient for chest pain rule out. Plan Trend troponin ASA, statin, pantoprazole Telemetry monitoring Echocardiogram We will pursue cardiac stress test if troponins remain low Elevated troponin Initial troponin elevated to 0.193. Patient denies chest pain but does endorse epigastric pain that radiates up into his chest. Patient has multiple risk factors with a heart score of 6. Patient does of note have any acute kidney injury with a BUN/CR ratio of 54/2.03. Elevated troponin may be secondary to this. If troponin stayS low we will pursue cardiac stress test as above. Plan Trend troponin Plan as above Acute kidney injury BUN/CR elevated to 54/2.03. Patient has no history of chronic kidney disease. Patient received 1 L of normal saline in emergency room. Plan Continue IV fluids Trend kidney function Avoid nephrotoxic agents where possible, renal dosing as appropriate Type 2 diabetes mellitus Patient hyperglycemic on presentation to over 400 on [id number] testing. BMP revealed a glucose of 334. Patient has a history of type 2 diabetes and reports that he avoids taking his insulin because of hypoglycemic episodes. Does take metformin and glimepiride regularly. Beta hydroxybutyrate negative. Patient has no anion gap. Plan Hold Metformin secondary to [place] ACHS glucose checks ISS Hyperlipidemia We will continue home statin Peripheral vascular disease History of peripheral vascular disease status post bilateral toe amputations. We will continue home aspirin and Plavix. Hypertension History of hypertension on home amlodipine and clonidine. We will continue. DVT prophylaxisHeparin Full code Case discussed with attending physician, Dr. Headley.
[2020-08-26] MEDS ORDERED: Nitroglycerin 0.4 MG TAB (25 Tab Bottle) SL PRN (13:36)
[2020-08-26] MEDS ORDERED: Dextrose 50% Abboject 50 ML SYRINGE SLOW IVP PRN (13:36)
[2020-08-26] MEDS ORDERED: HumaLOG 300 UNITS/3 ML VIAL SC PRN ×2 (13:36)
[2020-08-26] MEDS ORDERED: Dextrose 5% in Water 1,000 ML IV PRN (13:36)
[2020-08-26] MEDS ORDERED: Acetaminophen 325 MG TAB PO PRN (13:36)
[2020-08-26] MEDS: Sodium Chloride 0.9% 1,000 ML IV SCH ×2 (14:15→21:45)
[2020-08-26] MEDS ORDERED: Heparin 5,000 UNITS/ML VIAL SC SCH ×3 (15:00→21:00)
[2020-08-26] MEDS ORDERED: Heparin 10,000 UNITS/ 10 ML VIAL ONE (16:00)
[2020-08-26 17:50] VITALS: BMI 32.9
[2020-08-26 18:08] LABS: CKMB 9.3 ng/mL (0-6.6)
[2020-08-26 19:00] LABS: Anion Gap 11 mmol/L (10-20); BUN (Urea Nitrogen) 45 mg/dL (8.4-25.7); Calc. Creatinine Clearance 53 mL/min (70-130); Calcium 7.6 mg/dL (7.8-10.44); Carbon Dioxide 23 mmol/L (23-31); Chloride 104 mmol/L (98-107); Glucose 188 mg/dL (80-115); Potassium 3.1 mmol/L (3.5-5.1); Sodium 135 mmol/L (136-145)
[2020-08-26] MEDS: Pantoprazole 40 MG VIAL IVP SCH (21:10)
[2020-08-26] MEDS: Atorvastatin Calcium 20 MG TAB PO SCH (21:10)
[2020-08-26 22:34] LABS: SARS-CoV-2 MS2 Positive; SARS-CoV-2 N Gene Negative; SARS-CoV-2 S Gene Negative; SARS-CoV-2 by NAA Not Detected (NotDetected); SARS-CoV-2 orf1ab Negative
[2020-08-26 23:04] LABS: Troponin I 1.297 ng/mL (< 0.028)
[2020-08-26] MEDS ORDERED: Heparin 25,000 units/D5W 500 ML IVPB SCH (23:30)
[2020-08-26] MEDS ORDERED: Heparin 10,000 UNITS/ 10 ML VIAL SLOW IVP SCH (23:30)
--- NOTE | 2020-08-26 23:31 | PDOC.EVN ---
Event Note - Event Note Event Note: Nursing called, reported critical trop 1.29, continues to elevate, no active chest pain. No tele changes. D/C heparin prophylaxis. 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 Start heparin drip CV protocol.
[2020-08-26 23:56] LABS: Hemoglobin 10.9 g/dL (14.0-18.0); Platelet Count 267 thou/uL (130-400)
[2020-08-27 00:02] LABS: INR-International Normal Ratio 0.9; Prothrombin Time 12.6 sec (12.0-14.7)
[2020-08-27 00:03] LABS: PTT 27.3 sec (22.9-36.1)
[2020-08-27] MEDS: Sodium Chloride 0.9% 1,000 ML IV SCH ×3 (04:59→14:35)
[2020-08-27 05:52] LABS: #Lymphocytes 1.9 thou/uL (1.20-3.40); #Monocytes 0.5 thou/uL (0.11-0.59); #Neutrophils 4.9 thou/uL (1.40-6.50); %Basophils 0.2 % (0.0-1.0); %Eosinophils 0.4 % (0.0-10.0); %Lymphocytes 26.3 % (21.0-51.0); %Monocytes 6.6 % (0.0-10.0); %Neutrophils 66.5 % (42.0-75.0); Hemoglobin 11.2 g/dL (14.0-18.0); Mean Corpuscular HGB CONC 34.8 g/dL (32.0-36.0); Mean Corpuscular Hemoglobin 32.5 pg (27.0-31.0); Mean Corpuscular Volume 93.4 fL (78.0-98.0); Mean Platelet Volume 8.1 fL (7.4-10.4); Platelet Count 243 thou/uL (130-400); RBC Distribution Width 11.7 % (11.5-14.5); Red Blood Cell (RBC) Count 3.46 mill/uL (4.70-6.10); White Blood Cell (WBC) Count 7.3 thou/uL (4.8-10.8)
[2020-08-27 06:00] LABS: PTT 157.4 sec (22.9-36.1)
[2020-08-27 06:08] LABS: Anion Gap 13 mmol/L (10-20); BUN (Urea Nitrogen) 35 mg/dL (8.4-25.7); Calc. Creatinine Clearance 66 mL/min (70-130); Calcium 8.3 mg/dL (7.8-10.44); Carbon Dioxide 23 mmol/L (23-31); Cardiac Risk 4.5 (Less than 4.5); Chloride 103 mmol/L (98-107); Cholesterol 179 mg/dl (< 200 Desired); Glucose 95 mg/dL (80-115); HDL Cholesterol 40 mg/dL (>60 Neg Risk); LDL Cholesterol, Calculated 113 mg/dL; Potassium 3.8 mmol/L (3.5-5.1); Sodium 135 mmol/L (136-145); Triglycerides 131 mg/dL (Less than 150)
[2020-08-27] MEDS ORDERED: Clopidogrel Bisulfate 75 MG TAB PO SCH (09:00)
[2020-08-27] MEDS ORDERED: Aspirin Chewable 81 MG TAB PO SCH (09:00)
[2020-08-27] MEDS ORDERED: FLU VACC QS2020-21(65YR UP)/PF 240 MCG/0.7 ML SYRINGE IM ONE (09:00)
[2020-08-27] MEDS: Pantoprazole 40 MG VIAL IVP SCH ×2 (09:41→19:59)
--- NOTE | 2020-08-27 10:04 | PDOC.HOSPP ---
- Subjective Encounter Date: 08/27/20 Encounter Time: 08:30 Subjective: Overnight troponin continued to rise to 1.297. Patient started on heparin drip. Patient continues to deny chest pain, shortness of breath and reports that his epigastric pain has completely resolved. Denies any current concerns or complaints. Chart medications reviewed. - Objective Vital Signs & Weight: Vital Signs (12 hours) Temp Pulse Resp BP Pulse Ox 08/27/20 08:22 100 08/27/20 08:16 97 F L 78 16 151/72 H 100 08/27/20 03:49 97.8 F 81 18 135/66 100 08/27/20 00:00 97.9 F 77 18 117/59 L 98 Weight Weight 180 lb I&O: 08/26/20 08/27/20 08/28/20 06:59 06:59 06:59 Intake Total 1364 Output Total 1400 Balance -36 Result Diagrams: 08/27/20 05:00 08/27/20 05:00 Additional Labs: Accuchecks 08/27/20 08/26/20 04:55 19:32 POC Glucose 94 195 H Hospitalist ROS - Review of Systems Constitutional: denies: fever, chills, sweats, weakness, malaise, other Eyes: denies: pain, vision change, conjunctivae inflammation, eyelid inflammation, redness, other ENT: denies: nose congestion, throat pain Respiratory: denies: cough, shortness of breath, sputum, wheezing Cardiovascular: denies: chest pain, palpitations, light headedness Gastrointestinal: denies: nausea, vomiting, abdominal pain, diarrhea, constipation, melena, hematochezia Genitourinary: denies: dysuria Musculoskeletal: denies: neck pain, shoulder pain, arm pain, back pain, hand pain, leg pain, foot pain, other Skin: denies: rash, lesions Neurological: denies: weakness, numbness - Medication Medications: Active Medications Generic Name Dose Route Start Last Admin Trade Name Freq PRN Reason Stop Dose Admin Aspirin 81 mg 08/27/20 09:00 08/27/20 09:40 Aspirin Chewable 81 Mg Tab PO 81 mg DAILY BAR Administration Atorvastatin Calcium 20 mg 08/26/20 21:00 08/26/20 21:10 Atorvastatin Calcium 20 Mg Tab PO 20 mg HS BAR Administration Clopidogrel Bisulfate 75 mg 08/27/20 09:00 08/27/20 09:41 Clopidogrel Bisulfate 75 Mg Tab PO Not Given DAILY [facility] Heparin Sodium (Porcine) 0 units 08/26/20 23:30 08/27/20 00:12 Heparin 10,000 Units/ 10 Ml Vial SLOW IVP 4,000 unit ASDIR BAR Administration Protocol Sodium Chloride 1,000 mls @ 125 mls/hr 08/26/20 13:45 08/27/20 04:59 Normal Saline 0.9% IV 1,000 mls .Q8H BAR Administration Heparin Sodium/Dextrose 500 mls @ 0 mls/hr 08/26/20 23:30 08/27/20 00:13 Heparin 25,000 Units/D5w IVPB 500 mls INF BAR Administration Protocol Per Protocol Insulin Human Lispro 0 units 08/26/20 13:36 08/26/20 19:33 Humalog 300 Units/3 Ml Vial SC 2 unit .MILD SLIDING SCALE PRN Administration Mild Correctional Scale Pantoprazole Sodium 40 mg 08/26/20 21:00 08/27/20 09:41 Pantoprazole 40 Mg Vial IVP 40 mg Q12HR BAR Administration - Exam General Appearance: NAD, awake alert Eye: PERRL, anicteric sclera ENT: normocephalic atraumatic, no oropharyngeal lesions, moist mucosa Neck: supple, symmetric, no JVD, no thyromegaly, no lymphadenopathy, no carotid bruit Heart: RRR, no murmur, no gallops, no rubs, normal peripheral pulses Respiratory: CTAB, no wheezes, no rales, no ronchi, normal chest expansion, no tachypnea, normal percussion Gastrointestinal: soft, non-tender, non-distended, normal bowel sounds, no palpable masses, no hepatomegaly, no splenomegaly, no bruit Extremities: no cyanosis, no clubbing, no edema Skin: normal turgor, no lesions, no rashes Neurological: cranial nerve grossly intact, normal sensation to touch, no weakness, no focal deficits, no new deficit Musculoskeletal: normal tone, normal strength, no muscle wasting Psychiatric: normal affect, normal behavior, A&O x 3 Hosp A/P - Plan 69-year-old male with past medical history of type 2 diabetes mellitus, hypertension, hyperlipidemia, peripheral vascular disease presents with 1 week history of epigastric pain associated with hiccups found to have elevated troponin and NSTEMI. NSTEMI Patient reports ongoing epigastric pain for the past week associated with hiccups. Patient describes the feeling as starting in the epigastrium and radiates up into his chest. He reports these episodes will last for 1 to 2 ho urs and come intermittently. Episodes do occur at rest and while exerting himself. Has seen his primary care provider for these issues and reports an unknown medication helped his symptoms. EKG showed normal sinus rhythm with no ischemic changes and a right bundle branch block. Patient has history of peripheral vascular disease, but no history of cardiac disease. Patient is a non-smoker and has no family history of cardiac disease. Heart score 6. Patient given 325 mg of aspirin in emergency room. Troponin 0.19, 0.158, 0.409, 1.297. Patient started on heparin drip given [place]. Cardiology consulted, recommendations appreciated. Plan NSTEMI -Heparin drip ASA, statin, pantoprazole Telemetry monitoring Echocardiogram Cardiology consulted, reccs appreciated Acute kidney injury BUN/CR elevated to 54/2.03. Patient has no history of chronic kidney disease. Patient received 1 L of normal saline in emergency room and additional IVF. 12/3 Cr improving to 1.25. Plan Continue IV fluids Trend kidney function Avoid nephrotoxic agents where possible, renal dosing as appropriate Type 2 diabetes mellitus Patient hyperglycemic on presentation to over 400 on [id number] testing. BMP revealed a glucose of 334. Patient has a history of type 2 diabetes and reports that he avoids taking his insulin because of hypoglycemic episodes. Does take metformin and glimepiride regularly. Beta hydroxybutyrate negative. Patient has no anion gap. Plan Hold Metformin secondary to [place] ACHS glucose checks ISS Hyperlipidemia We will continue home statin Peripheral vascular disease History of peripheral vascular disease status post bilateral toe amputations. We will continue home aspirin and Plavix. Hypertension History of hypertension on home amlodipine and clonidine. We will continue. DVT prophylaxisHeparin Full code Case discussed with attending physician, Dr. Headley.
--- NOTE | 2020-08-27 11:02 | NM ---
Exam: Nuclear medicine rest only imaging HISTORY: Stress portion not completed as per ordering physician. Troponin is resultant positive overn ight. TECHNIQUE: Patient was administered 28.8 mCi of technetium 99m sestamibi for rest only imaging FINDINGS: There is decreased radio tracer localization along the apex and septum IMPRESSION: Decreased radiotracer localization as above.
[2020-08-27 11:07] LABS: CKMB 7.7 ng/mL (0-6.6)
[2020-08-27] MEDS ORDERED: Communication Order-Pharmacy FS SCH (11:30)
[2020-08-27] MEDS ORDERED: Fentanyl 100 MCG/2 ML VIAL ONE (12:33)
--- NOTE | 2020-08-27 12:33 | CON ---
DATE OF CONSULTATION: REASON FOR CONSULTATION: Non-ST elevation myocardial infarction. HISTORY OF PRESENT ILLNESS: Mr. Milton is a 69-year-old gentleman with history of diabetes for about 30 years, peripheral vascular disease, and elevated cholesterol with a non-ST elevation infarction. The patient has been having chest pain for several days. The patient's pain last night was very severe. He is pain-free today, but the troponin levels are elevated. The patient otherwise does have a history of peripheral vascular disease. He did require surgical therapy for infected foot, previously was seen by Dr. Loza and in September 2018, underwent left popliteal balloon angioplasty, was noted to have some tortuosity of the aortoiliac segment. He did undergo surgical therapy by Dr. Loza with ray amputation toes 2, 3, and 4 in the left foot. He also had infection, but was able to be cleared eventually. The patient has done well from a cardiac standpoint. He has not had previous chest pain or pressure, otherwise has been in relatively good physical condition. MEDICATIONS: 1. Clonidine 0.2 mg twice a day. 2. Plavix 75 mg a day. 3. Aspirin. 4. Metformin. 5. Pravastatin. REVIEW OF SYSTEMS: CONSTITUTIONAL: No significant weight gain or loss. VISION: No changes. HEARING: No changes. PULMONARY: No cough or wheezing. GASTROINTESTINAL: No nausea, vomiting, or diarrhea. SKIN: No rashes. NEUROLOGIC: No unilateral weakness or numbness. PSYCHIATRIC: No unusual depression or anxiety. PHYSICAL EXAMINATION: GENERAL: This is a 69-year-old thin gentleman, in no distress. VITAL SIGNS: Blood pressure 150/70, pulse 78 and regular. LUNGS: Clear. CARDIAC: Normal S1, normal S2. There is a 1 to 2/6 mid systolic murmur at left lower sternal border. ABDOMEN: Soft, nontender. EXTREMITIES: Warm, dry. No clubbing. No cyanosis. No edema. Pulses; I feel femoral pulses bilaterally. I feel popliteal pulses. I do not feel pedal pulses. LABORATORY DATA: Troponin levels mentioned 1.72. EKG, sinus rhythm with a right bundle-branch block. LDL cholesterol still elevated at 113. ASSESSMENT: 1. Non-ST elevation myocardial infarction. 2. Right bundle-branch block. 3. Peripheral vascular disease. 4. Hypercholesterolemia, suboptimal control. PLAN: Recommend cardiac catheterization. Discussed risks through an dry color tester including stroke, heart attack, iodine allergy, loss of blood flow to the leg or kidney, stent thrombosis, stent restenosis were all discussed. He understands and wishes to proceed. Job ID: [id number]
[2020-08-27] MEDS ORDERED: Midazolam HCl 2 mg/2 ml Vial ONE (12:34)
[2020-08-27] MEDS ORDERED: Metoprolol Tartrate 5 MG/5 ML VIAL ONE (12:46)
[2020-08-27] MEDS ORDERED: Heparin 10,000 UNITS/ 10 ML VIAL ONE (12:48)
[2020-08-27] MEDS ORDERED: Sodium Chloride 0.9% 200 ML IV PRN (13:13)
[2020-08-27] MEDS ORDERED: Nitroglycerin 0.4 MG TAB (25 Tab Bottle) SL PRN (13:13)
[2020-08-27] MEDS ORDERED: Acetaminophen/Codeine 30-300mg Tablet PO PRN ×2 (13:13)
[2020-08-27] MEDS ORDERED: Iopamidol 370 76% 100 ML VIAL ONE (13:22)
[2020-08-27] MEDS ORDERED: Heparin 25,000 units/D5W 500 ML ONE (13:29)
[2020-08-27 13:32] LABS: Critical Call Chem Troponin I RESULT DECREASING
[2020-08-27] MEDS ORDERED: Metoprolol Tartrate 25 MG TAB PO SCH ×3 (14:01→21:00)
[2020-08-27] MEDS: Nitroglycerin 2% Ointment 1 INCH/1 GM Packet TOP SCH ×2 (14:25→22:39)
[2020-08-27] MEDS ORDERED: Heparin 10,000 UNITS/ 10 ML VIAL SLOW IVP SCH (14:30)
[2020-08-27] MEDS ORDERED: Heparin 25,000 units/D5W 500 ML IV SCH (14:30)
[2020-08-27] MEDS ORDERED: Communication Order-Pharmacy FS ONE (15:43)
[2020-08-27] MEDS ORDERED: CEFAZOLIN 2 GM in Premix Bag 1 BAG IVPB SCH (15:45)
[2020-08-27 17:12] LABS: Hemoglobin A1c 10.6 % (4.0-6.0)
[2020-08-27] MEDS: Atorvastatin Calcium 20 MG TAB PO SCH (19:59)
--- NOTE | 2020-08-27 20:57 | CON ---
DATE OF CONSULTATION: 08/27/2020 REQUESTING PHYSICIAN: Dr. Wright. CHIEF COMPLAINT: Epigastric pain and hiccups. HISTORY OF PRESENT ILLNESS: The patient is a 69-year-old diabetic man with known peripheral vascular disease, who about 3 or 4 days ago began developing epigastric discomfort that was associated with hiccups. It would come and go, but it culminated in a particularly protracted and severe episode, associated with shortness of breath. Upon presentation to the emergency room, he was noted to be significantly hyperglycemic but not ketotic. His purported ST elevations by EMS proved to be a right bundle branch block, but his initial troponin 2 to 3 hours after presentation was mildly elevated, it continued to elevate however, peaking at 1.720 midmorning today. His initial troponin was 0.158. A nuclear medicine stress test had been ordered and the resting images showed decreased radiotracer uptake along the apex and septum, and the stress images were not performed. Cardiac catheterization demonstrates severe 3-vessel coronary artery disease that included a distal left main lesion that extended into the ostia of both the LAD and the circumflex. Echocardiography showed an ejection fraction of approximately 55% with concentric LVH, but no wall motion or valvular abnormalities. PAST MEDICAL HISTORY: Significant for diabetes mellitus, hypertension, and peripheral vascular disease, in 2016 he underwent drug coated balloon UX RESEARCH ASSOCIATE of the right popliteal artery for limb salvage and interphalangeal amputation of the right 4th toe. In August of 2018, he underwent drug coated balloon angioplasty of the left popliteal artery and a 6 x 80 mm Innova stent placement in the distal left SFA/proximal popliteal artery for limb salvage. He wanted to avoid toe amputation at that time, but presented in September of 2018, he presented with progression of pain and development of wet gangrenous changes on the 4th toe and ultimately underwent ray amputation of toes 2, 3, and 4 on the left foot. HOME MEDICATIONS: 1. Baby aspirin a day. 2. Plavix 75 mg a day. 3. Clonidine 0.2 mg b.i.d. 4. Pravastatin 80 mg a day. 5. Metformin 1000 mg b.i.d. 6. Glimepiride 4 mg q.a.m. Because of financial constraints, he is inconsistently compliant with medical regimen. He says it has been about four days since he took his Plavix. Currently, he is on; 1. Aspirin. 2. Lipitor. 3. Protonix. 4. Sliding scale insulin. 5. His Plavix is on hold. ALLERGIES: HE CURRENTLY DENIES ANY MEDICAL ALLERGIES TO ME, BUT HE PREVIOUSLY DESCRIBED AN ALLERGY TO [facility]. SOCIAL HISTORY: He does not smoke. FAMILY HISTORY: Significant for his father dying at age 60, although he is unclear as to the cause. His mother is in her mid 80s. REVIEW OF SYSTEMS: Negative for any eye, speech, facial, or extremity symptoms consistent with TIAs. Negative for any recent illnesses, cough, or fever. He has no shortness of breath other than that associated with one of his episodes of epigastric discomfort immediately prior to presentation. He has had no new development of claudication or rest pain symptoms or any tissue loss. PHYSICAL EXAMINATION: GENERAL: He is in no distress and indicates that he is free of any discomfort. VITAL SIGNS: Height 5 feet 2 inches, weight is 180 pounds. In the emergency room, his heart rate was 94, blood pressure 104/52, and temperature 97.6. Currently, his heart rate is 72, blood pressure in 140s systolic, room air O2 saturations were 99%. HEENT: He has no xanthelasma. NECK: No JVD. No carotid bruits. CHEST: Clear to auscultation. HEART: He has a regular rate and rhythm without murmur or gallop. ABDOMEN: Soft and nontender. EXTREMITIES: Difficulty palpating his right radial pulses. Left arm is his nondominant arm, he has a palpable radial pulse. I am not able to get his pulse ox waveform to completely go away with compression of radial and ulnar arteries, but I am able to get it to significantly dampen and then reverts to a normal waveform with release of the ulnar side. He has palpable left femoral pulse. He has a right femoral sheath in place. He is missing toes 2, 3, and 4 on the left foot and the 4th toe on the right foot. He has no obvious varicosities. No clubbing, cyanosis, or edema. LABORATORY DATA: His white count was 7.4, hemoglobin 11.5, hematocrit 33.0, platelets 268,000, and that remained stable. On presentation, his PT was 12.6, INR 0.9, PTT 27.3. He is currently on heparin drip and his ACT shortly after loading was 191. On presentation, his sodium was 130, potassium 3.8, chloride 97, CO2 was 23, glucose 334, BUN 54, creatinine 2.03 with an estimated GFR of 33. On followup, his glucose was 188, BUN 45, creatinine 1.55 with an estimated GFR of 45, and this morning his glucose was 95, BUN 35, creatinine 1.25 with an estimated GFR of 58. His LFTs were normal. Calcium 8.4, albumin 3.2. His troponin about 2:00 in the afternoon yesterday was 0.158 and about 5:00 in the evening was 0.409, about 6:30 it was 0.446, about 10:15 last night 1.297, about 9:30 this morning 1.720, and about 1:00 this afternoon 1.140. Fasting lipids were triglycerides 131, total cholesterol 179, with LDL 113 and HDL 40. His chest x-ray was essentially normal with slightly prominent pleural markings. His EKG showed a right bundle branch block. His cardiac catheterization shows a right-dominant system. He has about 50% or 60% distal left main that extends into the ostia of the LAD and the circumflex. The ostial LAD compromises similar, perhaps about 50% or 60%, but it is subtotal at the origin of the circumflex. He has relatively modest size OM1 and then the groove circ terminates in several tiny vessels. The LAD obstructs just at the first septal traffic coordinator and can only very faintly be seen on right-sided injections. The septal perforators of the occluded segment can be seen far better than the LAD itself. Isolated between the left main and the LAD occlusion is a fairly good sized diagonal that bifurcates that is associated with an 80% to 90% proximal stenosis. There is diffuse irregularity in the right coronary, getting worse as one goes distally at the crux. There is probably about a 60% or 70% lesion in the posterolateral branch. There seems to be one proximally perhaps proximal disease in the PDA as well. The proximal portions of the LAD and circumflex have extensive calcifications and almost the entire right coronary is calcified. The impression one gets is that the extent of the calcium on the right coronary is such that the true degree of stenosis of the right is probably considerably more than simply based upon measurements of the dye column. No ventriculogram was done. The echocardiogram showed an LVEF of 55% to 60%. IMPRESSION AND RECOMMENDATIONS: Left main coronary artery disease with LAD occlusion as well as significant disease in the ostium of the circumflex, a large size diagonal, and more modest disease in the right coronary system. The LVEF is preserved. The patient is currently pain free. We will in view of his renal insufficiency, hydrate overnight. He is on heparin now and I will stop that early in the morning and plan on coronary artery bypass grafting tomorrow. In light of his peripheral vascular disease and review of his arteriograms from 2017 and 2018, his revascularization options at least at the time of those angios probably a bit more promising on the right side than on the left. We will try to limit the vein harvest and we will probably harvest from the right side if ultrasonographic examination suggested that it will be of acceptable size and quality. Job ID: [id number]
[2020-08-28 00:45] LABS: PTT 116.1 sec (22.9-36.1)
[2020-08-28] MEDS: Sodium Chloride 0.9% 1,000 ML IV SCH ×3 (01:21→14:00)
[2020-08-28 04:18] LABS: #Lymphocytes 1.5 thou/uL (1.20-3.40); #Monocytes 0.4 thou/uL (0.11-0.59); #Neutrophils 3.7 thou/uL (1.40-6.50); %Basophils 0.4 % (0.0-1.0); %Eosinophils 0.5 % (0.0-10.0); %Lymphocytes 25.6 % (21.0-51.0); %Monocytes 7.8 % (0.0-10.0); %Neutrophils 65.6 % (42.0-75.0); Hemoglobin 10.4 g/dL (14.0-18.0); Mean Corpuscular HGB CONC 35.2 g/dL (32.0-36.0); Mean Corpuscular Hemoglobin 32.9 pg (27.0-31.0); Mean Corpuscular Volume 93.6 fL (78.0-98.0); Mean Platelet Volume 8.2 fL (7.4-10.4); Platelet Count 237 thou/uL (130-400); RBC Distribution Width 11.8 % (11.5-14.5); Red Blood Cell (RBC) Count 3.15 mill/uL (4.70-6.10); White Blood Cell (WBC) Count 5.7 thou/uL (4.8-10.8)
[2020-08-28 04:42] LABS: Anion Gap 12 mmol/L (10-20); BUN (Urea Nitrogen) 17 mg/dL (8.4-25.7); Calc. Creatinine Clearance 80 mL/min (70-130); Calcium 7.9 mg/dL (7.8-10.44); Carbon Dioxide 23 mmol/L (23-31); Chloride 105 mmol/L (98-107); Glucose 187 mg/dL (80-115); Potassium 3.8 mmol/L (3.5-5.1); Sodium 136 mmol/L (136-145)
[2020-08-28] MEDS ORDERED: Fentanyl 250 MCG/5 ML VIAL ONE ×2 (06:27)
[2020-08-28] MEDS ORDERED: Midazolam HCl 2 mg/2 ml Vial ONE ×2 (06:27→07:21)
[2020-08-28] MEDS ORDERED: Midazolam HCl 5 mg/5 ml Vial ONE (06:28)
[2020-08-28] MEDS ORDERED: Albumin 5% 500 ML ONE (06:31)
[2020-08-28] MEDS: Nitroglycerin 2% Ointment 1 INCH/1 GM Packet TOP SCH (06:40)
[2020-08-28] MEDS ORDERED: Heparin 10,000 UNITS/1 ML VIAL 30,000 UNITS in Sodium Chloride 0.9% 1,000 ML FS SCH (07:00)
[2020-08-28] MEDS ORDERED: Midazolam HCl 2 mg/2 ml Vial SLOW IVP SCH (07:30)
[2020-08-28] MEDS ORDERED: Papaverine 60 MG/2 ML VIAL ONE ×2 (07:54→10:33)
[2020-08-28] MEDS ORDERED: Insulin Regular 300 UNITS/3 ML VIAL ONE (08:28)
[2020-08-28] MEDS ORDERED: PHENYLEPHRINE-NS 100 MCG/ML 10 ML SYRINGE ONE ×3 (08:41→12:11)
[2020-08-28] MEDS ORDERED: Heparin 30,000 units/30 ml VIAL ONE (10:33)
[2020-08-28] MEDS ORDERED: Cardioplegic Soln 1,000 ML BAG ONE (10:33)
[2020-08-28] MEDS ORDERED: Sodium Bicarb 50 MEQ/50 ML Abboject 8.4% SYRINGE ONE (10:33)
[2020-08-28] MEDS ORDERED: Thrombin 5000 UNITS/5 ML VIAL ONE (10:33)
[2020-08-28] MEDS ORDERED: Potassium Chloride 60 MEQ/30 ML VIAL ONE (10:33)
[2020-08-28] MEDS ORDERED: Magnesium Sulfate 1 GM/2 ML VIAL ONE (10:33)
[2020-08-28] MEDS ORDERED: Protamine Sulfate 250 MG/25 ML VIAL ONE (10:33)
[2020-08-28] MEDS ORDERED: Ondansetron PF 4 MG/2 ML Vial ONE (10:33)
[2020-08-28] MEDS ORDERED: Lidocaine 2% PF 100 mg/5 ml Syringe ONE (10:33)
[2020-08-28] MEDS ORDERED: Calcium Chloride 1 GM/10 ML Abboject SYRINGE ONE (10:33)
[2020-08-28] MEDS ORDERED: Mannitol 12.5 GM/50 ML ONE (10:33)
[2020-08-28] MEDS ORDERED: DOPamine 400 MG/10 ML VIAL ONE (10:33)
[2020-08-28] MEDS ORDERED: Heparin 5,000 UNITS/ML VIAL ONE (10:33)
[2020-08-28] MEDS ORDERED: PROPOFOL 200 MG/20 ML VIAL ONE (10:33)
[2020-08-28] MEDS ORDERED: Vecuronium 10 MG VIAL ONE (10:33)
[2020-08-28] MEDS ORDERED: Rocuronium Bromide 10 MG/ML (10ML VIAL) ONE (10:33)
[2020-08-28] MEDS ORDERED: Aminocaproic Acid 5 GM/20 ML VIAL ONE (10:33)
[2020-08-28] MEDS ORDERED: Acetaminophen 325 MG TAB PO PRN (12:45)
[2020-08-28] MEDS ORDERED: Guaifenesin DM 100-10/5 ML UDCUP PO PRN (12:45)
[2020-08-28] MEDS ORDERED: hydrALAZINE 20 MG/ML VIAL SLOW IVP PRN (12:45)
[2020-08-28] MEDS ORDERED: Post-Op Insulin Drip Protocol IVPB ONE (12:45)
[2020-08-28] MEDS ORDERED: Bisacodyl 10 MG SUPP PR PRN (12:45)
[2020-08-28] MEDS ORDERED: HYDROcodone/Acetaminophen 5/325 mg Tablet PO PRN (12:45)
[2020-08-28] MEDS ORDERED: Ondansetron PF 4 MG/2 ML Vial IVP PRN (12:45)
[2020-08-28] MEDS ORDERED: Fentanyl 100 MCG/2 ML VIAL SLOW IVP PRN ×2 (12:45)
[2020-08-28] MEDS ORDERED: Mag-Al 1200 mg/1200 mg/30 ML UDCUP PO PRN (12:45)
[2020-08-28] MEDS ORDERED: Bisacodyl 5 MG TAB PO PRN (12:45)
[2020-08-28] MEDS ORDERED: Norepinephrine 8 MG/0.9% NS 250 ML IVPB PRN (12:45)
[2020-08-28] MEDS ORDERED: Nitroglycerin 50 MG/250 ML BOT 250 ML IVPB PRN (12:45)
[2020-08-28] MEDS ORDERED: niCARdipine 25 MG in Sodium Chloride 0.9% 250 ML 240 ML IVPB PRN (12:45)
[2020-08-28] MEDS ORDERED: Hetastarch 6% 500 ML 500 ML IVPB PRN (12:45)
[2020-08-28] MEDS ORDERED: Docusate 100 MG CAP PO SCH (13:00)
[2020-08-28] MEDS ORDERED: Famotidine/PF 20 mg/2ml Vial SLOW IVP SCH (13:00)
[2020-08-28 13:14] LABS: Actual Bicarbonate (HCO3a) 20.8 mEq/L (22-28); Base Excess (BEa) -3.6 mEq/L (-2.0 to +3.0); CO2 Tension 35.6 mmHg (35.0-45.0); Calcium, Ionized (arterial) 1.17 mmol/L (1.12-1.30); Carboxyhemoglobin (COHb) 0.6 gm% (0.0-3.0); Hemoglobin (Hb) 12.4 g/dL (14.0-18.0); O2 Tension (PaO2), arterial 156.9 mmHg (> 80.0); Potassium - ABG Lab 3.62 mmol/L (3.70-5.30); pH, Arterial 7.39 (7.35-7.45)
[2020-08-28] MEDS ORDERED: Insulin Regular 300 UNITS/3 ML VIAL SC PRN (13:15)
[2020-08-28] MEDS ORDERED: Dextrose 5% in Water 1,000 ML IV PRN (13:15)
[2020-08-28] MEDS ORDERED: Dextrose 50% Abboject 50 ML SYRINGE SLOW IVP PRN (13:15)
[2020-08-28] MEDS ORDERED: HUMULIN R 100 UNITS in Sodium Chloride 0.9% 100 ML IVPB SCH (13:15)
[2020-08-28 13:17] LABS: Puncture Site Arterial Line
[2020-08-28 13:41] LABS: INR-International Normal Ratio 1.3; PTT 29.4 sec (22.9-36.1)
[2020-08-28 13:43] LABS: #Basophils 0.1 thou/uL (0.0-0.2); #Eosinphils 0.1 thou/uL (0.0-0.7); #Monocytes 0.4 thou/uL (0.11-0.59); #Neutrophils 8.3 thou/uL (1.40-6.50); %Basophils 0.5 % (0.0-1.0); %Eosinophils 0.8 % (0.0-10.0); %Lymphocytes 10.3 % (21.0-51.0); %Monocytes 4.2 % (0.0-10.0); %Neutrophils 84.2 % (42.0-75.0); Hemoglobin 12.2 g/dL (14.0-18.0); Mean Corpuscular HGB CONC 35.6 g/dL (32.0-36.0); Mean Corpuscular Volume 92.8 fL (78.0-98.0); Mean Platelet Volume 8.6 fL (7.4-10.4); Platelet Count 109 thou/uL (130-400); Potassium 3.7 mmol/L (3.5-5.1); RBC Distribution Width 12.6 % (11.5-14.5); White Blood Cell (WBC) Count 9.9 thou/uL (4.8-10.8)
[2020-08-28 13:47] LABS: Anion Gap 11 mmol/L (10-20); BUN (Urea Nitrogen) 15 mg/dL (8.4-25.7); Calc. Creatinine Clearance 96 mL/min (70-130); Calcium 7.6 mg/dL (7.8-10.44); Carbon Dioxide 21 mmol/L (23-31); Chloride 112 mmol/L (98-107); Glucose 150 mg/dL (80-115); Potassium 3.7 mmol/L (3.5-5.1); Sodium 140 mmol/L (136-145)
[2020-08-28] MEDS: Morphine 2 MG/ML VIAL SLOW IVP PRN ×2 (13:59→14:33)
--- NOTE | 2020-08-28 14:05 | PDOC.HOSPP ---
- Subjective Encounter Date: 08/28/20 Encounter Time: 14:00 Subjective: Patient returned from or he is sedated. He has a chest tube. Discussed with RN. Blood pressure in the monitor systolic over 160. - Objective Vital Signs & Weight: Vital Signs (12 hours) Temp Pulse 08/28/20 13:18 93 08/28/20 07:00 98.2 F 08/28/20 03:00 98.2 F Weight Weight 180 lb Most Recent Monitor Data Heart Rate from ECG 86 NIBP 158/101 NIBP BP-Mean 120 Respiration from ECG 12 SpO2 100 I&O: 08/27/20 08/28/20 08/29/20 06:59 06:59 06:59 Intake Total 1364 2326 Output Total 1400 2300 325 Balance -36 26 -325 Result Diagrams: 08/28/20 13:15 08/28/20 13:15 Additional Labs: Accuchecks 08/28/20 08/28/20 08/28/20 11:59 11:15 10:32 POC Glucose 133 H 135 H 91 08/28/20 08/28/20 08/28/20 10:00 09:25 08:04 POC Glucose 75 118 H 200 H 08/28/20 08/28/20 08/27/20 05:44 00:54 16:11 POC Glucose 170 H 193 H 141 H Hosp A/P - Plan 69-year-old male with past medical history of type 2 diabetes mellitus, hypertension, hyperlipidemia, peripheral vascular disease presents with 1 week history of epigastric pain associated with hiccups found to have elevated troponin and NSTEMI. NSTEMI Left main coronary disease with LAD occlusion Right bundle branch block Peripheral vascular disease Coronary artery disease -Status post CABG ---operative report pending -Chest tube ASA, statin, pantoprazole Acute kidney injury BUN/CR elevated to 54/2.03. Patient has no history of chronic kidney disease. Patient received 1 L of normal saline in emergency room and additional IVF. Improved Type 2 diabetes mellitus, uncontrolled A1c of 10 point Patient hyperglycemic on presentation to over 400 on [id number] testing. -We will follow the post CABG protocol for tight blood glucose control starting from blood glucose level of 120 -metformin and glimepiride regularly. - -On hold Hyperlipidemia We will continue home statin -LDL LDL of 113 -Start him on Lipitor. Peripheral vascular disease History of peripheral vascular disease status post bilateral toe amputations. We will continue home aspirin and Plavix. Hypertension History of hypertension on home amlodipine and clonidine. We will continue. Full code
--- NOTE | 2020-08-28 14:11 | RAD ---
SINGLE VIEW OF THE CHEST: COMPARISON: 08/26/20 HISTORY: Status post open heart surgery. FINDINGS: Single view of the chest shows a normal sized cardiomediastinal silhouette. The patient is status po st sternotomy. There is an endotracheal tube with its tip just above the karla in good position. A l eft subclavian central venous catheter is seen with its tip in the superior vena cava. Mediastinal d rains are seen. There is no evidence of consolidation, mass, pneumothorax or pleural effusion. IMPRESSION: Appropriate position of lines and tubes status post sternotomy. POS: EAA
[2020-08-28] MEDS: Potassium Chloride 20 MEQ/100 ML PREMIX BAG IVPB PRN ×2 (15:51→22:10)
--- NOTE | 2020-08-28 16:19 | EKG ---
Test Reason : POST CABG Blood Pressure : / mmHG Vent. Rate : 086 BPM Atrial Rate : 086 BPM P-R Int : 132 ms QRS Dur : 118 ms QT Int : 400 ms P-R-T Axes : 061 038 049 degrees QTc Int : 478 ms Normal sinus rhythm Right bundle branch block Septal infarct (cited on or before 26-AUG-2020) Cannot rule out Inferior infarct , age undetermined Abnormal ECG When compared with ECG of 26-AUG-2020 11:16, (Unconfirmed) Questionable change in initial forces of Septal leads ST no longer elevated in Inferior leads Confirmed by DR. Douglas HODGE ([id number]) on 08/28/2020 4:19:24 PM Referred By: NATALIE Confirmed By:DR. Douglas HODGE
--- NOTE | 2020-08-28 18:54 | OP ---
DATE OF PROCEDURE: 08/28/2020 PROCEDURE PERFORMED: Coronary artery bypass grafting x5 with left internal mammary artery to the distal left anterior descending, separate reverse greater saphenous vein graft from the aorta to the first diagonal and from the aorta to the first obtuse marginal and sequential reverse greater saphenous vein graft from aorta to the PDA to the posterolateral branch of the right coronary artery. Left radial artery exploration. PREOPERATIVE DIAGNOSES: Left main coronary artery disease, status post [id number] myocardial infarction; peripheral vascular disease; chronic renal insufficiency; diabetes mellitus; hypertension. POSTOPERATIVE DIAGNOSES: Left main coronary artery disease, status post eeq-OV-whiztmfti myocardial infarction; peripheral vascular disease; chronic renal insufficiency; diabetes mellitus; hypertension. MANAGER SECURITY AND SAFETY: Bill Artis MD ANESTHESIA: General endotracheal anesthesia. INDICATIONS: The patient is a 69-year-old hypertensive diabetic man, who has undergone percutaneous revascularization procedures for limb salvage in both legs. He has lost 1 toe on the right foot and 3 toes on the left. He presented with new onset of epigastric pain associated with hiccups. When he presented, he had a particularly severe and protracted episode. He had a right bundle-branch block on his EKG and his troponins had a rise and fall consistent with a [id number] myocardial infarction. Cardiac catheterization demonstrates a distal left main lesion extending into the ostium of the LAD and causing a subtotal occlusion of the origin of the circumflex. The LAD occludes at the level of the first septal health social work professor, isolating a stenotic bifurcated first diagonal. He has diffuse irregularity in his right coronary system with significant disease as one approaches the crux in the branch vessels and by echocardiography, he has preserved left ventricular systolic function. He is now taken to the operating room for revascularization. FINDINGS: The left radial artery for 6 or 8 cm distally was hard and calcified and deemed an unsuitable conduit for bypass graft. The saphenous vein was of good quality, although below the knee, it became somewhat small. The left mammary was slightly small, but of good quality and had excellent flow. The aorta was soft. The distal LAD was about a 1.5 mm vessel with posterior plaquing. The diagonal was about 2 mm vessel prior to its bifurcation. The OM1 was about 2 mm vessel. The distal right coronary in the proximal branch vessels were associated with hard plaque. The PDA proximally was somewhat sclerotic. It was about a 1.5 mm vessel. The distal posterolateral branch was a good vessel about 1.5 mm in caliber. The pericardium was closed. DESCRIPTION OF PROCEDURE: After informed consent was obtained, the patient was taken to the operating room and placed in supine position on the operating table. After the induction of general endotracheal anesthesia, his left greater saphenous vein was ultrasonographically mapped and marked. The left vein was selected for harvest because of shallow wound on the tip of his right great toe suggestive of recurrence of disease on that side. The patient was placed in Trendelenburg and his left upper chest was prepped and draped in sterile fashion. A triple lumen central line kit was used to place a left subclavian central line by the Seldinger technique. All 3 ports were easily aspirated and flushed. The patient's torso, groins, left upper extremity, and bilateral lower extremities were prepped and draped in sterile fashion. An incision was made over the palpable radial pulse at the wrist. It was exposed and found to be hard and noncompressible. It was followed up a few centimeters proximal apex of the 3 to 4 cm incision and it was still fairly hard vessel. It was deemed unlikely to be a suitable conduit for grafting and that wound was closed in layers of subcutaneous and subcuticular Vicryl, and the wound was dressed and the arm was tucked. My anesthesiologist assistant certified exposed the greater saphenous vein just above the left knee and then endoscopically harvested it from groin to about 1-1/2 handbreadth below the knee using stab incisions for the proximal and distal ligation and division points. The port site at the knee was closed in layers of subcuticular and subcuticular Vicryl. Ultimately, Dermabond was used for the stab incisions. A median sternotomy was performed. The left internal mammary artery was harvested as a skeletonized in-situ graft from the level of the xiphoid to the level of the subclavian vein through an extrapleural exposure. The patient was heparinized and the mammary was ligated and divided distally. There was good flow through the mammary and it dilated nicely when still intraluminally with papaverine solution. The mammary bed was inspected for hemostasis. The medial reflections of the left pleura were mobilized. The MARILYN retractor was placed with a Hicks retractor. The pericardium was opened and marsupialized. The aorta was palpated and was soft. A double concentric pursestring of 2-0 Ethibond was placed in the ascending aorta at the pericardial reflection and a single pursestring was placed in the right atrial appendage. Aortic and venous cannulae were inserted and secured by their pursestrings. The plane between the aorta and the pulmonary artery was developed. Cardiopulmonary bypass was instituted and the patient was systemically cooled. The heart was examined and the vessels to be bypassed were identified. A longitudinal slit was made in the pericardium anterior to the left phrenic nerve, relatively low and cephalad to allow for passage of the mammary first to the diagonal and then to the distal LAD without undue kinking. An aortic cross-clamp was applied and cardioplegia was administered through an aortic root needle. When arrest have been achieved, attention was turned to the right coronary system. A distal branch of the posterolateral system coming from the right was opened with a Chinik blade and Pierceton scissors and saphenous vein was anastomosed to it end-to-side with running 6-0 Prolene suture. The anastomosis was tested by flushing cold cardioplegia down the graft. The proximal PDA was then opened and a [id number]-[id number]-awrd anastomosis was constructed from that posterolateral graft to the PDA and similarly tested. The OM1 was opened and grafted end-to-side. The LAD diagonal system was again examined while it would be feasible to do a sequential grafting technique using the mammary to both first diagonal and the distal LAD. It would require the use of the very distal LAD where it was somewhat small and access to the high diagonal would be slightly problematic both in terms of the construction of the anastomosis itself and to the lie of the sequential graft. There appeared to be adequate usable saphenous vein to use as a separate graft to the diagonal. The diagonal was opened proximal to its bifurcation and grafted end-to-side with saphenous vein using running 6-0 Prolene. The distal LAD was then opened and the mammary was anastomosed to it with running 7-0 Prolene. It was tacked to the epicardium. The aortic cross-clamp was replaced with a partial occluding clamp and the aortotomy was made in the ascending aorta with a scalpel and punch incorporating the root needle site for the most proximal aortotomy. The sequential right coronary system graft was brought along the right side of the heart and anastomosed to that proximal aortotomy end-to-side. The diagonal and OM grafts were anastomosed to the middle and distal aortotomy respectively. The partial occluding clamp was removed. The vein grafts were de-aired and the bulldogs removed from them. The anastomoses were inspected for hemostasis and the proximal anastomoses were marked with small hemoclips. A posterior pericardial drain was brought out through a separate incision and secured with suture. Right atrial and right ventricular temporary epicardial pacing wires were placed. The patient was then easily from cardiopulmonary bypass. Aortic and venous cannulae were inserted and secured by their pursestrings. Protamine was administered. When hemostasis was adequate, an anterior mediastinal drain was placed. The pericardium was easily closed over with running Vicryl. The cut surface of the sternum was treated with platelet rich GPS and vancomycin paste. The sternum was reapproximated with #7 stainless steel wires. The fascia was closed. The soft tissues were irrigated and treated with platelet poor GPS. The fascia was closed over the wires with a running #1 Vicryl. Subcutaneous tissue was reapproximated with running 2-0 Vicryl. The skin was closed with a running 3-0 Vicryl subcuticular suture. The wounds were treated with Dermabond and dressed and the patient was taken to the intensive care unit in stable condition. Job ID: [id number]
[2020-08-28] MEDS: Docusate 100 MG CAP PO SCH (20:11)
[2020-08-28] MEDS: Famotidine/PF 20 mg/2ml Vial SLOW IVP SCH (20:11)
[2020-08-28] MEDS: Atorvastatin Calcium 40 MG TAB PO SCH (20:11)
[2020-08-28 20:31] LABS: Hemoglobin 10.1 g/dL (14.0-18.0); Platelet Count 127 thou/uL (130-400)
[2020-08-28] MEDS: HYDROcodone/Acetaminophen 5/325 mg Tablet PO PRN (23:37)
[2020-08-29 04:44] LABS: #Lymphocytes 1.4 thou/uL (1.20-3.40); #Monocytes 0.7 thou/uL (0.11-0.59); #Neutrophils 7.1 thou/uL (1.40-6.50); %Basophils 0.2 % (0.0-1.0); %Eosinophils 0.2 % (0.0-10.0); %Lymphocytes 15.1 % (21.0-51.0); %Monocytes 7.3 % (0.0-10.0); %Neutrophils 77.3 % (42.0-75.0); Hemoglobin 9.3 g/dL (14.0-18.0); Mean Corpuscular HGB CONC 34.2 g/dL (32.0-36.0); Mean Corpuscular Hemoglobin 32.4 pg (27.0-31.0); Mean Corpuscular Volume 94.8 fL (78.0-98.0); Mean Platelet Volume 8.8 fL (7.4-10.4); Platelet Count 126 thou/uL (130-400); RBC Distribution Width 13.3 % (11.5-14.5); Red Blood Cell (RBC) Count 2.88 mill/uL (4.70-6.10); White Blood Cell (WBC) Count 9.2 thou/uL (4.8-10.8)
[2020-08-29 05:08] LABS: Anion Gap 11 mmol/L (10-20); BUN (Urea Nitrogen) 18 mg/dL (8.4-25.7); Calc. Creatinine Clearance 72 mL/min (70-130); Calcium 7.7 mg/dL (7.8-10.44); Carbon Dioxide 22 mmol/L (23-31); Chloride 112 mmol/L (98-107); Glucose 106 mg/dL (80-115); Potassium 4.4 mmol/L (3.5-5.1); Sodium 141 mmol/L (136-145)
--- NOTE | 2020-08-29 09:30 | RAD ---
PORTABLE CHEST: INDICATION: Postop sternotomy. FINDINGS/IMPRESSION: Postop sternotomy changes. Small effusions. Left basilar atelectasis and/or infiltrate. Upper lung zones are clear. POS: AGW
[2020-08-29] MEDS: Docusate 100 MG CAP PO SCH ×2 (09:49→20:57)
[2020-08-29] MEDS: Famotidine/PF 20 mg/2ml Vial SLOW IVP SCH (09:49)
[2020-08-29] MEDS: HYDROcodone/Acetaminophen 5/325 mg Tablet PO PRN (09:52)
[2020-08-29] MEDS ORDERED: Nitroglycerin 0.4 MG TAB (25 Tab Bottle) SL PRN (10:59)
[2020-08-29] MEDS ORDERED: Bisacodyl 5 MG TAB PO PRN (10:59)
[2020-08-29] MEDS ORDERED: Zolpidem Tartrate 5 MG TAB PO PRN (10:59)
[2020-08-29] MEDS ORDERED: Mag-Al 1200 mg/1200 mg/30 ML UDCUP PO PRN (10:59)
[2020-08-29] MEDS ORDERED: Bisacodyl 10 MG SUPP PR PRN (10:59)
[2020-08-29] MEDS ORDERED: Mineral Oil ENEMA PR PRN (10:59)
[2020-08-29] MEDS ORDERED: diphenhydrAMINE 25 MG CAP PO PRN (10:59)
[2020-08-29] MEDS ORDERED: Guaifenesin DM 100-10/5 ML UDCUP PO PRN (10:59)
[2020-08-29] MEDS ORDERED: Furosemide 40 MG TAB PO SCH ×2 (11:00→11:15)
[2020-08-29] MEDS ORDERED: Clopidogrel Bisulfate 75 MG TAB PO SCH (11:15)
[2020-08-29] MEDS ORDERED: cloNIDine 0.1 MG TAB PO SCH (11:30)
[2020-08-29] MEDS ORDERED: Metoprolol Tartrate 25 MG TAB PO SCH (11:30)
[2020-08-29] MEDS: cloNIDine 0.1 MG TAB PO SCH ×2 (11:33→20:57)
--- NOTE | 2020-08-29 15:06 | PDOC.HOSPP ---
- Subjective Encounter Date: 08/29/20 Encounter Time: 11:30 Subjective: Patient still has a chest tube. His pressures on the low normal. He had his p.o. intake. Physical therapy consult placed. He is stable to be transferred to the telemetry. - Objective Vital Signs & Weight: Vital Signs (12 hours) Temp Pulse Pulse Pulse Resp BP BP 08/29/20 13:38 119 H 126 H 128/81 08/29/20 11:33 146/84 H 08/29/20 11:00 98.0 F 08/29/20 08:00 08/29/20 07:00 98.1 F 08/29/20 06:00 120 H 14 117/72 08/29/20 05:30 114 H 17 131/87 08/29/20 05:00 110 H 16 122/91 H 08/29/20 04:30 108 H 20 161/81 H 08/29/20 04:00 98.0 F 104 H 20 110/81 08/29/20 03:30 105 H 11 L 106/80 BP Pulse Ox Pulse Ox Pulse Ox 08/29/20 13:38 97/70 95 95 08/29/20 11:33 08/29/20 11:00 08/29/20 08:00 98 08/29/20 07:00 08/29/20 06:00 08/29/20 05:30 08/29/20 05:00 08/29/20 04:30 08/29/20 04:00 08/29/20 03:30 Weight Weight 171 lb 4.787 oz Most Recent Monitor Data Heart Rate from ECG 93 NIBP 108/66 NIBP BP-Mean 80 Respiration from ECG 13 SpO2 97 I&O: 08/28/20 08/29/20 08/30/20 06:59 06:59 06:59 Intake Total 2326 2235.1 1005.5 Output Total 2300 1650 360 Balance 26 585.1 645.5 Result Diagrams: 08/29/20 04:20 08/29/20 04:20 Additional Labs: Accuchecks 08/29/20 08/29/20 08/29/20 10:04 09:09 08:16 POC Glucose 122 H 130 H 137 H 08/29/20 08/29/20 08/28/20 06:22 02:06 22:14 POC Glucose 123 H 103 H 97 08/28/20 08/28/20 08/28/20 20:10 19:13 17:29 POC Glucose 148 H 204 H 174 H Hospitalist ROS - Medication Medications: Active Medications Generic Name Dose Route Start Last Admin Trade Name Freq PRN Reason Stop Dose Admin Hydrocodone Bitart/Acetaminophen 2 tab 08/28/20 12:45 08/29/20 09:52 Hydrocodone/Acetaminophen 5/325 Mg Tablet PO 2 tab Q4H PRN Administration Severe Pain (7-10) Atorvastatin Calcium 40 mg 08/28/20 21:00 08/28/20 20:11 Atorvastatin Calcium 40 Mg Tab PO 40 mg HS BAR Administration Docusate Sodium 100 mg 08/28/20 21:00 08/29/20 09:49 Docusate 100 Mg Cap PO 100 mg BID BAR Administration Hydralazine HCl 10 mg 08/28/20 12:45 08/28/20 20:44 Hydralazine 20 Mg/Ml Vial SLOW IVP 10 mg Q6H PRN Administration To Maintain SBP< 140mmHG Ondansetron HCl 4 mg 08/28/20 12:45 08/28/20 13:59 Ondansetron Pf 4 Mg/2 Ml Vial IVP 4 mg Q6H PRN Administration Nausea/Vomiting - Exam General Appearance: NAD, awake alert Eye: PERRL ENT: normocephalic atraumatic Neck: supple Heart: RRR Heart - other findings: Chest tube in place. Respiratory: CTAB, normal chest expansion Gastrointestinal: soft, normal bowel sounds Neurological: no focal deficits Psychiatric: A&O x 3 Hosp A/P - Plan 69-year-old male with past medical history of type 2 diabetes mellitus, hypertension, hyperlipidemia, peripheral vascular disease presents with 1 week history of epigastric pain associated with hiccups found to have elevated troponin and NSTEMI. NSTEMI Left main coronary disease with LAD occlusion Right bundle branch block Peripheral vascular disease Coronary artery disease -Status post CABG -x5 w.. L. internal mammary. -Chest tube ASA, statin, pantoprazole, Lopressor and Plavix. Hyperlipidemia with LDL of 113 -He is on Lipitor Acute kidney injury BUN/CR elevated to 54/2.03. Patient has no history of chronic kidney disease. Patient received 1 L of normal saline in emergency room and additional IVF. Improved Type 2 diabetes mellitus, uncontrolled A1c of 10 point Patient hyperglycemic on presentation to over 400 on [id number] testing. -We will follow the post CABG protocol for tight blood glucose control starting from blood glucose level of 120 -metformin and glimepiride regularly. - -On hold Peripheral vascular disease History of peripheral vascular disease status post bilateral toe amputations. We will continue home aspirin and Plavix. Hypertension -On Lopressor Full code Transfer to telemetry.
--- NOTE | 2020-08-29 15:20 | EKG ---
Test Reason : Blood Pressure : / mmHG Vent. Rate : 092 BPM Atrial Rate : 092 BPM P-R Int : 138 ms QRS Dur : 114 ms QT Int : 386 ms P-R-T Axes : 025 041 056 degrees QTc Int : 477 ms Normal sinus rhythm Right bundle branch block Septal infarct , age undetermined Abnormal ECG Confirmed by HUSSEIN LAUREN ([id number]), technical editor CHUNG BARBOSA ([id number] on 08/29/2020 3:19:40 PM Referred By: Confirmed By:HUSSEIN Jordan
[2020-08-29] MEDS: Insulin Regular 300 UNITS/3 ML VIAL SC PRN ×2 (16:54→21:02)
[2020-08-29] MEDS: Metoprolol Tartrate 25 MG TAB PO SCH (20:58)
[2020-08-29] MEDS: Atorvastatin Calcium 40 MG TAB PO SCH (20:59)
[2020-08-29] MEDS: Sodium Chloride 0.9% 1,000 ML IV SCH (21:22)
[2020-08-30] MEDS: Insulin Regular 300 UNITS/3 ML VIAL SC PRN ×3 (06:48→17:47)
[2020-08-30 08:02] LABS: #Lymphocytes 1.1 thou/uL (1.20-3.40); #Monocytes 0.6 thou/uL (0.11-0.59); #Neutrophils 7.2 thou/uL (1.40-6.50); %Basophils 0.2 % (0.0-1.0); %Eosinophils 0.2 % (0.0-10.0); %Lymphocytes 12.1 % (21.0-51.0); %Monocytes 6.7 % (0.0-10.0); %Neutrophils 80.7 % (42.0-75.0); Hemoglobin 8.5 g/dL (14.0-18.0); Mean Corpuscular HGB CONC 33.8 g/dL (32.0-36.0); Mean Corpuscular Hemoglobin 31.7 pg (27.0-31.0); Mean Corpuscular Volume 93.9 fL (78.0-98.0); Mean Platelet Volume 8.8 fL (7.4-10.4); Platelet Count 149 thou/uL (130-400); RBC Distribution Width 13.2 % (11.5-14.5); Red Blood Cell (RBC) Count 2.67 mill/uL (4.70-6.10)
[2020-08-30 08:22] LABS: Anion Gap 12 mmol/L (10-20); BUN (Urea Nitrogen) 24 mg/dL (8.4-25.7); Calc. Creatinine Clearance 59 mL/min (70-130); Calcium 7.7 mg/dL (7.8-10.44); Carbon Dioxide 24 mmol/L (23-31); Chloride 104 mmol/L (98-107); Glucose 309 mg/dL (80-115); Potassium 4.2 mmol/L (3.5-5.1); Sodium 136 mmol/L (136-145)
[2020-08-30] MEDS: Clopidogrel Bisulfate 75 MG TAB PO SCH (08:32)
[2020-08-30] MEDS: Furosemide 40 MG TAB PO SCH (08:32)
[2020-08-30] MEDS: Metoprolol Tartrate 25 MG TAB PO SCH (08:32)
[2020-08-30] MEDS: cloNIDine 0.1 MG TAB PO SCH (08:33)
[2020-08-30] MEDS: Docusate 100 MG CAP PO SCH ×2 (08:33→21:41)
--- NOTE | 2020-08-30 11:22 | PDOC.HOSPP ---
- Subjective Encounter Date: 08/30/20 Encounter Time: 10:20 Subjective: Patient is sitting in the chair. He has still has chest tube. Physical therapy has seen him this morning. He is ambulating. He is not complaining of chest pain or shortness of breath. He is somewhat tachycardic. Blood pressure lately improved and he is normotensive currently. - Objective Vital Signs & Weight: Vital Signs (12 hours) Temp Pulse Pulse Pulse Resp BP BP 08/30/20 09:04 104 H 99 137/70 115/64 08/30/20 08:22 99.3 F 106 H 18 08/30/20 04:16 08/30/20 02:45 98.7 F 99 17 08/30/20 00:00 98.8 F BP Pulse Ox 08/30/20 09:04 08/30/20 08:22 135/72 96 08/30/20 04:16 97 08/30/20 02:45 152/70 H 95 08/30/20 00:00 Weight Weight 173 lb 8 oz Most Recent Monitor Data Heart Rate from ECG 100 NIBP 122/72 NIBP BP-Mean 88 Respiration from ECG 19 SpO2 97 I&O: 08/29/20 08/30/20 08/31/20 06:59 06:59 06:59 Intake Total 2235.1 1265.5 Output Total 1650 1100 Balance 585.1 165.5 Result Diagrams: 08/30/20 07:49 08/30/20 07:49 Additional Labs: Accuchecks 08/30/20 08/30/20 08/29/20 10:51 06:35 21:01 POC Glucose 333 H 315 H 306 H 08/29/20 16:29 POC Glucose 229 H Hospitalist ROS - Medication Medications: Active Medications Generic Name Dose Route Start Last Admin Trade Name Freq PRN Reason Stop Dose Admin Hydrocodone Bitart/Acetaminophen 2 tab 08/28/20 12:45 08/29/20 09:52 Hydrocodone/Acetaminophen 5/325 Mg Tablet PO 2 tab Q4H PRN Administration Severe Pain (7-10) Atorvastatin Calcium 40 mg 08/28/20 21:00 08/29/20 20:59 Atorvastatin Calcium 40 Mg Tab PO 40 mg HS BAR Administration Clonidine 0.1 mg 08/29/20 21:00 08/30/20 08:33 Clonidine 0.1 Mg Tab PO 0.1 mg BID BAR Administration Clopidogrel Bisulfate 75 mg 08/30/20 09:00 08/30/20 08:32 Clopidogrel Bisulfate 75 Mg Tab PO 75 mg DAILY BAR Administration Docusate Sodium 100 mg 08/28/20 21:00 08/30/20 08:33 Docusate 100 Mg Cap PO 100 mg BID BAR Administration Furosemide 40 mg 08/30/20 09:00 08/30/20 08:32 Furosemide 40 Mg Tab PO 40 mg DAILY BAR Administration Hydralazine HCl 10 mg 08/28/20 12:45 08/28/20 20:44 Hydralazine 20 Mg/Ml Vial SLOW IVP 10 mg Q6H PRN Administration To Maintain SBP< 140mmHG Insulin Human Regular 0 units 08/29/20 11:30 08/30/20 06:48 Insulin Regular 300 Units/3 Ml Vial SC 8 unit .MODERATE SLIDING SC PRN Administration MODERATE SLIDING SCALE Protocol Metoprolol Tartrate 25 mg 08/29/20 21:00 08/30/20 08:32 Metoprolol Tartrate 25 Mg Tab PO 25 mg BID BAR Administration Ondansetron HCl 4 mg 08/28/20 12:45 08/28/20 13:59 Ondansetron Pf 4 Mg/2 Ml Vial IVP 4 mg Q6H PRN Administration Nausea/Vomiting Sodium Chloride 10 ml 08/29/20 21:00 08/30/20 08:33 Flush - Normal Saline 10 Ml Syringe IVF 10 ml Q12HR BAR Administration - Exam General Appearance: NAD, awake alert General - other findings: Chest tube Eye: PERRL ENT: normocephalic atraumatic Neck: supple Heart: RRR, normal peripheral pulses Respiratory: CTAB, normal chest expansion Gastrointestinal: soft, normal bowel sounds Neurological: no focal deficits Psychiatric: A&O x 3 Hosp A/P - Plan 69-year-old male with past medical history of type 2 diabetes mellitus, hypertension, hyperlipidemia, peripheral vascular disease presents with 1 week history of epigastric pain associated with hiccups found to have elevated troponin and NSTEMI. NSTEMI Left main coronary disease with LAD occlusion Right bundle branch block Peripheral vascular disease Coronary artery disease -Status post CABG -x5 w.. L. internal mammary. -Chest tube ASA, statin, pantoprazole, Lopressor and Plavix. Hyperlipidemia with LDL of 113 -He is on Lipitor Acute kidney injury BUN/CR elevated to 54/2.03. Patient has no history of chronic kidney disease. Patient received 1 L of normal saline in emergency room and additional IVF. Improved Type 2 diabetes mellitus, uncontrolled A1c of 10 point Patient hyperglycemic on presentation to over 400 on [id number] testing. -We will follow the post CABG protocol for tight blood glucose control starting from blood glucose level of 120 -metformin and glimepiride regularly. - -On hold Peripheral vascular disease History of peripheral vascular disease status post bilateral toe amputations. We will continue home aspirin and Plavix. Hypertension -On Lopressor Full code Continue with physical therapy. Follow-up with vascular surgery recommendations. Disposition ---cardiac rehab versus home health
--- NOTE | 2020-08-30 12:22 | RAD ---
PORTABLE CHEST: HISTORY: Post CABG procedure. COMPARISON: 08/29/2020. FINDINGS: Postop sternotomy changes. Linear atelectasis in the right mid lung. Streaky atelectasis in the lef t lower lung. Lungs appear well aerated. No vascular congestion or edema. Mild cardiomegaly. IMPRESSION: Some atelectatic changes as described. POS: AGW
[2020-08-30] MEDS: metFORMIN 500 MG TAB PO SCH (17:47)
[2020-08-30] MEDS ORDERED: metFORMIN 500 MG TAB PO SCH (21:00)
[2020-08-30] MEDS ORDERED: Insulin Regular 300 UNITS/3 ML VIAL SC PRN (21:09)
[2020-08-30] MEDS: cloNIDine 0.2 MG TAB PO SCH (21:40)
[2020-08-30] MEDS: Metoprolol Tartrate 50 MG TAB PO SCH (21:41)
[2020-08-30] MEDS: Atorvastatin Calcium 40 MG TAB PO SCH (21:41)
[2020-08-31 04:58] LABS: #Eosinphils 0.1 thou/uL (0.0-0.7); #Lymphocytes 1.7 thou/uL (1.20-3.40); #Monocytes 0.5 thou/uL (0.11-0.59); #Neutrophils 6.7 thou/uL (1.40-6.50); %Basophils 0.1 % (0.0-1.0); %Eosinophils 1.3 % (0.0-10.0); %Lymphocytes 18.7 % (21.0-51.0); %Monocytes 5.3 % (0.0-10.0); %Neutrophils 74.6 % (42.0-75.0); Mean Corpuscular HGB CONC 34.6 g/dL (32.0-36.0); Mean Corpuscular Hemoglobin 32.4 pg (27.0-31.0); Mean Corpuscular Volume 93.6 fL (78.0-98.0); Mean Platelet Volume 8.9 fL (7.4-10.4); Platelet Count 158 thou/uL (130-400); RBC Distribution Width 13.2 % (11.5-14.5); Red Blood Cell (RBC) Count 2.47 mill/uL (4.70-6.10); White Blood Cell (WBC) Count 8.9 thou/uL (4.8-10.8)
[2020-08-31 05:35] LABS: Anion Gap 13 mmol/L (10-20); BUN (Urea Nitrogen) 31 mg/dL (8.4-25.7); Calc. Creatinine Clearance 59 mL/min (70-130); Calcium 7.6 mg/dL (7.8-10.44); Carbon Dioxide 25 mmol/L (23-31); Chloride 104 mmol/L (98-107); Glucose 165 mg/dL (80-115); Potassium 3.8 mmol/L (3.5-5.1); Sodium 138 mmol/L (136-145)
[2020-08-31] MEDS ORDERED: Glimepiride 2 MG TAB PO SCH (08:00)
[2020-08-31] MEDS: Metoprolol Tartrate 50 MG TAB PO SCH (08:05)
[2020-08-31] MEDS: Metolazone 5 MG TAB PO SCH (08:05)
[2020-08-31] MEDS: Iron Polysaccharides Complex 150 MG CAP PO SCH ×2 (08:05→17:23)
[2020-08-31] MEDS: metFORMIN 500 MG TAB PO SCH ×2 (08:05→17:23)
[2020-08-31] MEDS: Clopidogrel Bisulfate 75 MG TAB PO SCH (08:06)
[2020-08-31] MEDS: Docusate 100 MG CAP PO SCH ×2 (08:06→22:03)
[2020-08-31] MEDS: cloNIDine 0.2 MG TAB PO SCH (08:06)
[2020-08-31] MEDS: Furosemide 40 MG TAB PO SCH (08:06)
--- NOTE | 2020-08-31 08:33 | RAD ---
PORTABLE CHEST: HISTORY: Post-CABG procedure. COMPARISON: 08/30/2020. FINDINGS: Central line unchanged. Mild cardiomegaly with postop sternotomy change. Linear atelectatic changes in the left base and the right mid lung again noted. There may be small bilateral effusions. Vascu lar markings upper normal. IMPRESSION: No acute interval change. POS: AGW
[2020-08-31] MEDS: Insulin Regular 300 UNITS/3 ML VIAL SC PRN ×2 (11:12→17:24)
--- NOTE | 2020-08-31 17:40 | PDOC.HOSPP ---
- Subjective Encounter Date: 08/31/20 Encounter Time: 17:38 Subjective: Patient was seen and examined in bed. Patient is status post CABG and is otherwise generally stable. He has some mild chest pain. No cough or shortness of breath. His chest drainage was removed earlier this morning - Objective Vital Signs & Weight: Vital Signs (12 hours) Temp Pulse Pulse Pulse Resp BP BP 08/31/20 15:07 97.8 F 69 16 08/31/20 11:20 98.6 F 77 16 08/31/20 09:01 82 77 95/60 96/50 L 08/31/20 08:01 98.7 F 76 16 BP Pulse Ox 08/31/20 15:07 96/54 L 96 08/31/20 11:20 119/54 L 95 08/31/20 09:01 08/31/20 08:01 113/66 97 Weight Weight 179 lb 12.8 oz Most Recent Monitor Data Heart Rate from ECG 100 NIBP 122/72 NIBP BP-Mean 88 Respiration from ECG 19 SpO2 97 I&O: 08/30/20 08/31/20 09/01/20 06:59 06:59 06:59 Intake Total 1265.5 1320 1100 Output Total 1100 1770 575 Balance 165.5 -450 525 Result Diagrams: 08/31/20 04:05 08/31/20 04:05 Additional Labs: Accuchecks 08/31/20 08/31/20 08/31/20 17:01 10:55 06:04 POC Glucose 294 H 326 H 172 H 08/30/20 08/29/20 08/29/20 20:06 07:21 04:16 POC Glucose 205 H 148 H 107 H 08/29/20 08/28/20 08/28/20 00:15 23:03 21:07 POC Glucose 103 H 96 131 H Hospitalist ROS - Medication Medications: Active Medications Generic Name Dose Route Start Last Admin Trade Name Freq PRN Reason Stop Dose Admin Hydrocodone Bitart/Acetaminophen 1 tab 08/28/20 12:45 08/30/20 15:30 Hydrocodone/Acetaminophen 5/325 Mg Tablet PO 1 tab Q4H PRN Administration Moderate Pain (4-6) Hydrocodone Bitart/Acetaminophen 2 tab 08/28/20 12:45 08/29/20 09:52 Hydrocodone/Acetaminophen 5/325 Mg Tablet PO 2 tab Q4H PRN Administration Severe Pain (7-10) Atorvastatin Calcium 40 mg 08/28/20 21:00 08/30/20 21:41 Atorvastatin Calcium 40 Mg Tab PO 40 mg HS BAR Administration Clonidine 0.2 mg 08/30/20 21:00 08/31/20 08:06 Clonidine 0.2 Mg Tab PO 0.2 mg BID BAR Administration Clopidogrel Bisulfate 75 mg 08/30/20 09:00 08/31/20 08:06 Clopidogrel Bisulfate 75 Mg Tab PO 75 mg DAILY BAR Administration Docusate Sodium 100 mg 08/28/20 21:00 08/31/20 08:06 Docusate 100 Mg Cap PO 100 mg BID BAR Administration Furosemide 40 mg 08/30/20 09:00 08/31/20 08:06 Furosemide 40 Mg Tab PO 40 mg DAILY BAR Administration Glimepiride 2 mg 08/31/20 08:00 08/31/20 08:05 Glimepiride 2 Mg Tab PO 2 mg QAM-WM BAR Administration Hydralazine HCl 10 mg 08/28/20 12:45 08/28/20 20:44 Hydralazine 20 Mg/Ml Vial SLOW IVP 10 mg Q6H PRN Administration To Maintain SBP< 140mmHG Insulin Human Regular 0 units 08/29/20 11:30 08/31/20 17:24 Insulin Regular 300 Units/3 Ml Vial SC 6 unit .MODERATE SLIDING SC PRN Administration MODERATE SLIDING SCALE Protocol Insulin Human Regular 0 units 08/30/20 21:09 08/30/20 21:39 Insulin Regular 300 Units/3 Ml Vial SC 2 unit .BEDTIME SLIDING SC PRN Administration Bedtime Correctional Scale Metformin HCl 500 mg 08/30/20 17:00 08/31/20 17:23 Metformin 500 Mg Tab PO 500 mg BID-WM BAR Administration Metolazone 10 mg 08/31/20 08:30 08/31/20 08:05 Metolazone 5 Mg Tab PO 09/01/20 08:31 10 mg 0830 BAR Administration Metoprolol Tartrate 50 mg 08/30/20 21:00 08/31/20 08:05 Metoprolol Tartrate 50 Mg Tab PO 50 mg BID BAR Administration Ondansetron HCl 4 mg 08/28/20 12:45 08/28/20 13:59 Ondansetron Pf 4 Mg/2 Ml Vial IVP 4 mg Q6H PRN Administration Nausea/Vomiting Polysaccharide Iron Complex 150 mg 08/31/20 08:00 08/31/20 17:23 Iron Polysaccharides Complex 150 Mg Cap PO 150 mg BID-WM BAR Administration Sodium Chloride 10 ml 08/29/20 21:00 08/31/20 08:06 Flush - Normal Saline 10 Ml Syringe IVF 10 ml Q12HR BAR Administration - Exam General Appearance: awake alert Heart: RRR, no murmur, no gallops, no rubs Respiratory: CTAB, no wheezes, no rales, no ronchi Gastrointestinal: soft, non-tender, non-distended, normal bowel sounds Extremities: no cyanosis, no clubbing, no edema Neurological: cranial nerve grossly intact, no focal deficits Psychiatric: normal affect, A&O x 3 Hosp A/P - Plan This is a 69-year-old male patient History of type 2 diabetes hypertension hyperlipidemia who is currently post CABG on account of NSTEMI. NSTEMI status post CABG Patient currently generally stable Chest tube was removed. We will continue monitoring on telemetry Appreciate cardiology input. [place] Creatinine 1.4 today from 1.3 otherwise generally stable. Received IV fluids earlier We will continue monitoring BMP Diabetes mellitus A1c 10 Continue insulin and correctional dosing. Holding Metformin and glimepiride Monitor glucose. Peripheral artery disease Continue aspirin and statins. Bilateral toe amputations Resection of PAD. Next Hypertension Continue blood pressure medications We will statusfull code VT prophylaxis
[2020-08-31] MEDS: Atorvastatin Calcium 40 MG TAB PO SCH (22:03)
[2020-09-01] MEDS: cloNIDine 0.2 MG TAB PO SCH ×3 (00:45→09:20)
[2020-09-01] MEDS: Metoprolol Tartrate 50 MG TAB PO SCH ×2 (00:46→08:27)
[2020-09-01 04:37] LABS: #Eosinphils 0.2 thou/uL (0.0-0.7); #Lymphocytes 2.2 thou/uL (1.20-3.40); #Monocytes 0.5 thou/uL (0.11-0.59); #Neutrophils 4.8 thou/uL (1.40-6.50); %Basophils 0.5 % (0.0-1.0); %Eosinophils 2.3 % (0.0-10.0); %Lymphocytes 28.8 % (21.0-51.0); %Monocytes 6.5 % (0.0-10.0); %Neutrophils 61.9 % (42.0-75.0); Hemoglobin 8.3 g/dL (14.0-18.0); Mean Corpuscular HGB CONC 34.2 g/dL (32.0-36.0); Mean Corpuscular Hemoglobin 32.1 pg (27.0-31.0); Mean Corpuscular Volume 93.8 fL (78.0-98.0); Mean Platelet Volume 8.4 fL (7.4-10.4); Platelet Count 198 thou/uL (130-400); RBC Distribution Width 13.2 % (11.5-14.5); Red Blood Cell (RBC) Count 2.57 mill/uL (4.70-6.10); White Blood Cell (WBC) Count 7.7 thou/uL (4.8-10.8)
[2020-09-01 04:56] LABS: Anion Gap 13 mmol/L (10-20); BUN (Urea Nitrogen) 34 mg/dL (8.4-25.7); Calc. Creatinine Clearance 64 mL/min (70-130); Carbon Dioxide 27 mmol/L (23-31); Chloride 100 mmol/L (98-107); Glucose 138 mg/dL (80-115); Potassium 3.8 mmol/L (3.5-5.1); Sodium 136 mmol/L (136-145)
[2020-09-01] MEDS: Clopidogrel Bisulfate 75 MG TAB PO SCH (08:27)
[2020-09-01] MEDS: Metolazone 5 MG TAB PO SCH (08:27)
[2020-09-01] MEDS: Iron Polysaccharides Complex 150 MG CAP PO SCH (08:27)
[2020-09-01] MEDS: Docusate 100 MG CAP PO SCH (08:27)
[2020-09-01] MEDS: metFORMIN 500 MG TAB PO SCH (08:28)
[2020-09-01] MEDS: Furosemide 40 MG TAB PO SCH (08:28)
[2020-09-01] MEDS: Insulin Regular 300 UNITS/3 ML VIAL SC PRN (11:42)
[2020-09-01 11:50] VITALS: TEMP 98.5
--- NOTE | 2020-09-01 12:20 | DIS ---
DATE OF ADMISSION: 08/26/2020 DATE OF DISCHARGE: 09/01/2020 PRINCIPAL DIAGNOSIS: Left main coronary artery disease with non-ST elevation myocardial infarction. SECONDARY DIAGNOSES: Peripheral vascular disease, chronic renal insufficiency, diabetes mellitus, and hypertension. PROCEDURES PERFORMED: 1. Cardiac catheterization on 08/27/2020. 2. Coronary artery bypass grafting x5 with left internal mammary artery to the distal LAD, separate reverse greater saphenous vein graft from the aorta to the first diagonal, from the aorta to the first obtuse marginal, and sequential reverse greater saphenous vein graft from aorta to the PDA, to the posterolateral branch of the right coronary artery, 08/28/2020. HISTORY OF PRESENT ILLNESS AND HOSPITAL COURSE: The patient is a 69-year-old, hypertensive man with diabetes, who has previously undergone percutaneous revascularization procedures for limb salvage bilaterally when he presented with gangrenous changes involving toes. He recently developed epigastric pain associated with hiccups, and on the day of presentation, he had a severe protracted episode associated with shortness of breath. He had a right bundle branch block on his EKG and his troponins had a rise and fall, consistent with a non-ST elevation AK. His cardiac catheterization demonstrated significant distal left main lesion extending into the ostium of the LAD and causing a subtotal occlusion of the ostium of the circumflex. His LAD occluded at the level of the first septal adjunct teacher and a high diagonal isolated between the left main and the LAD occlusion, had a proximal stenosis in it. He had more modest disease in his right coronary system. Echocardiography suggested preserved left ventricular systolic function. Ventriculography was deferred because of his baseline mild renal insufficiency. He was hydrated and kept on heparin overnight following his cardiac catheterization and his IV fluids were run a little bit faster than typical following his coronary artery bypass procedure the following day. He had uneventful postoperative recovery and he responded well to diuretics to mobilize the edema fluid. His renal function stayed at about baseline. His oral hypoglycemics were added back as his level of diet increased. His pacing wires and chest tubes were removed on postoperative day 3, and he was getting around well by postoperative day 4. He is being sent home now with Lopressor 50 mg b.i.d. in addition to his home dose of clonidine 0.2 mg b.i.d. He is to continue his pravastatin and home regimen of metformin and glimepiride. He is back on his preoperative regimen of baby aspirin and Plavix daily, and I have written a prescription for Vicodin as needed for pain. Job ID: [id number]
[2020-09-01 13:12] VITALS: BP 137/64
--- NOTE | 2020-09-01 19:33 | PDOC.HOSPP ---
- Subjective Encounter Date: 09/01/20 Encounter Time: 08:00 Subjective: Patient was seen and examined in bed. He feels generally better. Denied any chest pain or shortness of breath. No significant events overnight - Objective Vital Signs & Weight: Vital Signs (12 hours) Temp Pulse Pulse Pulse Resp BP BP 09/01/20 11:45 98.5 F 83 16 09/01/20 09:21 99 81 137/64 118/59 L BP Pulse Ox 09/01/20 11:45 140/63 100 09/01/20 09:21 Weight Weight 172 lb 9.6 oz Most Recent Monitor Data Heart Rate from ECG 100 NIBP 122/72 NIBP BP-Mean 88 Respiration from ECG 19 SpO2 97 I&O: 08/31/20 09/01/20 09/02/20 06:59 06:59 06:59 Intake Total 1320 1550 Output Total 1770 1975 Balance -450 -425 Result Diagrams: 09/01/20 04:22 09/01/20 04:22 Additional Labs: Accuchecks 09/01/20 09/01/20 08/31/20 11:37 05:56 20:30 POC Glucose 284 H 128 H 179 H - Exam General Appearance: awake alert Heart: RRR, no murmur, no gallops, no rubs Heart - other findings: Sternotomy wound clean Respiratory: CTAB, no wheezes, no rales, no ronchi Gastrointestinal: non-tender, non-distended, normal bowel sounds Extremities: no cyanosis, no clubbing, no edema Neurological: cranial nerve grossly intact, no focal deficits Psychiatric: normal affect, normal behavior, A&O x 3 Hosp A/P - Plan This is a 69-year-old male patient History of type 2 diabetes hypertension hyperlipidemia who is currently post CABG on account of NSTEMI. He is generally stable and due to be discharged this morning by cardiovascular surgery NSTEMI status post CABG Patient currently generally stable Chest tube was removed. We will continue monitoring on telemetry Appreciate cardiology input. [place] Creatinine 1.4 today from 1.3 otherwise generally stable. Received IV fluids earlier We will continue monitoring BMP Diabetes mellitus A1c 10 Continue insulin and correctional dosing. Holding Metformin and glimepiride Monitor glucose. Peripheral artery disease Continue aspirin and statins. Bilateral toe amputations Resection of PAD. Next Hypertension Continue blood pressure medications We will statusfull code VT prophylaxis Dispositiondischarge today
== END 2020-09-01 14:55 | disposition home or self-care (01) | DRG 234 ==
LOC: ERS 11:13 → ERHOLD 12:59 → 2NO 17:44 → CCU 08-27 13:00 → 2NO 08-30 02:53
PROVIDERS: ADMIT Internal Medicine; ATTEND Internal Medicine
PROC: B2111ZZ Fluoroscopy of Multiple Coronary Arteries using Low Osmolar Contrast (ICD-10-PCS; 2020-08-27)
PROC: 4A023N7 Measurement of Cardiac Sampling and Pressure, Left Heart, Percutaneous Approach (ICD-10-PCS; 2020-08-27)
PROC: 02100Z9 Bypass Coronary Artery, One Artery from Left Internal Mammary, Open Approach (ICD-10-PCS; principal; 2020-08-28)
PROC: 021309W Bypass Coronary Artery, Four or More Arteries from Aorta with Autologous Venous Tissue, Open Approach (ICD-10-PCS; 2020-08-28)
PROC: 06BQ4ZZ Excision of Left Saphenous Vein, Percutaneous Endoscopic Approach (ICD-10-PCS; 2020-08-28)
PROC: 03JY0ZZ Inspection of Upper Artery, Open Approach (ICD-10-PCS; 2020-08-28)
PROC: 5A1221Z Performance of Cardiac Output, Continuous (ICD-10-PCS; 2020-08-28)
PROC: 30233N1 Transfusion of Nonautologous Red Blood Cells into Peripheral Vein, Percutaneous Approach (ICD-10-PCS; 2020-08-28)
DX: I21.4 Non-ST elevation (NSTEMI) myocardial infarction (principal); N17.9 Acute kidney failure, unspecified; Z20.828 Contact with and (suspected) exposure to other viral communicable diseases; E78.5 Hyperlipidemia, unspecified; I45.10 Unspecified right bundle-branch block; I25.10 Atherosclerotic heart disease of native coronary artery without angina pectoris; E11.22 Type 2 diabetes mellitus with diabetic chronic kidney disease; I12.9 Hypertensive chronic kidney disease with stage 1 through stage 4 chronic kidney disease, or unspecified chronic kidney disease; E78.00 Pure hypercholesterolemia, unspecified; N18.9 Chronic kidney disease, unspecified; E11.65 Type 2 diabetes mellitus with hyperglycemia; E11.51 Type 2 diabetes mellitus with diabetic peripheral angiopathy without gangrene; Z79.82 Long term (current) use of aspirin; Z79.02 Long term (current) use of antithrombotics/antiplatelets; Z88.1 Allergy status to other antibiotic agents; Z89.422 Acquired absence of other left toe(s); Z89.421 Acquired absence of other right toe(s); Z79.84 Long term (current) use of oral hypoglycemic drugs
CPT/HCPCS: 36415; 36416; 36430; 71045; 76942; 78451; 80048; 80053; 80061; 82010; 82553; 82805; 83036; 84484; 85025; 85347; 85610; 85730; 86850; 86900; 86901; 87635; 93005; 93010; 93306; 93454; 93798; 94002; 94760; 97139; 99152; A9500; C9113; J0360; J0690; J1265; J1644; J1815; J2001; J2150; J2250; J2270; J2405; J2440; J2704; J2720; J3010; J3370; J3475; J3480; J3490; P9016; P9045; Q9967; S0017; S0028; U0003

== ENCOUNTER 2020-09-04 12:50 | Observation (INO) | payer MEDICARE ==
[2020-09-04 13:38] LABS: #Eosinphils 0.2 thou/uL (0.0-0.7); #Lymphocytes 1.6 thou/uL (1.20-3.40); #Monocytes 0.5 thou/uL (0.11-0.59); #Neutrophils 6.4 thou/uL (1.40-6.50); %Basophils 0.6 % (0.0-1.0); %Eosinophils 2.3 % (0.0-10.0); %Lymphocytes 18.1 % (21.0-51.0); %Monocytes 5.3 % (0.0-10.0); %Neutrophils 73.8 % (42.0-75.0); Mean Corpuscular HGB CONC 34.1 g/dL (32.0-36.0); Mean Corpuscular Hemoglobin 32.6 pg (27.0-31.0); Mean Corpuscular Volume 95.4 fL (78.0-98.0); Mean Platelet Volume 8.3 fL (7.4-10.4); Platelet Count 319 thou/uL (130-400); RBC Distribution Width 13.9 % (11.5-14.5); Red Blood Cell (RBC) Count 2.46 mill/uL (4.70-6.10); White Blood Cell (WBC) Count 8.7 thou/uL (4.8-10.8)
[2020-09-04 13:54] LABS: ALT (SGPT) 14 U/L (8-55); AST (SGOT) 14 U/L (5-34); Albumin 3.2 g/dL (3.4-4.8); Alkaline Phosphatase 55 U/L (40-110); Anion Gap 15 mmol/L (10-20); BUN (Urea Nitrogen) 44 mg/dL (8.4-25.7); Bilirubin, Total 0.3 mg/dL (0.2-1.2); CK (CPK) 45 U/L (30-200); Calc. Creatinine Clearance 0 mL/min (70-130); Calcium 8.3 mg/dL (7.8-10.44); Carbon Dioxide 29 mmol/L (23-31); Chloride 89 mmol/L (98-107); Globulin 2.7 g/dL (2.4-3.5); Glucose 331 mg/dL (80-115); Protein, Total 5.9 g/dL (5.8-8.1); Sodium 129 mmol/L (136-145)
--- NOTE | 2020-09-04 13:56 | RAD ---
Chest AP view INDICATION: Status post open-heart surgery with altered mental status COMPARISON: Prior exam dated August 31, 2020 FINDINGS: Lungs: . The perihilar interstitial prominence remains. Cardiac silhouette: Mild cardiac megaly stable. Pulmonary vasculature: Mild pulmonary vascular congestion persists Pleural spaces: There is small bilateral pleural effusions, slightly more pronounced than the prior exam. Upper abdomen: No abnormality seen. Osseous structures: No acute osseous abnormality. Additional findings: Left subclavian central venous catheter is been removed. Midline sternotomy jay nges are stable. IMPRESSION: Mild cardiomegaly and mild pulmonary vascular congestion and small bilateral pleural effusions may re flect component of mild CHF. Interval removal of the left subclavian central venous catheter. Stable post-CABG change.
[2020-09-04 14:14] LABS: CKMB 1.9 ng/mL (0-6.6)
[2020-09-04 14:32] LABS: Bacteria/HPF None Seen HPF (None Seen); Bilirubin Negative (Negative); Blood, Urine Negative (Negative); Clarity Clear (Clear); Glucose, Urine (Dipstick) 100 mg/dL (Negative); Ketone, Urine Negative (Negative); Leukocyte 75 Leu/uL (Negative); Nitrite Negative (Negative); Protein, Urine (Dipstick) 20 mg/dL (Neg-Trace); RBC/HPF 0-3 HPF (0-3); Specific Gravity, Urine 1.014 (1.002-1.036); Squamous Epithelial 0-3 HPF (0-3); Urobilinogen Normal mg/dL (Less than 2)
[2020-09-04 17:27] LABS: Troponin I 0.277 ng/mL (< 0.028)
--- NOTE | 2020-09-04 17:47 | PDOC.HHP ---
Hospitalist HPI - History of Present Illness High blood sugar History of Present Illness: Mr. Yoan So is a 69-year-old male with a past medical history of NSTEMI status post CABG on 08/28/2020, type 2 diabetes mellitus, hypertension, hyperlipidemia, peripheral vascular disease who presents to the emergency room for high blood sugar. Patient reports that his home health aide took his blood sugar and was elevated at 380 so she requested that he present to the emergency room. Patient reports that he feels completely fine and is asymptomatic. He reports he has been recovering well from his CABG with no complications. He is resting comfortably in bed. Patient denies chest pain, shortness of breath, abdominal pain. He denies changes in vision, weakness, numbness, paresthesias. He denies orthopnea or increased lower extremity swelling. In emergency room initial vital signs 120/68, 63, 18, 98% on room air. H/H 8.0/23.7. WBC 8.7. Sodium 129, potassium 4.0. Blood glucose 331. BUN/CR 44/2.47. Troponin 0 0.219. EKG showed normal sinus rhythm with no ischemic changes. Hospitalist ROS - Review of Systems Constitutional: denies: fever, chills, sweats, weakness, malaise, other Eyes: denies: pain, vision change, conjunctivae inflammation, eyelid inflammation, redness, other ENT: denies: ear pain, ear discharge, nose pain, nose discharge, nose congestion, mouth pain, mouth swelling, throat pain, throat swelling, other Respiratory: denies: cough, dry, shortness of breath, hemoptysis, SOB with excertion, pleuritic pain, sputum, wheezing, other Cardiovascular: denies: chest pain, palpitations, orthopnea, paroxysmal noc. dyspnea, edema, light headedness, other Gastrointestinal: denies: nausea, vomiting, abdominal pain, diarrhea, constipation, melena, hematochezia, other Genitourinary: denies: dysuria, frequency, incontinence, hematuria, retention, other Musculoskeletal: denies: neck pain, shoulder pain, arm pain, back pain, hand pain, leg pain, foot pain, other Skin: denies: rash, lesions, bridger, bruising, other Neurological: denies: weakness, numbness, incoordination, change in speech, confusion, seizures, other - Medication Medications: New medications include Lopressor Clonidine Pravastatin Metformin Glimepiride Aspirin Plavix Vicodin Allergy to [facility] Hospitalist History - Past Medical History Other Medical History: Past medical history includes Hypertension Hyperlipidemia Type 2 diabetes mellitus Peripheral vascular disease NSTEMI Coronary artery disease status post CABG - Past Surgical History Other Surgical History: Past surgical history includes Amputation of right fourth toe Amputation of left second third and fourth toes CABG on August 28, 2020 - Family History Other Family History: Denies family history of cardiac disease. - Social History Smoking Status: Never smoker Alcohol: reports: None Drugs: reports: none Living Situation: With Family Activity level: independent ambulation - Exam General Appearance: NAD, awake alert Eye: PERRL, anicteric sclera ENT: normocephalic atraumatic, no oropharyngeal lesions, moist mucosa Neck: supple, symmetric, no JVD, no thyromegaly, no lymphadenopathy, no carotid bruit Heart: RRR, no murmur, no gallops, no rubs, normal peripheral pulses Heart - other findings: Incision to sternum clean dry intact Respiratory: CTAB, no wheezes, no rales, no ronchi, normal chest expansion, no tachypnea, normal percussion Gastrointestinal: soft, non-tender, non-distended, normal bowel sounds, no palpable masses, no hepatomegaly, no splenomegaly, no bruit Extremities: no cyanosis, no clubbing, no edema Skin: normal turgor, no lesions, no rashes Neurological: cranial nerve grossly intact, normal sensation to touch, no weakness, no focal deficits, no new deficit Musculoskeletal: normal tone, normal strength, no muscle wasting Psychiatric: normal affect, normal behavior, A&O x 3 Hospitalist Results - Labs Result Diagrams: 09/04/20 13:16 09/04/20 13:16 Lab results: WBC 8.7 thou/uL (4.8-10.8) 09/04/20 13:16 Hgb 8.0 g/dL (14.0-18.0) L 09/04/20 13:16 Hct 23.5 % (42.0-52.0) L 09/04/20 13:16 MCV 95.4 fL (78.0-98.0) 09/04/20 13:16 Plt Count 319 thou/uL (130-400) 09/04/20 13:16 Neutrophils % 73.8 % (42.0-75.0) 09/04/20 13:16 Sodium 129 mmol/L (136-145) L 09/04/20 13:16 Potassium 4.0 mmol/L (3.5-5.1) 09/04/20 13:16 Chloride 89 mmol/L (98-107) L 09/04/20 13:16 Carbon Dioxide 29 mmol/L (23-31) 09/04/20 13:16 BUN 44 mg/dL (8.4-25.7) H 09/04/20 13:16 Creatinine 2.47 mg/dL (0.7-1.3) H 09/04/20 13:16 Glucose 331 mg/dL (80-115) H 09/04/20 13:16 Calcium 8.3 mg/dL (7.8-10.44) 09/04/20 13:16 Total Bilirubin 0.3 mg/dL (0.2-1.2) 09/04/20 13:16 AST 14 U/L (5-34) 09/04/20 13:16 ALT 14 U/L (8-55) 09/04/20 13:16 Alkaline Phosphatase 55 U/L (40-110) 09/04/20 13:16 Creatine Kinase 45 U/L (30-200) 09/04/20 13:16 CK-MB (CK-2) 1.9 ng/mL (0-6.6) 09/04/20 13:16 Troponin I 0.277 ng/mL (< 0.028) H 09/04/20 16:50 Serum Total Protein 5.9 g/dL (5.8-8.1) 09/04/20 13:16 Albumin 3.2 g/dL (3.4-4.8) L 09/04/20 13:16 Urine Ketones Negative mg/dL (Negative) 09/04/20 14:15 Urine Blood Negative (Negative) 09/04/20 14:15 Urine Nitrite Negative (Negative) 09/04/20 14:15 Ur Leukocyte Esterase 75 Elysia/uL (Negative) A 09/04/20 14:15 Urine RBC 0-3 HPF (0-3) 09/04/20 14:15 Urine WBC 7-10 HPF (0-3) A 09/04/20 14:15 Ur Squamous Epith Cells 0-3 HPF (0-3) 09/04/20 14:15 Urine Bacteria None Seen HPF (None Seen) 09/04/20 14:15 Hospitalist H&P A/P - Plan Plan: 69-year male with possible history of hypertension, hyperlipidemia, type 2 diabetes, coronary artery disease, NSTEMI with recent CABG on 10/29/2019 presents with elevated blood sugar found to have MADISON. Acute kidney injury BUN/CR elevated 44/2.47. Patient's baseline creatinine appears to be 1.2 which was last done after his CABG. Patient received IV fluids in emergency room. We will continue gentle IV fluids and continue to monitor. Plan Gentle IV fluids Trend kidney function Avoid nephrotoxic agents were possible Elevated troponin Troponin mildly elevated to 0.219. Likely elevated in setting of recent CABG. Patient has no chest pain and EKG showed normal sinus rhythm. We will continue to trend and place on telemetry monitoring for observation. Plan Telemetry monitoring Trend troponin Likely secondary to recent CABG Coronary artery disease History of coronary artery disease with recent CABG on 08/28/2020. Patient was discharged on aspirin, Plavix, Lopressor. We will continue these medications and hold home lasix in setting of MADISON. Type 2 diabetes mellitus History of type 2 diabetes mellitus. On home metformin and glimepiride. Home health aide noticed patient's blood sugar elevated at 380 and asked patient to present to emergency room. Patient fully asymptomatic. Glucose on presentation 331. Hold home metformin 2/[address] on insulin sliding scale with ACHS glucose checks. Plan ISS Hold metformin in setting of MADISON, continue glimepiride ACHS glucose checks Hypertension On home Lopressor, clonidine will continue. Hyperlipidemia We will continue home statin DVT prophylaxisSCDs Full code Discussed with Dr. Gaston.
[2020-09-04] MEDS ORDERED: Bisacodyl 5 MG TAB PO PRN (17:52)
[2020-09-04] MEDS ORDERED: Acetaminophen 325 MG TAB PO PRN (17:52)
[2020-09-04] MEDS ORDERED: Senokot S 8.6-50 MG TAB PO PRN (17:52)
[2020-09-04] MEDS ORDERED: Dextrose 50% Abboject 50 ML SYRINGE SLOW IVP PRN (17:59)
[2020-09-04] MEDS ORDERED: Dextrose 5% in Water 1,000 ML IV PRN (17:59)
[2020-09-04] MEDS ORDERED: Sodium Chloride 0.9% 1,000 ML IV SCH ×2 (18:00→19:00)
[2020-09-04 20:15] LABS: Troponin I 0.273 ng/mL (< 0.028)
[2020-09-04] MEDS: Atorvastatin Calcium 20 MG TAB PO SCH (20:21)
[2020-09-04] MEDS: Metoprolol Tartrate 50 MG TAB PO SCH (20:21)
[2020-09-04] MEDS: HumaLOG 300 UNITS/3 ML VIAL SC PRN (20:30)
[2020-09-04] MEDS ORDERED: Non-Formulary Item 1 EACH (Metformin Hcl [Metformin Hcl] 1,000 MG Tablet) PO SCH (21:00)
[2020-09-04] MEDS ORDERED: Pravastatin Sodium 40 MG TAB PO SCH (21:00)
[2020-09-04 21:56] VITALS: BMI 29.2
[2020-09-05 04:32] LABS: #Basophils 0.1 thou/uL (0.0-0.2); #Eosinphils 0.2 thou/uL (0.0-0.7); #Lymphocytes 1.8 thou/uL (1.20-3.40); #Monocytes 0.5 thou/uL (0.11-0.59); #Neutrophils 6.3 thou/uL (1.40-6.50); %Basophils 0.6 % (0.0-1.0); %Eosinophils 1.9 % (0.0-10.0); %Lymphocytes 20.9 % (21.0-51.0); %Monocytes 5.3 % (0.0-10.0); %Neutrophils 71.4 % (42.0-75.0); Hemoglobin 7.6 g/dL (14.0-18.0); Mean Corpuscular HGB CONC 33.8 g/dL (32.0-36.0); Mean Corpuscular Hemoglobin 32.2 pg (27.0-31.0); Mean Platelet Volume 8.2 fL (7.4-10.4); Platelet Count 293 thou/uL (130-400); RBC Distribution Width 13.7 % (11.5-14.5); Red Blood Cell (RBC) Count 2.36 mill/uL (4.70-6.10); White Blood Cell (WBC) Count 8.8 thou/uL (4.8-10.8)
[2020-09-05 04:46] LABS: Anion Gap 13 mmol/L (10-20); BUN (Urea Nitrogen) 38 mg/dL (8.4-25.7); Calc. Creatinine Clearance 47 mL/min (70-130); Calcium 7.7 mg/dL (7.8-10.44); Carbon Dioxide 27 mmol/L (23-31); Chloride 96 mmol/L (98-107); Glucose 192 mg/dL (80-115); Potassium 3.7 mmol/L (3.5-5.1); Sodium 132 mmol/L (136-145)
[2020-09-05] MEDS: HumaLOG 300 UNITS/3 ML VIAL SC PRN ×3 (06:24→21:01)
[2020-09-05] MEDS: Metoprolol Tartrate 50 MG TAB PO SCH ×2 (08:59→21:00)
[2020-09-05] MEDS: Aspirin 81 mg Enteric Coated Tablet PO SCH (08:59)
[2020-09-05] MEDS: Amlodipine 5 MG TAB PO SCH (08:59)
[2020-09-05] MEDS: Glimepiride 4 MG TAB PO SCH (08:59)
[2020-09-05] MEDS: Clopidogrel Bisulfate 75 MG TAB PO SCH (08:59)
--- NOTE | 2020-09-05 15:18 | PDOC.HOSPP ---
- Subjective Encounter Date: 09/05/20 Encounter Time: 07:30 Subjective: Patient seen for follow-up regarding acute kidney injury. Reports feeling better. - Objective Vital Signs & Weight: Vital Signs (12 hours) Temp Pulse Resp BP BP Pulse Ox 09/05/20 10:48 98.5 F 63 13 113/58 L 97 09/05/20 08:59 72 140/63 09/05/20 08:55 72 16 140/63 99 09/05/20 04:00 98.4 F 66 15 111/56 L 93 L Weight Weight 173 lb 9.6 oz I&O: 09/04/20 09/05/20 09/06/20 06:59 06:59 06:59 Intake Total 1150 Output Total 550 225 Balance 600 -225 Result Diagrams: 09/05/20 04:14 09/05/20 04:14 Additional Labs: Accuchecks 09/05/20 09/05/20 09/04/20 10:47 06:12 20:28 POC Glucose 211 H 159 H 310 H I reviewed patient's labs and MAR EKG Reviewed by me: Yes (Normal sinus rhythm on telemetry) Hospitalist ROS - Review of Systems Cardiovascular: denies: chest pain, palpitations, orthopnea, paroxysmal noc. dyspnea, edema, light headedness Gastrointestinal: denies: nausea, vomiting, abdominal pain, diarrhea, constipation, melena, hematochezia - Medication Medications: Active Medications Generic Name Dose Route Start Last Admin Trade Name Freq PRN Reason Stop Dose Admin Amlodipine Besylate 5 mg 09/05/20 09:00 09/05/20 08:59 Amlodipine 5 Mg Tab PO 5 mg DAILY BAR Administration Aspirin 81 mg 09/05/20 09:00 09/05/20 08:59 Aspirin 81 Mg Enteric Coated Tablet PO 81 mg DAILY BAR Administration Atorvastatin Calcium 20 mg 09/04/20 21:00 09/04/20 20:21 Atorvastatin Calcium 20 Mg Tab PO 20 mg HS BAR Administration Clopidogrel Bisulfate 75 mg 09/05/20 09:00 09/05/20 08:59 Clopidogrel Bisulfate 75 Mg Tab PO 75 mg DAILY BAR Administration Glimepiride 4 mg 09/05/20 08:00 09/05/20 08:59 Glimepiride 4 Mg Tab PO 4 mg QAM- BAR Administration Insulin Human Lispro 0 units 09/04/20 17:59 09/05/20 06:24 Humalog 300 Units/3 Ml Vial SC 2 unit .MILD SLIDING SCALE PRN Administration Mild Correctional Scale Insulin Human Lispro 0 units 09/04/20 17:59 09/04/20 20:30 Humalog 300 Units/3 Ml Vial SC 4 unit .BEDTIME SLIDING SC PRN Administration Bedtime Correctional Scale Metoprolol Tartrate 50 mg 09/04/20 21:00 09/05/20 08:59 Metoprolol Tartrate 50 Mg Tab PO 50 mg BID BAR Administration Sodium Chloride 10 ml 09/04/20 21:00 09/05/20 09:00 Flush - Normal Saline 10 Ml Syringe IVF 10 ml Q12HR BAR Administration - Exam General Appearance: awake alert Eye: anicteric sclera ENT: moist mucosa Neck: supple Heart: RRR Respiratory: CTAB Gastrointestinal: soft, non-tender Skin: no rashes Psychiatric: normal affect, normal behavior Hosp A/P - Plan -Assessment/plan Acute kidney injury Creatinine improved, continue IV fluids. Recheck labs. Metformin is on hold, continue to hold. Elevated troponin Likely secondary to chronic kidney disease, patient denies any chest pain at this time. Being monitored on telemetry. Coronary artery disease Status post coronary artery bypass graft. Type 2 diabetes mellitus Continue glimepiride, Metformin is on hold. Continue Accu-Cheks and insulin sliding scale. Hypertension Monitor vital signs and titrate antihypertensives as needed. Hyperlipidemia Continue atorvastatin 20 mg at bedtime.
[2020-09-05] MEDS: Sodium Chloride 0.9% 1,000 ML IV SCH (16:40)
[2020-09-05] MEDS: Atorvastatin Calcium 20 MG TAB PO SCH (21:00)
[2020-09-06] MEDS: Sodium Chloride 0.9% 1,000 ML IV SCH ×2 (03:49→10:29)
[2020-09-06 04:31] LABS: #Eosinphils 0.1 thou/uL (0.0-0.7); #Lymphocytes 1.5 thou/uL (1.20-3.40); #Monocytes 0.6 thou/uL (0.11-0.59); #Neutrophils 7.3 thou/uL (1.40-6.50); %Basophils 0.5 % (0.0-1.0); %Eosinophils 0.7 % (0.0-10.0); %Lymphocytes 16.1 % (21.0-51.0); %Monocytes 5.8 % (0.0-10.0); %Neutrophils 76.9 % (42.0-75.0); Hemoglobin 8.2 g/dL (14.0-18.0); Mean Corpuscular HGB CONC 33.8 g/dL (32.0-36.0); Mean Corpuscular Hemoglobin 32.2 pg (27.0-31.0); Mean Corpuscular Volume 95.3 fL (78.0-98.0); Mean Platelet Volume 8.1 fL (7.4-10.4); Platelet Count 345 thou/uL (130-400); Red Blood Cell (RBC) Count 2.53 mill/uL (4.70-6.10); White Blood Cell (WBC) Count 9.5 thou/uL (4.8-10.8)
[2020-09-06 04:48] LABS: Anion Gap 14 mmol/L (10-20); BUN (Urea Nitrogen) 31 mg/dL (8.4-25.7); Calc. Creatinine Clearance 61 mL/min (70-130); Calcium 7.8 mg/dL (7.8-10.44); Carbon Dioxide 27 mmol/L (23-31); Chloride 100 mmol/L (98-107); Glucose 174 mg/dL (80-115); Sodium 137 mmol/L (136-145)
[2020-09-06 08:21] VITALS: BP 169/82; TEMP 98.4
[2020-09-06] MEDS: Glimepiride 4 MG TAB PO SCH (08:21)
[2020-09-06] MEDS: Metoprolol Tartrate 50 MG TAB PO SCH (08:21)
[2020-09-06] MEDS: Aspirin 81 mg Enteric Coated Tablet PO SCH (08:21)
[2020-09-06] MEDS: Clopidogrel Bisulfate 75 MG TAB PO SCH (08:21)
[2020-09-06] MEDS: Amlodipine 5 MG TAB PO SCH (08:21)
[2020-09-06] MEDS ORDERED: Metoclopramide HCl 10 MG/2 ML VIAL IVP SCH (09:15)
--- NOTE | 2020-09-06 11:14 | PDOC.DS.DS ---
Provider - Provider Date of Admission: 09/04/20 18:41 Date of Discharge: 09/06/20 Admitting Provider: My Gaston MD Primary Care Physician: Jacinto Lira MD Course - Hospital Course Hospital Course: Discharge diagnosis: 1. Acute kidney injury Hospital course: Patient is a pleasant 63-year-old gentleman who was admitted to the hospital on September 04, 2020 for acute kidney injury. Nephrotoxic medications were held and he received intravenous fluids, with resolution of acute kidney injury. He is being discharged home in a stable condition. Patient had leukocyte esterase on urinalysis but he did not have any urinary symptoms. No change was made to his preadmission home medications. Discharge destination: Home Resuscitation Status: 09/04/20 17:52 Resuscitation Status Routine Co-Sign Provider: Resuscitation Status: FULL: Full Resuscitation - Labs Lab Results: 09/06/20 03:57 09/06/20 03:57 Abnormal Lab Results - Last 48 hrs 09/04/20 13:16: RBC 2.46 L, Hgb 8.0 L, Hct 23.5 L, MCH 32.6 H, Lymphocytes % 18.1 L 09/04/20 13:16: Troponin I 0.291 H 09/04/20 13:16: Sodium 129 L, Chloride 89 L, BUN 44 H, Creatinine 2.47 H, Albumin 3.2 L 09/04/20 14:15: Urine Glucose (UA) 100 A, Ur Leukocyte Esterase 75 A, Urine WBC 7-10 A, Hyaline Casts 11-20 A 09/04/20 16:50: Troponin I 0.277 H 09/04/20 19:34: Troponin I 0.273 H 09/05/20 04:14: Sodium 132 L, Chloride 96 L, BUN 38 H, Creatinine 1.72 H, Calcium 7.7 L 09/05/20 04:14: RBC 2.36 L, Hgb 7.6 L, Hct 22.5 L, MCH 32.2 H, Lymphocytes % 20 .9 L 09/06/20 03:57: BUN 31 H 09/06/20 03:57: RBC 2.53 L, Hgb 8.2 L, Hct 24.2 L, MCH 32.2 H, Neutrophils % 76.9 H, Lymphocytes % 16.1 L, Neutrophils # 7.3 H, Monocytes # 0.6 H - Physical Exam Vitals: Vital Signs (12 hours) Temp Pulse Resp BP BP Pulse Ox 09/06/20 08:21 76 169/82 H 09/06/20 08:19 98.4 F 76 16 169/82 H 99 09/06/20 01:11 99 Weight Weight 175 lb 9.6 oz Physical Exam: The patient was seen and examined on the day of discharge. Patient denies chest pain or shortness of breath. Vital signs are stable. S1 and S2 are heard. Lungs are clear to auscultation bilaterally. Plan - Discharge Medications Home Medications: Medication Instructions Recorded Confirmed Type Aspirin [Adult Aspirin] 81 mg PO DAILY 08/31/18 09/04/20 History Glimepiride [Amaryl] 4 mg PO QAM-WM 08/31/18 09/04/20 History Pravastatin Sodium 80 mg PO HS 08/31/18 09/04/20 History metFORMIN HCl 1,000 mg PO BID 08/31/18 09/04/20 History Amlodipine [Norvasc] 5 mg PO DAILY 09/01/20 09/04/20 History Clopidogrel Bisulfate [Plavix] 75 mg PO DAILY #30 tab 09/01/20 09/04/20 Rx Furosemide [Lasix] 40 mg PO DAILY #7 tab 09/01/20 09/04/20 Rx HYDROcodone Bit/APAP 5/325 [Vinson] 1 tab PO Q4H PRN #40 tab 09/01/20 09/04/20 Rx Lisinopril/Hydrochlorothiazide 1 tablet PO BID 09/01/20 09/04/20 History [Lisinopril-Hctz 10-12.5 mg Tab] Metoprolol Tartrate [Lopressor] 50 mg PO BID #60 tab 09/01/20 09/04/20 Rx chlorproMAZINE HCl [Chlorpromazine 25 mg PO BID 09/01/20 09/04/20 History HCl] cloNIDine HCl 0.2 mg PO BID #60 tablet 09/01/20 09/04/20 Rx Allergies: levofloxacin [From Levaquin] Allergy (Intermediate, Verified 08/31/18 17:31) itching - Follow up Plan Referrals: Jacinto Lira MD [Primary Care Provider] - 3 Days (follow up with your primary care provider within 7 days. ) Disposition: HOME Quality - Care Measures CORE MEASURES:: N/A
== END 2020-09-06 11:25 | disposition home or self-care (01) ==
LOC: ERS 12:50 → 2NO 18:41
PROVIDERS: ADMIT Internal Medicine; ATTEND Internal Medicine
DX: N17.9 Acute kidney failure, unspecified (principal); E11.9 Type 2 diabetes mellitus without complications; I10 Essential (primary) hypertension; E78.5 Hyperlipidemia, unspecified; I73.9 Peripheral vascular disease, unspecified; I25.10 Atherosclerotic heart disease of native coronary artery without angina pectoris; Z79.02 Long term (current) use of antithrombotics/antiplatelets; Z79.82 Long term (current) use of aspirin; Z79.84 Long term (current) use of oral hypoglycemic drugs; Z79.899 Other long term (current) drug therapy; Z88.1 Allergy status to other antibiotic agents; Z95.1 Presence of aortocoronary bypass graft
CPT/HCPCS: 71045; 80048 ×2; 80053; 82550; 82553; 82962 ×3; 84484 ×2; 85025 ×3; 93005; 96374; 97139; 99285; G0378 ×4; 36415; 36416; 81003; 81015; J2765

== ENCOUNTER 2021-01-05 05:53 | Inpatient (IN) | payer MEDICARE ==
[2021-01-05 07:20] LABS: #Lymphocytes 2.1 thou/uL (1.20-3.40); #Neutrophils 14.6 thou/uL (1.40-6.50); %Basophils 0.3 % (0.0-1.0); %Eosinophils 0.1 % (0.0-10.0); %Lymphocytes 11.9 % (21.0-51.0); %Monocytes 5.6 % (0.0-10.0); %Neutrophils 82.2 % (42.0-75.0); Hemoglobin 13.2 g/dL (14.0-18.0); Mean Corpuscular HGB CONC 33.7 g/dL (32.0-36.0); Mean Corpuscular Hemoglobin 27.2 pg (27.0-31.0); Mean Corpuscular Volume 80.7 fL (78.0-98.0); Mean Platelet Volume 9.5 fL (7.4-10.4); Platelet Count 229 thou/uL (130-400); RBC Distribution Width 18.4 % (11.5-14.5); Red Blood Cell (RBC) Count 4.84 mill/uL (4.70-6.10); White Blood Cell (WBC) Count 17.7 thou/uL (4.8-10.8)
[2021-01-05 07:50] LABS: ALT (SGPT) 17 U/L (8-55); AST (SGOT) 20 U/L (5-34); Albumin 3.5 g/dL (3.4-4.8); Alkaline Phosphatase 85 U/L (40-110); Anion Gap 16 mmol/L (10-20); BUN (Urea Nitrogen) 18 mg/dL (8.4-25.7); Bilirubin, Total 0.7 mg/dL (0.2-1.2); Calc. Creatinine Clearance 0 mL/min (70-130); Calcium 9.1 mg/dL (7.8-10.44); Carbon Dioxide 22 mmol/L (23-31); Chloride 96 mmol/L (98-107); Globulin 3.8 g/dL (2.4-3.5); Glucose 260 mg/dL (80-115); Lipase 21 U/L (8-78); Potassium 4.3 mmol/L (3.5-5.1); Protein, Total 7.3 g/dL (5.8-8.1); Sodium 130 mmol/L (136-145)
[2021-01-05] MEDS ORDERED: Cefepime 2 GM VIAL ONE (08:33)
[2021-01-05] MEDS ORDERED: Iopamidol-370 76% 500 ML 1 ML ONE (08:50)
[2021-01-05 09:27] LABS: Bilirubin Negative (Negative); Blood, Urine 3+ (Negative); Clarity Clear (Clear); Glucose, Urine (Dipstick) 150 mg/dL (Negative); Ketone, Urine Negative (Negative); Leukocyte 250 Leu/uL (Negative); Nitrite Negative (Negative); Protein, Urine (Dipstick) 600 mg/dL (Neg-Trace); RBC/HPF 21-50 HPF (0-3); Specific Gravity, Urine 1.012 (1.002-1.036); Squamous Epithelial None Seen HPF (0-3); Urobilinogen Normal mg/dL (Less than 2); WBC/HPF Greater than 50 HPF (0-3)
[2021-01-05 09:36] LABS: Bacteria/HPF 1+ HPF (None Seen)
[2021-01-05] MEDS ORDERED: Aspirin Chewable 81 MG TAB ONE (10:23)
[2021-01-05] MEDS ORDERED: Acetaminophen 325 MG TAB PO PRN (11:50)
[2021-01-05] MEDS ORDERED: Dextrose 5% in Water 1,000 ML IV PRN (11:53)
[2021-01-05] MEDS ORDERED: Dextrose 50% Abboject 50 ML SYRINGE SLOW IVP PRN (11:53)
[2021-01-05] MEDS ORDERED: Metoprolol Tartrate 5 MG/5 ML VIAL IVP PRN (11:54)
[2021-01-05] MEDS ORDERED: chlorproMAZINE HCl 25 MG TAB PO PRN (12:04)
[2021-01-05] MEDS: Heparin 5,000 UNITS/ML VIAL SC SCH ×2 (15:33→20:34)
[2021-01-05] MEDS: Sodium Chloride 0.9% 1,000 ML IV SCH (15:34)
[2021-01-05 15:46] LABS: Troponin I 0.054 ng/mL (< 0.028)
[2021-01-05] MEDS: HumaLOG 300 UNITS/3 ML VIAL SC PRN (17:10)
[2021-01-05 19:03] LABS: Troponin I 0.049 ng/mL (< 0.028)
[2021-01-05] MEDS: Cefepime 1 GM in Sodium Chloride 0.9% 100 ML IVPB SCH (20:05)
[2021-01-05] MEDS: Atorvastatin Calcium 20 MG TAB PO SCH (20:33)
[2021-01-05] MEDS: Tamsulosin HCl 0.4 MG CAP PO SCH (20:34)
[2021-01-05] MEDS: Metoprolol Tartrate 50 MG TAB PO SCH (20:34)
[2021-01-05] MEDS: cloNIDine 0.2 MG TAB PO SCH (20:34)
[2021-01-06 01:24] LABS: SARS-CoV-2 PCR by NAA Not Detected (NotDetected)
[2021-01-06 04:49] LABS: #Lymphocytes 1.2 thou/uL (1.20-3.40); #Monocytes 0.6 thou/uL (0.11-0.59); #Neutrophils 8.3 thou/uL (1.40-6.50); %Basophils 0.1 % (0.0-1.0); %Eosinophils 0.1 % (0.0-10.0); %Lymphocytes 12.1 % (21.0-51.0); %Monocytes 6.1 % (0.0-10.0); %Neutrophils 81.6 % (42.0-75.0); Hemoglobin 10.6 g/dL (14.0-18.0); Mean Corpuscular HGB CONC 32.4 g/dL (32.0-36.0); Mean Corpuscular Hemoglobin 26.7 pg (27.0-31.0); Mean Corpuscular Volume 82.2 fL (78.0-98.0); Mean Platelet Volume 9.4 fL (7.4-10.4); Platelet Count 208 thou/uL (130-400); RBC Distribution Width 18.3 % (11.5-14.5); Red Blood Cell (RBC) Count 3.96 mill/uL (4.70-6.10); White Blood Cell (WBC) Count 10.2 thou/uL (4.8-10.8)
[2021-01-06 05:10] LABS: Anion Gap 11 mmol/L (10-20); BUN (Urea Nitrogen) 22 mg/dL (8.4-25.7); Calc. Creatinine Clearance 73 mL/min (70-130); Calcium 8.4 mg/dL (7.8-10.44); Carbon Dioxide 23 mmol/L (23-31); Chloride 106 mmol/L (98-107); Glucose 193 mg/dL (80-115); Potassium 3.9 mmol/L (3.5-5.1); Sodium 136 mmol/L (136-145)
[2021-01-06] MEDS: Sodium Chloride 0.9% 1,000 ML IV SCH ×2 (05:43→15:12)
[2021-01-06] MEDS: HumaLOG 300 UNITS/3 ML VIAL SC PRN ×3 (05:45→14:30)
[2021-01-06] MEDS: Clopidogrel Bisulfate 75 MG TAB PO SCH (09:04)
[2021-01-06] MEDS: Aspirin 81 mg Enteric Coated Tablet PO SCH (09:04)
[2021-01-06] MEDS: cloNIDine 0.2 MG TAB PO SCH ×2 (09:04→21:09)
[2021-01-06] MEDS: Cefepime 1 GM in Sodium Chloride 0.9% 100 ML IVPB SCH ×2 (09:05→21:09)
[2021-01-06] MEDS: Metoprolol Tartrate 50 MG TAB PO SCH ×2 (09:05→21:09)
[2021-01-06] MEDS: Heparin 5,000 UNITS/ML VIAL SC SCH ×3 (09:05→21:12)
[2021-01-06] MEDS: Atorvastatin Calcium 20 MG TAB PO SCH (21:09)
[2021-01-06] MEDS: Tamsulosin HCl 0.4 MG CAP PO SCH (21:09)
[2021-01-07 05:15] LABS: #Eosinphils 0.1 thou/uL (0.0-0.7); #Lymphocytes 1.5 thou/uL (1.20-3.40); #Monocytes 0.6 thou/uL (0.11-0.59); #Neutrophils 4.2 thou/uL (1.40-6.50); %Basophils 0.4 % (0.0-1.0); %Eosinophils 1.5 % (0.0-10.0); %Lymphocytes 23.7 % (21.0-51.0); %Monocytes 9.3 % (0.0-10.0); %Neutrophils 65.1 % (42.0-75.0); Hemoglobin 10.5 g/dL (14.0-18.0); Mean Corpuscular HGB CONC 32.4 g/dL (32.0-36.0); Mean Corpuscular Hemoglobin 26.5 pg (27.0-31.0); Mean Corpuscular Volume 81.9 fL (78.0-98.0); Mean Platelet Volume 9.3 fL (7.4-10.4); Platelet Count 209 thou/uL (130-400); RBC Distribution Width 18.4 % (11.5-14.5); Red Blood Cell (RBC) Count 3.98 mill/uL (4.70-6.10); White Blood Cell (WBC) Count 6.4 thou/uL (4.8-10.8)
[2021-01-07 05:34] LABS: Anion Gap 10 mmol/L (10-20); BUN (Urea Nitrogen) 22 mg/dL (8.4-25.7); Calc. Creatinine Clearance 73 mL/min (70-130); Calcium 8.2 mg/dL (7.8-10.44); Carbon Dioxide 24 mmol/L (23-31); Chloride 105 mmol/L (98-107); Glucose 230 mg/dL (80-115); Sodium 135 mmol/L (136-145)
[2021-01-07] MEDS: Sodium Chloride 0.9% 1,000 ML IV SCH (06:07)
[2021-01-07] MEDS: HumaLOG 300 UNITS/3 ML VIAL SC PRN ×3 (06:53→20:53)
[2021-01-07] MEDS: Aspirin 81 mg Enteric Coated Tablet PO SCH (08:20)
[2021-01-07] MEDS: Metoprolol Tartrate 50 MG TAB PO SCH ×2 (08:20→20:23)
[2021-01-07] MEDS: Clopidogrel Bisulfate 75 MG TAB PO SCH (08:21)
[2021-01-07] MEDS: Heparin 5,000 UNITS/ML VIAL SC SCH ×3 (08:21→20:24)
[2021-01-07] MEDS: Cefepime 1 GM in Sodium Chloride 0.9% 100 ML IVPB SCH ×2 (08:21→20:24)
[2021-01-07] MEDS: Glimepiride 4 MG TAB PO SCH (08:21)
[2021-01-07] MEDS: cloNIDine 0.2 MG TAB PO SCH ×2 (08:21→20:22)
[2021-01-07] MEDS: Atorvastatin Calcium 20 MG TAB PO SCH (20:23)
[2021-01-07] MEDS: Tamsulosin HCl 0.4 MG CAP PO SCH (20:23)
[2021-01-08] MEDS: HumaLOG 300 UNITS/3 ML VIAL SC PRN ×2 (06:25→11:20)
[2021-01-08] MEDS: Cefepime 1 GM in Sodium Chloride 0.9% 100 ML IVPB SCH (08:01)
[2021-01-08] MEDS: Aspirin 81 mg Enteric Coated Tablet PO SCH (08:01)
[2021-01-08] MEDS: Clopidogrel Bisulfate 75 MG TAB PO SCH (08:02)
[2021-01-08] MEDS: Heparin 5,000 UNITS/ML VIAL SC SCH (08:02)
[2021-01-08] MEDS: Metoprolol Tartrate 50 MG TAB PO SCH (08:02)
[2021-01-08] MEDS: cloNIDine 0.2 MG TAB PO SCH (08:02)
[2021-01-08] MEDS ORDERED: Docusate 100 MG CAP PO PRN (08:14)
[2021-01-08] MEDS: Glimepiride 4 MG TAB PO SCH (09:12)
[2021-01-08 12:26] VITALS: BP 164/83; TEMP 98.2
== END 2021-01-08 12:43 | disposition home or self-care (01) | DRG 872 ==
LOC: ERS 05:53 → ERHOLD 11:16 → 2NO 14:39 → T4-A 01-07 13:30
PROVIDERS: ADMIT Internal Medicine; ATTEND Internal Medicine
DX: A41.9 Sepsis, unspecified organism (principal); N39.0 Urinary tract infection, site not specified; N13.8 Other obstructive and reflux uropathy; I25.10 Atherosclerotic heart disease of native coronary artery without angina pectoris; Z95.1 Presence of aortocoronary bypass graft; E78.00 Pure hypercholesterolemia, unspecified; E11.51 Type 2 diabetes mellitus with diabetic peripheral angiopathy without gangrene; Z89.422 Acquired absence of other left toe(s); Z89.421 Acquired absence of other right toe(s); Z88.1 Allergy status to other antibiotic agents; R06.6 Hiccough; R77.8 Other specified abnormalities of plasma proteins; N40.1 Benign prostatic hyperplasia with lower urinary tract symptoms; I12.9 Hypertensive chronic kidney disease with stage 1 through stage 4 chronic kidney disease, or unspecified chronic kidney disease; E11.22 Type 2 diabetes mellitus with diabetic chronic kidney disease; N18.2 Chronic kidney disease, stage 2 (mild)
CPT/HCPCS: 36415; 36416; 71275; 72191; 74174; 80048; 80053; 81003; 81015; 82553; 83605; 83690; 84484; 85025; 87040; 87086; 87635; 93005; 96365; J0692; J1644; J1815; J3490; Q9967; U0003; U0005

== ENCOUNTER 2021-11-17 12:33 | Observation (INO) | payer MEDICARE ==
[2021-11-17 13:44] LABS: #Monocytes 0.4 thou/uL (0.11-0.59); #Neutrophils 4.9 thou/uL (1.40-6.50); %Basophils 0.2 % (0.0-1.0); %Eosinophils 0.3 % (0.0-10.0); %Lymphocytes 15.6 % (21.0-51.0); %Monocytes 5.7 % (0.0-10.0); %Neutrophils 78.2 % (42.0-75.0); Hemoglobin 12.9 g/dL (14.0-18.0); Mean Corpuscular HGB CONC 35.3 g/dL (32.0-36.0); Mean Corpuscular Hemoglobin 32.8 pg (27.0-31.0); Mean Corpuscular Volume 93.1 fL (78.0-98.0); Platelet Count 232 thou/uL (130-400); RBC Distribution Width 12.1 % (11.5-14.5); Red Blood Cell (RBC) Count 3.94 mill/uL (4.70-6.10); White Blood Cell (WBC) Count 6.2 thou/uL (4.8-10.8)
[2021-11-17 14:04] LABS: Phosphorus 3.6 mg/dL (2.3-4.7)
[2021-11-17 14:14] LABS: Actual Bicarbonate (HCO3v) 23 mEq/L (22-28); Analyzer IN Cardio ER; Base Excess -1.9 mEq/L (-2.0 to +3.0); Calcium, Ionized (venous) 1.06 mmol/L (1.16-1.32); Chloride (VBG) 96 mmol/L (98-106); Hemoglobin (Hb) 13.3 g/dL (12.6-17.4); Potassium (VBG) 4.09 mmol/L (3.70-5.30); Sodium 127.5 mmol/L (133-146); pH (venous) 7.37 (7.32-7.43)
[2021-11-17 14:15] LABS: ALT (SGPT) 14 U/L (8-55); AST (SGOT) 15 U/L (5-34); Albumin 3.4 g/dL (3.4-4.8); Alkaline Phosphatase 46 U/L (40-110); Anion Gap 14 mmol/L (10-20); BUN (Urea Nitrogen) 35 mg/dL (8.4-25.7); Bilirubin, Total 0.5 mg/dL (0.2-1.2); Calc. Creatinine Clearance 0 mL/min (70-130); Calcium 8.4 mg/dL (7.8-10.44); Carbon Dioxide 23 mmol/L (23-31); Chloride 96 mmol/L (98-107); Globulin 2.7 g/dL (2.4-3.5); Lipase 71 U/L (8-78); Potassium 4.1 mmol/L (3.5-5.1); Protein, Total 6.1 g/dL (5.8-8.1); Sodium 129 mmol/L (136-145)
[2021-11-17 14:22] LABS: Glucose 610 mg/dL (80-115)
[2021-11-17 14:35] LABS: CKMB 4.4 ng/mL (0-6.6)
[2021-11-17 15:25] LABS: Bacteria/HPF None Seen HPF (None Seen); Bilirubin Negative (Negative); Blood, Urine Trace (Negative); Clarity Clear (Clear); Glucose, Urine (Dipstick) Greater than 1000 mg/dL (Negative); Ketone, Urine Negative (Negative); Leukocyte Negative Leu/uL (Negative); Nitrite Negative (Negative); Protein, Urine (Dipstick) 100 mg/dL (Neg-Trace); RBC/HPF 0-3 HPF (0-3); Specific Gravity, Urine 1.025 (1.002-1.036); Squamous Epithelial 0-3 HPF (0-3); Urobilinogen Normal mg/dL (Less than 2); WBC/HPF 0-3 HPF (0-3); pH, Urine 5.5 (5.0-9.0)
[2021-11-17] MEDS ORDERED: Ondansetron ODT 4 MG TAB PO PRN (17:08)
[2021-11-17] MEDS ORDERED: Acetaminophen 325 MG TAB PO PRN (17:08)
[2021-11-17] MEDS ORDERED: Dextrose 5% in Water 1,000 ML IV PRN (17:09)
[2021-11-17] MEDS ORDERED: Dextrose 50% Abboject 50 ML SYRINGE SLOW IVP PRN (17:09)
[2021-11-17] MEDS ORDERED: HumaLOG 300 UNITS/3 ML VIAL SC PRN (17:09)
[2021-11-17] MEDS ORDERED: Docusate 100 MG CAP PO PRN (17:10)
[2021-11-17] MEDS ORDERED: hydrALAZINE 20 MG/ML VIAL SLOW IVP PRN (17:10)
[2021-11-17] MEDS ORDERED: Nitroglycerin 0.4 MG TAB (25 Tab Bottle) SL PRN (17:11)
[2021-11-17] MEDS ORDERED: Electrolyte Replacement Protocol 1 EACH FS SCH (17:15)
[2021-11-17 17:37] LABS: Troponin I 0.087 ng/mL (< 0.028)
[2021-11-17] MEDS ORDERED: Electrolyte Replacement Protocol FS PRN (17:45)
[2021-11-17] MEDS ORDERED: Magnesium 2 GM/50 ML(in water) 2 GM in Premix Bag 1 BAG IVPB SCH (18:00)
[2021-11-17] MEDS: Sodium Chloride 0.9% 1,000 ML IV SCH ×2 (18:37→23:45)
[2021-11-17 18:38] VITALS: BMI 27.3
[2021-11-17] MEDS: cloNIDine 0.2 MG TAB PO SCH (19:22)
[2021-11-17] MEDS: Metoprolol Tartrate 50 MG TAB PO SCH (19:22)
[2021-11-17] MEDS: Heparin 5,000 UNITS/ML VIAL SC SCH (19:23)
[2021-11-17] MEDS: HumaLOG 300 UNITS/3 ML VIAL SC PRN ×2 (19:29→22:06)
[2021-11-17 20:19] LABS: Troponin I 0.097 ng/mL (< 0.028)
[2021-11-17] MEDS ORDERED: Atorvastatin Calcium 20 MG TAB PO SCH (21:00)
[2021-11-17] MEDS ORDERED: Aspirin 325 MG TAB PO SCH (21:15)
[2021-11-18 04:34] LABS: #Eosinphils 0.1 thou/uL (0.0-0.7); #Lymphocytes 1.5 thou/uL (1.20-3.40); #Monocytes 0.4 thou/uL (0.11-0.59); #Neutrophils 3.6 thou/uL (1.40-6.50); %Basophils 0.3 % (0.0-1.0); %Eosinophils 1.9 % (0.0-10.0); %Monocytes 6.8 % (0.0-10.0); %Neutrophils 63.9 % (42.0-75.0); Hemoglobin 11.2 g/dL (14.0-18.0); Mean Corpuscular HGB CONC 34.5 g/dL (32.0-36.0); Mean Corpuscular Hemoglobin 32.1 pg (27.0-31.0); Mean Corpuscular Volume 93.2 fL (78.0-98.0); Mean Platelet Volume 7.7 fL (7.4-10.4); Platelet Count 224 thou/uL (130-400); RBC Distribution Width 12.1 % (11.5-14.5); White Blood Cell (WBC) Count 5.7 thou/uL (4.8-10.8)
[2021-11-18 04:37] LABS: Hemoglobin A1c 11.1 % (4.0-6.0)
[2021-11-18 04:58] LABS: Anion Gap 9 mmol/L (10-20); BUN (Urea Nitrogen) 24 mg/dL (8.4-25.7); Calc. Creatinine Clearance 55 mL/min (70-130); Calcium 7.9 mg/dL (7.8-10.44); Carbon Dioxide 28 mmol/L (23-31); Cardiac Risk 3.3 (Less than 4.5); Chloride 105 mmol/L (98-107); Cholesterol 104 mg/dl (< 200 Desired); Glucose 166 mg/dL (80-115); HDL Cholesterol 32 mg/dL (>60 Neg Risk); LDL Cholesterol, Calculated 36 mg/dL; Magnesium 2.3 mg/dL (1.6-2.6); Potassium 3.5 mmol/L (3.5-5.1); Sodium 138 mmol/L (136-145); Triglycerides 182 mg/dL (Less than 150)
[2021-11-18] MEDS ORDERED: Potassium Chloride 20 MEQ TAB PO SCH (05:30)
[2021-11-18] MEDS: cloNIDine 0.2 MG TAB PO SCH (08:43)
[2021-11-18] MEDS: Metoprolol Tartrate 50 MG TAB PO SCH (08:43)
[2021-11-18] MEDS: Heparin 5,000 UNITS/ML VIAL SC SCH ×2 (08:45→16:15)
[2021-11-18] MEDS ORDERED: Aspirin 81 mg Enteric Coated Tablet PO SCH ×2 (09:00)
[2021-11-18] MEDS ORDERED: Clopidogrel Bisulfate 75 MG TAB PO SCH (09:00)
[2021-11-18] MEDS: Sodium Chloride 0.9% 1,000 ML IV SCH (11:48)
[2021-11-18] MEDS: HumaLOG 300 UNITS/3 ML VIAL SC PRN ×2 (11:48→16:14)
[2021-11-18 11:59] LABS: SARS-CoV-2 PCR by NAA Not Detected (NotDetected)
[2021-11-18 15:59] VITALS: BP 164/76; TEMP 97.8
== END 2021-11-18 16:54 | disposition home health service (06) ==
LOC: ERS 12:33 → 2SW 16:11
PROVIDERS: ADMIT Internal Medicine; ATTEND Internal Medicine
DX: E11.65 Type 2 diabetes mellitus with hyperglycemia (principal); I13.10 Hypertensive heart and chronic kidney disease without heart failure, with stage 1 through stage 4 chronic kidney disease, or unspecified chronic kidney disease; E11.22 Type 2 diabetes mellitus with diabetic chronic kidney disease; N18.2 Chronic kidney disease, stage 2 (mild); N17.9 Acute kidney failure, unspecified; R77.8 Other specified abnormalities of plasma proteins; R53.1 Weakness; R55 Syncope and collapse; E78.5 Hyperlipidemia, unspecified; I65.23 Occlusion and stenosis of bilateral carotid arteries; I25.10 Atherosclerotic heart disease of native coronary artery without angina pectoris; I25.2 Old myocardial infarction; E11.51 Type 2 diabetes mellitus with diabetic peripheral angiopathy without gangrene; E87.1 Hypo-osmolality and hyponatremia; E11.42 Type 2 diabetes mellitus with diabetic polyneuropathy; I08.1 Rheumatic disorders of both mitral and tricuspid valves; Z91.14 Patient's other noncompliance with medication regimen; Z79.02 Long term (current) use of antithrombotics/antiplatelets; Z79.82 Long term (current) use of aspirin; Z79.84 Long term (current) use of oral hypoglycemic drugs; Z79.899 Other long term (current) drug therapy; Z88.1 Allergy status to other antibiotic agents; Z89.421 Acquired absence of other right toe(s); Z89.422 Acquired absence of other left toe(s); Z95.1 Presence of aortocoronary bypass graft; Z20.822 Contact with and (suspected) exposure to COVID-19
CPT/HCPCS: 70450; 71045; 80048; 80053; 80061; 82010; 82553; 82805; 82962 ×2; 83036; 83690; 83735 ×2; 83880; 84100; 84443; 84484 ×2; 85025 ×2; 87077; 87086; 93005; 93306; 93880; 94760; 96372 ×2; 96374; 99285; G0378 ×3; U0003; U0005; 36415; 36416; 81003; 81015; J1644; J1815; J3475; J7050

== ENCOUNTER 2023-04-05 12:30 | Outpatient (CLI) | payer MEDICARE | END 2023-04-05 12:31 | disposition home or self-care (01) | LOC: BICCT 12:30 | PROVIDERS: ATTEND Surgery | DX: S06.5X0D Traumatic subdural hemorrhage without loss of consciousness, subsequent encounter (principal) | CPT/HCPCS: 70450 ==

== ENCOUNTER 2023-07-06 14:04 | Inpatient (IN) | payer MEDICARE ==
[~2023-07-06 14:04] MED LIST changes: +Iopamidol-370 76% 500 ML MDV (1 ML CHARGE) ONE; -Lidocaine 2% Jelly 5 ML TUBE ONE; -Sodium Chloride 0.9% 15 ML NEB ONE
[2023-07-06 14:59] LABS: #Monocytes 0.5 thou/uL (0.11-0.59); #Neutrophils 7.4 thou/uL (1.40-6.50); %Basophils 0.1 % (0.0-1.0); %Lymphocytes 14.8 % (21.0-51.0); %Monocytes 5.7 % (0.0-10.0); Hematocrit 24.5 % (42.0-52.0); Hemoglobin 8.1 g/dL (14.0-18.0); Mean Corpuscular HGB CONC 33.1 g/dL (32.0-36.0); Mean Corpuscular Volume 81.7 fl (78.0-98.0); Mean Platelet Volume 9.6 fL (7.4-10.4); Platelet Count 171 10x3/uL (130-400); RBC Distribution Width 15.3 % (11.5-14.5); White Blood Cell (WBC) Count 9.4 10x3/uL (4.8-10.8)
[2023-07-06 15:17] LABS: ALT (SGPT) 47 U/L (8-55); AST (SGOT) 27 U/L (5-34); Albumin 4.1 g/dL (3.4-4.8); Alkaline Phosphatase 72 U/L (40-110); Anion Gap 15 mmol/L (10-20); BUN (Urea Nitrogen) 25 mg/dL (8.4-25.7); Bilirubin, Total 0.3 mg/dL (0.2-1.2); Calc. Creatinine Clearance 0 mL/min (70-130); Calcium 9.4 mg/dL (7.8-10.44); Carbon Dioxide 25 mmol/L (23-31); Chloride 100 mmol/L (98-107); Estimated GFR 37; Globulin 3.3 g/dL (2.4-3.5); Glucose 175 mg/dL (80-115); Potassium 4.5 mmol/L (3.5-5.1); Protein, Total 7.4 g/dL (5.8-8.1); Sodium 135 mmol/L (136-145)
[2023-07-06] MEDS ORDERED: Ondansetron PF 4 MG/2 ML Vial IVP PRN (19:45)
[2023-07-06] MEDS ORDERED: Sodium Chloride 0.9% 1,000 ML IV SCH (20:00)
[2023-07-06 20:53] VITALS: BMI 25.6
[2023-07-06 21:00] LABS: Iron 20 ug/dL (65-175); Iron Binding Capacity, Total 365 mcg/dL (261-462)
[2023-07-06 21:08] LABS: INR-International Normal Ratio 1.1; Prothrombin Time 15.1 sec (12.0-14.7)
[2023-07-06 21:09] LABS: PTT 36.2 sec (22.9-36.1)
[2023-07-06] MEDS: Cefepime 1 GM in Sodium Chloride 0.9% 100 ML IVPB SCH (21:48)
[2023-07-06] MEDS: Vancomycin 1 GM in Premix 1 BAG IVPB SCH (22:52)
[2023-07-06] MEDS ORDERED: Dextrose 50% Abboject 50 ML SYRINGE SLOW IVP PRN (22:58)
[2023-07-06] MEDS ORDERED: Dextrose 5% in Water 1,000 ML IV PRN (22:58)
[2023-07-06] MEDS ORDERED: HumaLOG 300 UNITS/3 ML VIAL SC PRN (22:58)
[2023-07-06] MEDS ORDERED: Glucagon 1 MG/ML KIT IM PRN (22:58)
[2023-07-07 05:42] LABS: #Eosinphils 0.1 thou/uL (0.0-0.7); #Monocytes 0.6 thou/uL (0.11-0.59); #Neutrophils 5.1 thou/uL (1.40-6.50); %Basophils 0.1 % (0.0-1.0); %Lymphocytes 14.5 % (21.0-51.0); %Monocytes 8.1 % (0.0-10.0); Hematocrit 23.7 % (42.0-52.0); Hemoglobin 7.7 g/dL (14.0-18.0); Mean Corpuscular HGB CONC 32.5 g/dL (32.0-36.0); Mean Corpuscular Hemoglobin 26.7 pg (27.0-31.0); Mean Corpuscular Volume 82.3 fl (78.0-98.0); Mean Platelet Volume 10.6 fL (7.4-10.4); Platelet Count 177 10x3/uL (130-400); RBC Distribution Width 15.9 % (11.5-14.5); Red Blood Cell (RBC) Count 2.88 mill/uL (4.70-6.10); White Blood Cell (WBC) Count 6.8 10x3/uL (4.8-10.8)
[2023-07-07 05:50] LABS: Hemoglobin A1c 9.7 % (4.0-6.0)
[2023-07-07 06:03] LABS: Anion Gap 14 mmol/L (10-20); BUN (Urea Nitrogen) 23 mg/dL (8.4-25.7); Calc. Creatinine Clearance 41 mL/min (70-130); Calcium 8.8 mg/dL (7.8-10.44); Carbon Dioxide 23 mmol/L (23-31); Chloride 102 mmol/L (98-107); Estimated GFR 42; Glucose 195 mg/dL (80-115); Potassium 5.1 mmol/L (3.5-5.1); Sodium 134 mmol/L (136-145)
[2023-07-07] MEDS ORDERED: Metoprolol Tartrate 50 MG TAB PO SCH (09:00)
[2023-07-07] MEDS ORDERED: Furosemide 20 MG TAB PO SCH (09:00)
[2023-07-07] MEDS ORDERED: Non-Formulary Item 1 EACH (Insulin Detemir [Levemir Flexpen] 100 UNIT/ML Insuln.Pen) SQ SCH (09:00)
[2023-07-07] MEDS ORDERED: Amlodipine 5 MG TAB PO SCH (09:00)
[2023-07-07] MEDS ORDERED: cloNIDine 0.2 MG TAB PO SCH (09:00)
[2023-07-07] MEDS ORDERED: Empagliflozin 10 MG TAB PO SCH (09:00)
[2023-07-07] MEDS ORDERED: Ezetimibe 10 MG TAB PO SCH (09:00)
[2023-07-07] MEDS ORDERED: Aspirin 81 mg Enteric Coated Tablet PO SCH (09:00)
[2023-07-07] MEDS: Metoprolol Tartrate 50 MG TAB PO SCH (09:42)
[2023-07-07] MEDS: cloNIDine 0.2 MG TAB PO SCH ×2 (09:42→21:08)
[2023-07-07] MEDS: Amlodipine 5 MG TAB PO SCH (09:43)
[2023-07-07] MEDS: Ferrous Sulfate 325 MG TAB PO SCH ×2 (09:43→16:48)
[2023-07-07] MEDS: Empagliflozin 10 MG TAB PO SCH (09:44)
[2023-07-07] MEDS: Ezetimibe 10 MG TAB PO SCH (09:44)
[2023-07-07] MEDS: Furosemide 20 MG TAB PO SCH (09:44)
[2023-07-07] MEDS: Insulin Glargine 30 UNITS/0.3 ML VIAL SC SCH ×2 (09:45→21:45)
[2023-07-07] MEDS: Cefepime 1 GM in Sodium Chloride 0.9% 100 ML IVPB SCH ×2 (09:45→21:08)
[2023-07-07] MEDS ORDERED: Rosuvastatin 20 MG TAB PO SCH (21:00)
[2023-07-07] MEDS: Rosuvastatin 20 MG TAB PO SCH (21:08)
[2023-07-07] MEDS: Vancomycin 1 GM in Premix 1 BAG IVPB SCH (21:48)
[2023-07-08] MEDS: HumaLOG 300 UNITS/3 ML VIAL SC PRN ×3 (05:42→17:46)
[2023-07-08 05:45] LABS: #Eosinphils 0.1 thou/uL (0.0-0.7); #Monocytes 0.8 thou/uL (0.11-0.59); #Neutrophils 4.5 thou/uL (1.40-6.50); %Basophils 0.1 % (0.0-1.0); %Eosinophils 0.9 % (0.0-10.0); %Lymphocytes 21.9 % (21.0-51.0); %Monocytes 11.6 % (0.0-10.0); %Neutrophils 65.2 % (42.0-75.0); Hematocrit 22.6 % (42.0-52.0); Hemoglobin 7.4 g/dL (14.0-18.0); Mean Corpuscular HGB CONC 32.7 g/dL (32.0-36.0); Mean Corpuscular Hemoglobin 27.1 pg (27.0-31.0); Mean Corpuscular Volume 82.8 fl (78.0-98.0); Mean Platelet Volume 10.1 fL (7.4-10.4); Platelet Count 175 10x3/uL (130-400); Red Blood Cell (RBC) Count 2.73 mill/uL (4.70-6.10); White Blood Cell (WBC) Count 6.9 10x3/uL (4.8-10.8)
[2023-07-08 06:09] LABS: Anion Gap 11 mmol/L (10-20); BUN (Urea Nitrogen) 25 mg/dL (8.4-25.7); Calc. Creatinine Clearance 35 mL/min (70-130); Calcium 8.5 mg/dL (7.8-10.44); Carbon Dioxide 24 mmol/L (23-31); Chloride 103 mmol/L (98-107); Estimated GFR 35; Glucose 194 mg/dL (80-115); Potassium 4.1 mmol/L (3.5-5.1); Sodium 134 mmol/L (136-145)
[2023-07-08] MEDS: Sodium Chloride 0.9% 1,000 ML IV SCH ×2 (06:37→22:23)
[2023-07-08] MEDS: Cefepime 1 GM in Sodium Chloride 0.9% 100 ML IVPB SCH ×2 (09:13→22:23)
[2023-07-08] MEDS: Metoprolol Tartrate 50 MG TAB PO SCH (09:14)
[2023-07-08] MEDS: Empagliflozin 10 MG TAB PO SCH (09:14)
[2023-07-08] MEDS: Furosemide 20 MG TAB PO SCH (09:14)
[2023-07-08] MEDS: cloNIDine 0.2 MG TAB PO SCH ×2 (09:14→22:22)
[2023-07-08] MEDS: Ferrous Sulfate 325 MG TAB PO SCH (09:14)
[2023-07-08] MEDS: Amlodipine 5 MG TAB PO SCH (09:14)
[2023-07-08] MEDS: Insulin Glargine 30 UNITS/0.3 ML VIAL SC SCH ×2 (09:15→22:24)
[2023-07-08] MEDS: Ezetimibe 10 MG TAB PO SCH (09:15)
[2023-07-08] MEDS: GoLYTELY 4,000 ml Bottle PO SCH (22:21)
[2023-07-08] MEDS: Rosuvastatin 20 MG TAB PO SCH (22:23)
[2023-07-09 06:08] LABS: #Monocytes 0.6 thou/uL (0.11-0.59); #Neutrophils 6.9 thou/uL (1.40-6.50); %Basophils 0.2 % (0.0-1.0); %Eosinophils 0.3 % (0.0-10.0); %Lymphocytes 16.5 % (21.0-51.0); %Monocytes 6.7 % (0.0-10.0); Hematocrit 25.1 % (42.0-52.0); Hemoglobin 8.2 g/dL (14.0-18.0); Mean Corpuscular HGB CONC 32.7 g/dL (32.0-36.0); Mean Corpuscular Hemoglobin 26.5 pg (27.0-31.0); Mean Corpuscular Volume 81.2 fl (78.0-98.0); Mean Platelet Volume 10.5 fL (7.4-10.4); Platelet Count 222 10x3/uL (130-400); RBC Distribution Width 16.4 % (11.5-14.5); Red Blood Cell (RBC) Count 3.09 mill/uL (4.70-6.10); White Blood Cell (WBC) Count 9.1 10x3/uL (4.8-10.8)
[2023-07-09 06:30] LABS: Anion Gap 14 mmol/L (10-20); BUN (Urea Nitrogen) 22 mg/dL (8.4-25.7); Calc. Creatinine Clearance 43 mL/min (70-130); Calcium 8.5 mg/dL (7.8-10.44); Carbon Dioxide 22 mmol/L (23-31); Chloride 104 mmol/L (98-107); Estimated GFR 45; Glucose 101 mg/dL (80-115); Potassium 3.8 mmol/L (3.5-5.1); Sodium 136 mmol/L (136-145)
[2023-07-09] MEDS: Metoprolol Tartrate 50 MG TAB PO SCH (07:20)
[2023-07-09] MEDS: Insulin Glargine 30 UNITS/0.3 ML VIAL SC SCH ×2 (07:30→21:48)
[2023-07-09] MEDS ORDERED: PROPOFOL 200 MG/20 ML VIAL ONE (08:33)
[2023-07-09] MEDS ORDERED: Glycopyrrolate 0.2 MG/ML 5 ML SYRINGE ONE (08:33)
[2023-07-09] MEDS ORDERED: Ondansetron HCl/PF 4 MG/2 ML Vial IVP PRN (09:14)
[2023-07-09] MEDS ORDERED: Promethazine HCl 25 MG/ML VIAL IM PRN (09:14)
[2023-07-09] MEDS: Cefepime 1 GM in Sodium Chloride 0.9% 100 ML IVPB SCH ×2 (10:11→22:56)
[2023-07-09] MEDS: Furosemide 20 MG TAB PO SCH (10:11)
[2023-07-09] MEDS: Amlodipine 5 MG TAB PO SCH (10:11)
[2023-07-09] MEDS: Ezetimibe 10 MG TAB PO SCH (10:11)
[2023-07-09] MEDS: cloNIDine 0.2 MG TAB PO SCH ×2 (10:11→19:54)
[2023-07-09] MEDS: Linezolid 600 MG in Premix 1 BAG IVPB SCH ×2 (10:11→19:54)
[2023-07-09] MEDS: Empagliflozin 10 MG TAB PO SCH (10:12)
[2023-07-09] MEDS: Sodium Chloride 0.9% 1,000 ML IV SCH (10:12)
[2023-07-09] MEDS: HumaLOG 300 UNITS/3 ML VIAL SC PRN ×2 (13:21→18:33)
[2023-07-09] MEDS: Rosuvastatin 20 MG TAB PO SCH (19:55)
[2023-07-09] MEDS: GoLYTELY 4,000 ml Bottle PO SCH (20:03)
[2023-07-09] MEDS: Acetaminophen 325 MG TAB PO PRN (21:45)
[2023-07-10] MEDS: Sodium Chloride 0.9% 1,000 ML IV SCH ×2 (00:10→10:12)
[2023-07-10] MEDS: Metoprolol Tartrate 50 MG TAB PO SCH (05:13)
[2023-07-10] MEDS ORDERED: Sevoflurane 250 ML INH ANEST BOTTLE ONE (06:15)
[2023-07-10] MEDS ORDERED: fentaNYL 50 mcg/mL 1 mL Vial ONE ×2 (06:53→09:24)
[2023-07-10] MEDS ORDERED: Sodium Chloride 0.9% 100 ML ONE (07:49)
[2023-07-10] MEDS ORDERED: CEFAZOLIN 2 GM VIAL ONE (07:49)
[2023-07-10] MEDS ORDERED: Lidocaine 1% PF 5 ML VIAL ONE (08:05)
[2023-07-10] MEDS ORDERED: Ondansetron PF 4 MG/2 ML Vial ONE (08:05)
[2023-07-10] MEDS ORDERED: Ketorolac Tromethamine 30 MG/ML VIAL ONE (08:05)
[2023-07-10] MEDS ORDERED: PHENYLEPHRINE-NS 100 MCG/ML 10 ML SYRINGE ONE (08:05)
[2023-07-10] MEDS ORDERED: PROPOFOL 200 MG/20 ML VIAL ONE (08:05)
[2023-07-10] MEDS ORDERED: Bupivacaine 0.25% HCL 30 ML VIAL ONE (08:21)
[2023-07-10] MEDS ORDERED: traMADol HCl 50 MG TAB PO PRN (09:23)
[2023-07-10] MEDS: Linezolid 600 MG in Premix 1 BAG IVPB SCH ×2 (10:12→19:41)
[2023-07-10] MEDS: Cefepime 1 GM in Sodium Chloride 0.9% 100 ML IVPB SCH ×2 (10:13→21:10)
[2023-07-10] MEDS: Amlodipine 5 MG TAB PO SCH (10:14)
[2023-07-10] MEDS: Ezetimibe 10 MG TAB PO SCH (10:14)
[2023-07-10] MEDS: Empagliflozin 10 MG TAB PO SCH (10:15)
[2023-07-10] MEDS: cloNIDine 0.2 MG TAB PO SCH ×2 (10:15→19:40)
[2023-07-10] MEDS: Furosemide 20 MG TAB PO SCH (10:15)
[2023-07-10] MEDS: Insulin Glargine 30 UNITS/0.3 ML VIAL SC SCH ×2 (10:15→19:42)
[2023-07-10] MEDS: HumaLOG 300 UNITS/3 ML VIAL SC PRN ×2 (12:57→18:15)
[2023-07-10] MEDS: Gabapentin 300 MG CAP PO SCH (19:41)
[2023-07-10] MEDS: Rosuvastatin 20 MG TAB PO SCH (19:41)
[2023-07-10] MEDS: GoLYTELY 4,000 ml Bottle PO SCH (19:46)
[2023-07-11] MEDS: Sodium Chloride 0.9% 1,000 ML IV SCH ×2 (00:48→15:31)
[2023-07-11] MEDS: Ezetimibe 10 MG TAB PO SCH (08:20)
[2023-07-11] MEDS: Gabapentin 300 MG CAP PO SCH ×2 (08:20→20:38)
[2023-07-11] MEDS: Empagliflozin 10 MG TAB PO SCH (08:21)
[2023-07-11] MEDS: Furosemide 20 MG TAB PO SCH (08:21)
[2023-07-11] MEDS: Metoprolol Tartrate 50 MG TAB PO SCH (08:21)
[2023-07-11] MEDS: cloNIDine 0.2 MG TAB PO SCH ×2 (08:21→20:38)
[2023-07-11] MEDS: Amlodipine 5 MG TAB PO SCH (08:21)
[2023-07-11] MEDS: Linezolid 600 MG in Premix 1 BAG IVPB SCH ×2 (08:22→22:28)
[2023-07-11] MEDS: Insulin Glargine 30 UNITS/0.3 ML VIAL SC SCH ×2 (08:22→20:37)
[2023-07-11 09:51] LABS: Anion Gap 10 mmol/L (10-20); BUN (Urea Nitrogen) 18 mg/dL (8.4-25.7); Calc. Creatinine Clearance 37 mL/min (70-130); Calcium 8.2 mg/dL (7.8-10.44); Carbon Dioxide 22 mmol/L (23-31); Chloride 106 mmol/L (98-107); Estimated GFR 37; Glucose 208 mg/dL (80-115); Potassium 4.1 mmol/L (3.5-5.1); Sodium 134 mmol/L (136-145)
[2023-07-11] MEDS: Cefepime 1 GM in Sodium Chloride 0.9% 100 ML IVPB SCH ×2 (11:02→20:39)
[2023-07-11] MEDS: HumaLOG 300 UNITS/3 ML VIAL SC PRN (12:09)
[2023-07-11] MEDS: GoLYTELY 4,000 ml Bottle PO SCH (20:39)
[2023-07-11] MEDS: Rosuvastatin 20 MG TAB PO SCH (20:39)
[2023-07-12] MEDS: Acetaminophen 325 MG TAB PO PRN ×2 (03:53→19:22)
[2023-07-12] MEDS: Linezolid 600 MG in Premix 1 BAG IVPB SCH ×2 (08:24→19:30)
[2023-07-12] MEDS: Insulin Glargine 30 UNITS/0.3 ML VIAL SC SCH ×2 (08:26→21:21)
[2023-07-12] MEDS: Empagliflozin 10 MG TAB PO SCH (08:27)
[2023-07-12] MEDS: Metoprolol Tartrate 50 MG TAB PO SCH (08:27)
[2023-07-12] MEDS: Furosemide 20 MG TAB PO SCH (08:27)
[2023-07-12] MEDS: cloNIDine 0.2 MG TAB PO SCH ×2 (08:27→21:19)
[2023-07-12] MEDS: Amlodipine 5 MG TAB PO SCH (08:27)
[2023-07-12] MEDS: Gabapentin 300 MG CAP PO SCH ×2 (08:27→21:19)
[2023-07-12] MEDS: Ezetimibe 10 MG TAB PO SCH (08:27)
[2023-07-12] MEDS: Sodium Chloride 0.9% 1,000 ML IV SCH ×3 (08:28→21:26)
[2023-07-12] MEDS: Cefepime 1 GM in Sodium Chloride 0.9% 100 ML IVPB SCH ×2 (10:23→21:18)
[2023-07-12] MEDS: HumaLOG 300 UNITS/3 ML VIAL SC PRN (13:00)
[2023-07-12] MEDS: metroNIDAZOLE 500 MG TAB PO SCH ×2 (15:10→21:19)
[2023-07-12] MEDS: Rosuvastatin 20 MG TAB PO SCH (21:19)
[2023-07-13] MEDS: Acetaminophen 325 MG TAB PO PRN (00:26)
[2023-07-13] MEDS ORDERED: Heparin 10,000 UNITS/ 10 ML VIAL ONE ×2 (06:01→08:39)
[2023-07-13] MEDS ORDERED: Lidocaine 1% (PF) 30 ML VIAL ONE (06:01)
[2023-07-13] MEDS: Metoprolol Tartrate 50 MG TAB PO SCH (06:04)
[2023-07-13 06:55] LABS: Hematocrit 25.4 % (42.0-52.0); Hemoglobin 8.1 g/dL (14.0-18.0); Mean Corpuscular HGB CONC 31.9 g/dL (32.0-36.0); Mean Corpuscular Volume 81.7 fl (78.0-98.0); Mean Platelet Volume 9.8 fL (7.4-10.4); Platelet Count 328 10x3/uL (130-400); RBC Distribution Width 16.4 % (11.5-14.5); Red Blood Cell (RBC) Count 3.11 mill/uL (4.70-6.10); White Blood Cell (WBC) Count 11.5 10x3/uL (4.8-10.8)
[2023-07-13] MEDS ORDERED: fentaNYL 50 mcg/mL 1 mL Vial ONE (07:12)
[2023-07-13] MEDS ORDERED: Midazolam HCl 2 mg/2 ml Vial ONE (07:12)
[2023-07-13 07:29] LABS: Anion Gap 14 mmol/L (10-20); BUN (Urea Nitrogen) 26 mg/dL (8.4-25.7); Calc. Creatinine Clearance 40 mL/min (70-130); Calcium 8.3 mg/dL (7.8-10.44); Carbon Dioxide 21 mmol/L (23-31); Chloride 105 mmol/L (98-107); Estimated GFR 41; Glucose 64 mg/dL (80-115); Potassium 3.1 mmol/L (3.5-5.1); Sodium 137 mmol/L (136-145)
[2023-07-13] MEDS ORDERED: Potassium Chloride 20 MEQ TAB PO SCH (08:30)
[2023-07-13] MEDS ORDERED: Potassium Chloride 20 MEQ in Premix 1 BAG IVPB SCH (09:00)
[2023-07-13] MEDS ORDERED: Clopidogrel Bisulfate 300 MG TAB ONE (09:31)
[2023-07-13] MEDS ORDERED: Protamine Sulfate 50 MG/5 ML VIAL ONE (09:31)
[2023-07-13] MEDS ORDERED: Aspirin 325 MG TAB PO SCH (10:26)
[2023-07-13] MEDS: metroNIDAZOLE 500 MG TAB PO SCH ×3 (12:12→20:35)
[2023-07-13] MEDS: Linezolid 600 MG in Premix 1 BAG IVPB SCH ×2 (12:30→20:36)
[2023-07-13] MEDS: Cefepime 1 GM in Sodium Chloride 0.9% 100 ML IVPB SCH ×2 (12:31→23:08)
[2023-07-13] MEDS: Empagliflozin 10 MG TAB PO SCH (13:08)
[2023-07-13] MEDS: Amlodipine 5 MG TAB PO SCH (13:08)
[2023-07-13] MEDS: cloNIDine 0.2 MG TAB PO SCH ×2 (13:08→20:36)
[2023-07-13] MEDS: Gabapentin 300 MG CAP PO SCH ×2 (13:09→20:35)
[2023-07-13] MEDS: Ezetimibe 10 MG TAB PO SCH (13:09)
[2023-07-13] MEDS: Insulin Glargine 30 UNITS/0.3 ML VIAL SC SCH ×2 (13:09→20:37)
[2023-07-13] MEDS ORDERED: Iopamidol 370 76% 100 ML VIAL ONE (13:50)
[2023-07-13] MEDS: Sodium Chloride 0.9% 1,000 ML IV SCH (15:26)
[2023-07-13] MEDS: Rosuvastatin 20 MG TAB PO SCH (20:36)
[2023-07-14] MEDS: Sodium Chloride 0.9% 1,000 ML IV SCH ×2 (03:20→14:46)
[2023-07-14 05:55] LABS: #Monocytes 0.4 thou/uL (0.11-0.59); #Neutrophils 6.8 thou/uL (1.40-6.50); %Basophils 0.4 % (0.0-1.0); %Eosinophils 0.4 % (0.0-10.0); %Lymphocytes 13.8 % (21.0-51.0); %Neutrophils 79.9 % (42.0-75.0); Hematocrit 23.3 % (42.0-52.0); Hemoglobin 7.6 g/dL (14.0-18.0); Mean Corpuscular HGB CONC 32.6 g/dL (32.0-36.0); Mean Corpuscular Hemoglobin 26.1 pg (27.0-31.0); Mean Corpuscular Volume 80.1 fl (78.0-98.0); Mean Platelet Volume 10.2 fL (7.4-10.4); Platelet Count 317 10x3/uL (130-400); RBC Distribution Width 16.3 % (11.5-14.5); Red Blood Cell (RBC) Count 2.91 mill/uL (4.70-6.10); White Blood Cell (WBC) Count 8.5 10x3/uL (4.8-10.8)
[2023-07-14 06:22] LABS: Anion Gap 11 mmol/L (10-20); BUN (Urea Nitrogen) 26 mg/dL (8.4-25.7); Calc. Creatinine Clearance 46 mL/min (70-130); Calcium 8.2 mg/dL (7.8-10.44); Carbon Dioxide 23 mmol/L (23-31); Chloride 103 mmol/L (98-107); Estimated GFR 49; Glucose 177 mg/dL (80-115); Potassium 4.2 mmol/L (3.5-5.1); Sodium 133 mmol/L (136-145)
[2023-07-14] MEDS: Linezolid 600 MG in Premix 1 BAG IVPB SCH ×2 (08:30→20:34)
[2023-07-14] MEDS: Insulin Glargine 30 UNITS/0.3 ML VIAL SC SCH ×2 (08:30→20:35)
[2023-07-14] MEDS: Metoprolol Tartrate 50 MG TAB PO SCH (08:31)
[2023-07-14] MEDS: metroNIDAZOLE 500 MG TAB PO SCH ×3 (08:31→20:34)
[2023-07-14] MEDS: Amlodipine 5 MG TAB PO SCH (08:31)
[2023-07-14] MEDS: Empagliflozin 10 MG TAB PO SCH (08:31)
[2023-07-14] MEDS: Gabapentin 300 MG CAP PO SCH ×2 (08:31→20:34)
[2023-07-14] MEDS: Aspirin 81 mg Enteric Coated Tablet PO SCH (08:31)
[2023-07-14] MEDS: cloNIDine 0.2 MG TAB PO SCH ×2 (08:32→20:34)
[2023-07-14] MEDS: Ezetimibe 10 MG TAB PO SCH (08:32)
[2023-07-14] MEDS: Clopidogrel Bisulfate 75 MG TAB PO SCH (08:32)
[2023-07-14] MEDS: Cefepime 1 GM in Sodium Chloride 0.9% 100 ML IVPB SCH ×2 (11:45→22:40)
[2023-07-14] MEDS: Rosuvastatin 20 MG TAB PO SCH (20:34)
[2023-07-15] MEDS: Sodium Chloride 0.9% 1,000 ML IV SCH (05:59)
[2023-07-15 06:32] LABS: Hematocrit 20.2 % (42.0-52.0); Hemoglobin 6.6 g/dL (14.0-18.0); Mean Corpuscular HGB CONC 32.7 g/dL (32.0-36.0); Mean Corpuscular Hemoglobin 26.4 pg (27.0-31.0); Mean Corpuscular Volume 80.8 fl (78.0-98.0); Mean Platelet Volume 9.9 fL (7.4-10.4); Platelet Count 281 10x3/uL (130-400); RBC Distribution Width 16.6 % (11.5-14.5); White Blood Cell (WBC) Count 8.6 10x3/uL (4.8-10.8)
[2023-07-15] MEDS: Amlodipine 5 MG TAB PO SCH (09:26)
[2023-07-15] MEDS: Metoprolol Tartrate 50 MG TAB PO SCH (09:27)
[2023-07-15] MEDS: Gabapentin 300 MG CAP PO SCH ×2 (09:45→20:31)
[2023-07-15] MEDS: Ezetimibe 10 MG TAB PO SCH (09:45)
[2023-07-15] MEDS: Cefepime 1 GM in Sodium Chloride 0.9% 100 ML IVPB SCH ×2 (09:46→21:25)
[2023-07-15] MEDS: Aspirin 81 mg Enteric Coated Tablet PO SCH (09:46)
[2023-07-15] MEDS: metroNIDAZOLE 500 MG TAB PO SCH ×3 (09:46→20:31)
[2023-07-15] MEDS: Empagliflozin 10 MG TAB PO SCH (09:46)
[2023-07-15] MEDS: Clopidogrel Bisulfate 75 MG TAB PO SCH (09:46)
[2023-07-15] MEDS: Insulin Glargine 30 UNITS/0.3 ML VIAL SC SCH ×2 (09:46→20:31)
[2023-07-15] MEDS ORDERED: Polyethylene Glycol 3350 17 GM Packet PO PRN (11:25)
[2023-07-15] MEDS: cloNIDine 0.2 MG TAB PO SCH ×2 (11:58→20:30)
[2023-07-15] MEDS: Linezolid 600 MG in Premix 1 BAG IVPB SCH (14:28)
[2023-07-15 16:58] LABS: Hematocrit 22.6 % (42.0-52.0); Hemoglobin 7.6 g/dL (14.0-18.0)
[2023-07-15] MEDS: Rosuvastatin 20 MG TAB PO SCH (20:30)
[2023-07-16 08:28] LABS: Hematocrit 24.6 % (42.0-52.0); Hemoglobin 8.3 g/dL (14.0-18.0); Mean Corpuscular HGB CONC 33.7 g/dL (32.0-36.0); Mean Corpuscular Hemoglobin 27.7 pg (27.0-31.0); Mean Platelet Volume 9.7 fL (7.4-10.4); Platelet Count 255 10x3/uL (130-400); White Blood Cell (WBC) Count 7.3 10x3/uL (4.8-10.8)
[2023-07-16 08:53] LABS: Anion Gap 13 mmol/L (10-20); BUN (Urea Nitrogen) 27 mg/dL (8.4-25.7); Calc. Creatinine Clearance 49 mL/min (70-130); Calcium 8.1 mg/dL (7.8-10.44); Carbon Dioxide 22 mmol/L (23-31); Chloride 106 mmol/L (98-107); Estimated GFR 53; Glucose 60 mg/dL (80-115); Potassium 3.6 mmol/L (3.5-5.1); Sodium 137 mmol/L (136-145)
[2023-07-16] MEDS ORDERED: Docusate 100 MG CAP PO PRN (09:00)
[2023-07-16] MEDS: Cefepime 1 GM in Sodium Chloride 0.9% 100 ML IVPB SCH ×2 (09:43→21:52)
[2023-07-16] MEDS: Aspirin 81 mg Enteric Coated Tablet PO SCH (09:44)
[2023-07-16] MEDS: Metoprolol Tartrate 50 MG TAB PO SCH (09:44)
[2023-07-16] MEDS: metroNIDAZOLE 500 MG TAB PO SCH ×3 (09:44→20:22)
[2023-07-16] MEDS: Ezetimibe 10 MG TAB PO SCH (09:44)
[2023-07-16] MEDS: Amlodipine 5 MG TAB PO SCH (09:44)
[2023-07-16] MEDS: cloNIDine 0.2 MG TAB PO SCH ×3 (09:44→21:55)
[2023-07-16] MEDS: Clopidogrel Bisulfate 75 MG TAB PO SCH (09:44)
[2023-07-16] MEDS: Empagliflozin 10 MG TAB PO SCH (09:44)
[2023-07-16] MEDS: Gabapentin 300 MG CAP PO SCH ×3 (09:45→21:47)
[2023-07-16] MEDS: Insulin Glargine 30 UNITS/0.3 ML VIAL SC SCH ×2 (09:46→20:23)
[2023-07-16] MEDS: Rosuvastatin 20 MG TAB PO SCH (20:22)
[2023-07-16] MEDS ORDERED: Communication Order-Pharmacy FS SCH (21:47)
[2023-07-17 07:23] LABS: Hematocrit 27.5 % (42.0-52.0); Mean Corpuscular HGB CONC 32.7 g/dL (32.0-36.0); Mean Corpuscular Hemoglobin 26.6 pg (27.0-31.0); Mean Corpuscular Volume 81.4 fl (78.0-98.0); Mean Platelet Volume 9.8 fL (7.4-10.4); Platelet Count 267 10x3/uL (130-400); RBC Distribution Width 17.1 % (11.5-14.5); Red Blood Cell (RBC) Count 3.38 mill/uL (4.70-6.10); White Blood Cell (WBC) Count 8.5 10x3/uL (4.8-10.8)
[2023-07-17] MEDS ORDERED: Cefepime 1 GM in Sodium Chloride 0.9% 100 ML IVPB SCH (10:00)
[2023-07-17] MEDS ORDERED: Dextrose 50% Abboject 50 ML SYRINGE ONE (11:15)
[2023-07-17] MEDS ORDERED: fentaNYL 50 mcg/mL 1 mL Vial ONE (11:29)
[2023-07-17] MEDS ORDERED: Sodium Chloride 0.9% 100 ML ONE (11:43)
[2023-07-17] MEDS ORDERED: CEFAZOLIN 2 GM VIAL ONE (11:43)
[2023-07-17] MEDS ORDERED: PHENYLEPHRINE-NS 100 MCG/ML 10 ML SYRINGE ONE (12:02)
[2023-07-17] MEDS ORDERED: Lidocaine 1% PF 5 ML VIAL ONE (12:02)
[2023-07-17] MEDS ORDERED: PROPOFOL 200 MG/20 ML VIAL ONE (12:02)
[2023-07-17] MEDS ORDERED: Bupivacaine 0.25% HCL 30 ML VIAL ONE (13:18)
[2023-07-17] MEDS ORDERED: Promethazine HCl 25 MG/ML VIAL IM PRN (13:40)
[2023-07-17] MEDS ORDERED: Ondansetron HCl/PF 4 MG/2 ML Vial IVP PRN (13:40)
[2023-07-17] MEDS ORDERED: Ondansetron PF 4 MG/2 ML Vial IVP PRN (15:15)
[2023-07-17] MEDS ORDERED: Glucagon 1 MG/ML KIT IM PRN (15:16)
[2023-07-17] MEDS ORDERED: Dextrose 5% in Water 1,000 ML IV PRN (15:16)
[2023-07-17] MEDS ORDERED: Dextrose 50% Abboject 50 ML SYRINGE SLOW IVP PRN (15:16)
[2023-07-17] MEDS ORDERED: HumaLOG 300 UNITS/3 ML VIAL SC PRN (15:17)
[2023-07-17] MEDS ORDERED: Docusate 100 MG CAP PO PRN (15:19)
[2023-07-17] MEDS ORDERED: Polyethylene Glycol 3350 17 GM Packet PO PRN (15:19)
[2023-07-17] MEDS: traMADol HCl 50 MG TAB PO PRN (19:13)
[2023-07-17] MEDS: metroNIDAZOLE 500 MG TAB PO SCH (20:56)
[2023-07-17] MEDS: Cefepime 1 GM in Sodium Chloride 0.9% 100 ML IVPB SCH (20:56)
[2023-07-17] MEDS: Gabapentin 300 MG CAP PO SCH (20:56)
[2023-07-17] MEDS: cloNIDine 0.2 MG TAB PO SCH (20:57)
[2023-07-17] MEDS: Rosuvastatin 20 MG TAB PO SCH (20:57)
[2023-07-17] MEDS: Acetaminophen 325 MG TAB PO PRN (21:00)
[2023-07-18] MEDS: Acetaminophen 325 MG TAB PO PRN ×3 (05:13→20:45)
[2023-07-18 06:16] LABS: Hematocrit 25.1 % (42.0-52.0); Hemoglobin 8.2 g/dL (14.0-18.0); Mean Corpuscular HGB CONC 32.7 g/dL (32.0-36.0); Mean Corpuscular Volume 82.6 fl (78.0-98.0); Platelet Count 237 10x3/uL (130-400); RBC Distribution Width 17.2 % (11.5-14.5); Red Blood Cell (RBC) Count 3.04 mill/uL (4.70-6.10); White Blood Cell (WBC) Count 9.1 10x3/uL (4.8-10.8)
[2023-07-18 06:40] LABS: Anion Gap 11 mmol/L (10-20); BUN (Urea Nitrogen) 24 mg/dL (8.4-25.7); Calc. Creatinine Clearance 45 mL/min (70-130); Carbon Dioxide 25 mmol/L (23-31); Chloride 105 mmol/L (98-107); Estimated GFR 48; Glucose 137 mg/dL (80-115); Potassium 3.8 mmol/L (3.5-5.1); Sodium 137 mmol/L (136-145)
[2023-07-18] MEDS: Gabapentin 300 MG CAP PO SCH ×2 (08:56→20:45)
[2023-07-18] MEDS: Ezetimibe 10 MG TAB PO SCH (08:56)
[2023-07-18] MEDS: Amlodipine 5 MG TAB PO SCH (08:56)
[2023-07-18] MEDS: cloNIDine 0.2 MG TAB PO SCH ×2 (08:56→20:44)
[2023-07-18] MEDS: metroNIDAZOLE 500 MG TAB PO SCH ×3 (08:57→20:44)
[2023-07-18] MEDS: traMADol HCl 50 MG TAB PO PRN (08:57)
[2023-07-18] MEDS: Cefepime 1 GM in Sodium Chloride 0.9% 100 ML IVPB SCH ×2 (08:57→20:46)
[2023-07-18] MEDS: Tamsulosin HCl 0.4 MG CAP PO SCH (08:57)
[2023-07-18] MEDS: Metoprolol Tartrate 50 MG TAB PO SCH (08:57)
[2023-07-18] MEDS: Rosuvastatin 20 MG TAB PO SCH (20:44)
[2023-07-19] MEDS: Gabapentin 300 MG CAP PO SCH ×2 (08:25→19:49)
[2023-07-19] MEDS: Tamsulosin HCl 0.4 MG CAP PO SCH (08:25)
[2023-07-19] MEDS: metroNIDAZOLE 500 MG TAB PO SCH ×3 (08:25→19:49)
[2023-07-19] MEDS: cloNIDine 0.2 MG TAB PO SCH ×2 (08:26→19:48)
[2023-07-19] MEDS: Metoprolol Tartrate 50 MG TAB PO SCH (08:26)
[2023-07-19] MEDS: Amlodipine 5 MG TAB PO SCH (08:26)
[2023-07-19] MEDS: Ezetimibe 10 MG TAB PO SCH (08:26)
[2023-07-19] MEDS: Cefepime 1 GM in Sodium Chloride 0.9% 100 ML IVPB SCH ×2 (10:05→22:10)
[2023-07-19] MEDS: traMADol HCl 50 MG TAB PO PRN (11:04)
[2023-07-19 11:27] LABS: #Eosinphils 0.1 thou/uL (0.0-0.7); #Monocytes 0.9 thou/uL (0.11-0.59); #Neutrophils 9.3 thou/uL (1.40-6.50); %Basophils 0.3 % (0.0-1.0); %Eosinophils 0.5 % (0.0-10.0); %Lymphocytes 11.3 % (21.0-51.0); %Monocytes 7.3 % (0.0-10.0); %Neutrophils 80.2 % (42.0-75.0); Hematocrit 24.9 % (42.0-52.0); Hemoglobin 8.1 g/dL (14.0-18.0); Mean Corpuscular HGB CONC 32.5 g/dL (32.0-36.0); Mean Corpuscular Hemoglobin 26.9 pg (27.0-31.0); Mean Corpuscular Volume 82.7 fl (78.0-98.0); Platelet Count 210 10x3/uL (130-400); RBC Distribution Width 17.5 % (11.5-14.5); Red Blood Cell (RBC) Count 3.01 mill/uL (4.70-6.10); White Blood Cell (WBC) Count 11.6 10x3/uL (4.8-10.8)
[2023-07-19 12:03] LABS: Anion Gap 14 mmol/L (10-20); BUN (Urea Nitrogen) 29 mg/dL (8.4-25.7); Calc. Creatinine Clearance 51 mL/min (70-130); Calcium 8.5 mg/dL (7.8-10.44); Carbon Dioxide 23 mmol/L (23-31); Chloride 103 mmol/L (98-107); Estimated GFR 55; Glucose 163 mg/dL (80-115); Potassium 4.2 mmol/L (3.5-5.1); Sodium 136 mmol/L (136-145)
[2023-07-19] MEDS: HumaLOG 300 UNITS/3 ML VIAL SC PRN (16:34)
[2023-07-19] MEDS: Rosuvastatin 20 MG TAB PO SCH (19:48)
[2023-07-20] MEDS: HumaLOG 300 UNITS/3 ML VIAL SC PRN ×3 (05:34→16:51)
[2023-07-20 06:42] LABS: #Basophils 0.1 thou/uL (0.0-0.2); #Eosinphils 0.1 thou/uL (0.0-0.7); #Neutrophils 7.3 thou/uL (1.40-6.50); %Basophils 0.5 % (0.0-1.0); %Eosinophils 1.4 % (0.0-10.0); %Lymphocytes 15.7 % (21.0-51.0); %Monocytes 9.6 % (0.0-10.0); %Neutrophils 72.2 % (42.0-75.0); Hematocrit 23.3 % (42.0-52.0); Hemoglobin 7.5 g/dL (14.0-18.0); Mean Corpuscular HGB CONC 32.2 g/dL (32.0-36.0); Mean Corpuscular Hemoglobin 26.8 pg (27.0-31.0); Mean Corpuscular Volume 83.2 fl (78.0-98.0); Mean Platelet Volume 10.3 fL (7.4-10.4); Platelet Count 178 10x3/uL (130-400); RBC Distribution Width 17.4 % (11.5-14.5); White Blood Cell (WBC) Count 10.1 10x3/uL (4.8-10.8)
[2023-07-20 07:06] LABS: Anion Gap 12 mmol/L (10-20); BUN (Urea Nitrogen) 36 mg/dL (8.4-25.7); Calc. Creatinine Clearance 55 mL/min (70-130); Calcium 8.3 mg/dL (7.8-10.44); Carbon Dioxide 23 mmol/L (23-31); Chloride 103 mmol/L (98-107); Estimated GFR 60; Glucose 192 mg/dL (80-115); Potassium 4.3 mmol/L (3.5-5.1); Sodium 134 mmol/L (136-145)
[2023-07-20] MEDS: Amlodipine 5 MG TAB PO SCH (09:02)
[2023-07-20] MEDS: metroNIDAZOLE 500 MG TAB PO SCH ×2 (09:02→14:58)
[2023-07-20] MEDS: cloNIDine 0.2 MG TAB PO SCH (09:02)
[2023-07-20] MEDS: Metoprolol Tartrate 50 MG TAB PO SCH (09:02)
[2023-07-20] MEDS: Cefepime 1 GM in Sodium Chloride 0.9% 100 ML IVPB SCH (09:03)
[2023-07-20] MEDS: Tamsulosin HCl 0.4 MG CAP PO SCH (09:03)
[2023-07-20] MEDS: Ezetimibe 10 MG TAB PO SCH (09:03)
[2023-07-20] MEDS: Gabapentin 300 MG CAP PO SCH (09:03)
[2023-07-20 16:45] VITALS: BP 128/71; TEMP 97.9
== END 2023-07-20 18:31 | DRG 240 ==
LOC: ERS 14:04 → T4-A 18:18 → INTOOBSV 18:18 → OBSVTOIN 19:49
PROVIDERS: ADMIT Internal Medicine; ATTEND Internal Medicine
PROC: 0DJ08ZZ Inspection of Upper Intestinal Tract, Via Natural or Artificial Opening Endoscopic (ICD-10-PCS; principal; 2023-07-09)
PROC: 0DBL8ZZ Excision of Transverse Colon, Via Natural or Artificial Opening Endoscopic (ICD-10-PCS; 2023-07-09)
PROC: 0Y6M0ZB Detachment at Right Foot, Partial 2nd Ray, Open Approach (ICD-10-PCS; 2023-07-10)
PROC: 04FK3ZZ Fragmentation of Right Femoral Artery, Percutaneous Approach (ICD-10-PCS; 2023-07-13)
PROC: 04FM3ZZ Fragmentation of Right Popliteal Artery, Percutaneous Approach (ICD-10-PCS; 2023-07-13)
PROC: 047P3ZZ Dilation of Right Anterior Tibial Artery, Percutaneous Approach (ICD-10-PCS; 2023-07-13)
PROC: 047M3ZZ Dilation of Right Popliteal Artery, Percutaneous Approach (ICD-10-PCS; 2023-07-13)
PROC: B41G1ZZ Fluoroscopy of Left Lower Extremity Arteries using Low Osmolar Contrast (ICD-10-PCS; 2023-07-13)
PROC: B41G1ZZ Fluoroscopy of Left Lower Extremity Arteries using Low Osmolar Contrast (ICD-10-PCS; 2023-07-13)
PROC: B41F1ZZ Fluoroscopy of Right Lower Extremity Arteries using Low Osmolar Contrast (ICD-10-PCS; 2023-07-13)
PROC: 30233N1 Transfusion of Nonautologous Red Blood Cells into Peripheral Vein, Percutaneous Approach (ICD-10-PCS; 2023-07-15)
PROC: 0Y6M0Z9 Detachment at Right Foot, Partial 1st Ray, Open Approach (ICD-10-PCS; 2023-07-17)
PROC: 0Y6M0ZB Detachment at Right Foot, Partial 2nd Ray, Open Approach (ICD-10-PCS; 2023-07-17)
PROC: 0Y6M0ZC Detachment at Right Foot, Partial 3rd Ray, Open Approach (ICD-10-PCS; 2023-07-17)
PROC: 0Y6M0ZD Detachment at Right Foot, Partial 4th Ray, Open Approach (ICD-10-PCS; 2023-07-17)
PROC: 0Y6M0ZF Detachment at Right Foot, Partial 5th Ray, Open Approach (ICD-10-PCS; 2023-07-17)
PROC: 0QBN0ZZ Excision of Right Metatarsal, Open Approach (ICD-10-PCS; 2023-07-17)
DX: E11.52 Type 2 diabetes mellitus with diabetic peripheral angiopathy with gangrene (principal); E87.1 Hypo-osmolality and hyponatremia; L03.115 Cellulitis of right lower limb; N17.9 Acute kidney failure, unspecified; K21.00 Gastro-esophageal reflux disease with esophagitis, without bleeding; Z88.8 Allergy status to other drugs, medicaments and biological substances; Z79.82 Long term (current) use of aspirin; Z79.899 Other long term (current) drug therapy; E78.00 Pure hypercholesterolemia, unspecified; Z95.1 Presence of aortocoronary bypass graft; I25.10 Atherosclerotic heart disease of native coronary artery without angina pectoris; E11.22 Type 2 diabetes mellitus with diabetic chronic kidney disease; I12.9 Hypertensive chronic kidney disease with stage 1 through stage 4 chronic kidney disease, or unspecified chronic kidney disease; Z79.4 Long term (current) use of insulin; Z83.3 Family history of diabetes mellitus; E11.621 Type 2 diabetes mellitus with foot ulcer; K57.90 Diverticulosis of intestine, part unspecified, without perforation or abscess without bleeding; K64.8 Other hemorrhoids; D50.9 Iron deficiency anemia, unspecified; N18.30 Chronic kidney disease, stage 3 unspecified; D63.1 Anemia in chronic kidney disease; R33.8 Other retention of urine
CPT/HCPCS: 36415; 36416; 36430; 37224; 37228; 75635; 75710; 80048; 80053; 82274; 83036; 83540; 83550; 85025; 85027; 85347; 85610; 85730; 86850; 86900; 86901; 87081; 88305; 88307; 88311; 93923; 97139; 99152; 99153; C1725; C1769; C1887; C1894; J0692; J1644; J1815; J1885; J2001; J2020; J2250; J2405; J2704; J2720; J3010; J3370-JW; J3480; J3490; J7050; J7070; J7999; P9016; Q9967; S0020

== ENCOUNTER 2023-08-01 14:17 | Inpatient (IN) | payer MEDICARE ==
[2023-08-01 14:57] LABS: #Monocytes 0.8 thou/uL (0.11-0.59); #Neutrophils 16.9 thou/uL (1.40-6.50); %Basophils 0.2 % (0.0-1.0); %Lymphocytes 4.5 % (21.0-51.0); %Monocytes 4.4 % (0.0-10.0); Hematocrit 24.3 % (42.0-52.0); Hemoglobin 7.9 g/dL (14.0-18.0); Mean Corpuscular HGB CONC 32.5 g/dL (32.0-36.0); Mean Corpuscular Hemoglobin 25.9 pg (27.0-31.0); Mean Corpuscular Volume 79.7 fl (78.0-98.0); Mean Platelet Volume 9.8 fL (7.4-10.4); Platelet Count 433 10x3/uL (130-400); RBC Distribution Width 18.4 % (11.5-14.5); Red Blood Cell (RBC) Count 3.05 mill/uL (4.70-6.10); White Blood Cell (WBC) Count 18.7 10x3/uL (4.8-10.8)
[2023-08-01 15:22] LABS: ALT (SGPT) 12 U/L (8-55); AST (SGOT) 32 U/L (5-34); Albumin 3.2 g/dL (3.4-4.8); Alkaline Phosphatase 128 U/L (40-110); Anion Gap 12 mmol/L (10-20); BUN (Urea Nitrogen) 26 mg/dL (8.4-25.7); Bilirubin, Total 0.4 mg/dL (0.2-1.2); Calc. Creatinine Clearance 0 mL/min (70-130); Calcium 8.1 mg/dL (7.8-10.44); Carbon Dioxide 23 mmol/L (23-31); Chloride 101 mmol/L (98-107); Estimated GFR 47; Globulin 3.1 g/dL (2.4-3.5); Glucose 242 mg/dL (80-115); Magnesium 2.2 mg/dL (1.6-2.6); Potassium 3.7 mmol/L (3.5-5.1); Protein, Total 6.3 g/dL (5.8-8.1); Sodium 132 mmol/L (136-145)
[2023-08-01 15:25] LABS: Troponin I 0.061 ng/mL (< 0.028)
[2023-08-01 16:28] LABS: Bacteria/HPF None Seen HPF (None Seen); Bilirubin Negative (Negative); Blood, Urine 3+ (Negative); CAUTI Indications for Culture Alt mental st,lethar; Clarity Turbid (Clear); Glucose, Urine (Dipstick) Greater than 1000 mg/dL (Negative); Ketone, Urine Negative (Negative); Leukocyte 500 Leu/uL (Negative); Nitrite 2+ (Negative); Protein, Urine (Dipstick) 100 mg/dL (Neg-Trace); RBC/HPF Greater than 50 HPF (0-3); Specific Gravity, Urine 1.015 (1.002-1.036); Squamous Epithelial None Seen HPF (0-3); Urobilinogen Normal mg/dL (Less than 2); WBC/HPF Greater than 50 HPF (0-3); Yeast-Budding 2+ HPF (None Seen)
[2023-08-01 16:30] LABS: Urine Culture Reflex Yes Yes
[2023-08-01] MEDS ORDERED: Cefepime 2 GM VIAL ONE (17:34)
[2023-08-01] MEDS ORDERED: Sodium Chloride 0.9% 100 ML ONE (17:34)
[2023-08-01] MEDS ORDERED: Furosemide 40 MG/4 ML VIAL ONE (17:34)
[2023-08-01] MEDS ORDERED: Aspirin Chewable 81 MG TAB ONE (17:34)
[2023-08-01] MEDS ORDERED: Vancomycin (BATCH) 1.25 GM in Premix 1 BAG IVPB SCH (17:45)
[2023-08-01] MEDS ORDERED: Glucagon 1 MG/ML KIT IM PRN (18:41)
[2023-08-01] MEDS ORDERED: Dextrose 50% Abboject 50 ML SYRINGE SLOW IVP PRN (18:41)
[2023-08-01] MEDS ORDERED: Ondansetron ODT 4 MG TAB PO PRN (18:41)
[2023-08-01] MEDS ORDERED: Dextrose 5% in Water 1,000 ML IV PRN (18:41)
[2023-08-01] MEDS ORDERED: Labetalol HCl 100 MG/20 ML VIAL SLOW IVP PRN (18:41)
[2023-08-01] MEDS ORDERED: Acetaminophen 650 MG Suppository PR PRN (18:41)
[2023-08-01] MEDS ORDERED: Ondansetron PF 4 MG/2 ML Vial IVP PRN (18:41)
[2023-08-01 18:52] LABS: Acetaminophen Less than 10 mcg/mL (10.0-30.0); Alcohol Less than 10.0 mg/dL (Less than 10); Salicylate Less than 8.0 mg/dL (15.0-30.0)
[2023-08-01 20:39] LABS: Amphetamine Not Detected (NotDetected); Barbiturates Screen Not Detected (NotDetected); Benzodiazepine Screen Not Detected (NotDetected); Cocaine Metabolite Screen Not Detected (NotDetected); Methadone Not Detected (NotDetected); Methamphetamine Not Detected (NotDetected); Opiate Screen Not Detected (NotDetected); Oxycodone Screen Not Detected (NotDetected); Phencyclidine (PCP) Not Detected (NotDetected); THC/Cannabinoid Screen Not Detected (NotDetected); Tricyclic Screen Not Detected (NotDetected)
[2023-08-02] MEDS ORDERED: metroNIDAZOLE 500 MG in Premix 1 BAG IVPB SCH (00:30)
[2023-08-02 05:33] LABS: #Neutrophils 15.9 thou/uL (1.40-6.50); %Basophils 0.2 % (0.0-1.0); %Eosinophils 0.1 % (0.0-10.0); %Lymphocytes 8.4 % (21.0-51.0); %Monocytes 5.5 % (0.0-10.0); %Neutrophils 85.4 % (42.0-75.0); Hematocrit 23.4 % (42.0-52.0); Hemoglobin 7.3 g/dL (14.0-18.0); Mean Corpuscular HGB CONC 31.2 g/dL (32.0-36.0); Mean Corpuscular Hemoglobin 24.7 pg (27.0-31.0); Mean Corpuscular Volume 79.3 fl (78.0-98.0); Mean Platelet Volume 9.7 fL (7.4-10.4); Platelet Count 401 10x3/uL (130-400); RBC Distribution Width 18.4 % (11.5-14.5); Red Blood Cell (RBC) Count 2.95 mill/uL (4.70-6.10); White Blood Cell (WBC) Count 18.7 10x3/uL (4.8-10.8)
[2023-08-02] MEDS: Cefepime 1 GM in Sodium Chloride 0.9% 100 ML IVPB SCH ×2 (05:36→17:39)
[2023-08-02] MEDS ORDERED: cefTRIAXone\\ROCEPHIN 1 GM in Sodium Chloride 0.9% 100 ML IVPB SCH (06:00)
[2023-08-02] MEDS ORDERED: Furosemide 20 MG/2 ML VIAL SLOW IVP SCH (06:00)
[2023-08-02] MEDS ORDERED: Cefepime 1 GM in Sodium Chloride 0.9% 100 ML IVPB SCH (06:00)
[2023-08-02 06:27] LABS: Anion Gap 13 mmol/L (10-20); Calcium 8.2 mg/dL (7.8-10.44); Carbon Dioxide 23 mmol/L (23-31); Chloride 104 mmol/L (98-107); Glucose 162 mg/dL (80-115); Potassium 3.4 mmol/L (3.5-5.1); Sodium 137 mmol/L (136-145)
[2023-08-02 08:57] LABS: BUN (Urea Nitrogen) 26 mg/dL (8.4-25.7); Calc. Creatinine Clearance 46 mL/min (70-130); Estimated GFR 50; Iron 8 ug/dL (65-175); Iron Binding Capacity, Total 225 mcg/dL (261-462)
[2023-08-02] MEDS: Empagliflozin 10 MG TAB PO SCH (11:07)
[2023-08-02] MEDS: Aspirin 81 mg Enteric Coated Tablet PO SCH (11:07)
[2023-08-02] MEDS: Furosemide 20 MG TAB PO SCH (11:07)
[2023-08-02] MEDS: Ezetimibe 10 MG TAB PO SCH (11:07)
[2023-08-02] MEDS: metroNIDAZOLE 500 MG in Premix 1 BAG IVPB SCH ×2 (11:08→17:40)
[2023-08-02] MEDS ORDERED: Magnevist 469MG/ML 20 ML VIAL ONE ×2 (11:26)
[2023-08-02] MEDS ORDERED: Potassium Chloride 20 MEQ TAB PO SCH (14:30)
[2023-08-02] MEDS ORDERED: Vancomycin 1 GM in Premix 1 BAG IVPB SCH (18:00)
[2023-08-02] MEDS: Rosuvastatin 20 MG TAB PO SCH (20:24)
[2023-08-02] MEDS: Acetaminophen 325 MG TAB PO PRN (22:48)
[2023-08-03] MEDS: metroNIDAZOLE 500 MG in Premix 1 BAG IVPB SCH ×3 (01:17→17:03)
[2023-08-03 04:59] LABS: #Monocytes 0.7 thou/uL (0.11-0.59); #Neutrophils 11.2 thou/uL (1.40-6.50); %Basophils 0.3 % (0.0-1.0); %Eosinophils 0.3 % (0.0-10.0); %Lymphocytes 9.1 % (21.0-51.0); %Monocytes 5.4 % (0.0-10.0); %Neutrophils 84.6 % (42.0-75.0); Hematocrit 27.6 % (42.0-52.0); Hemoglobin 8.8 g/dL (14.0-18.0); Mean Corpuscular HGB CONC 31.9 g/dL (32.0-36.0); Mean Corpuscular Hemoglobin 25.4 pg (27.0-31.0); Mean Corpuscular Volume 79.5 fl (78.0-98.0); Mean Platelet Volume 9.1 fL (7.4-10.4); Platelet Count 455 10x3/uL (130-400); RBC Distribution Width 18.1 % (11.5-14.5); Red Blood Cell (RBC) Count 3.47 mill/uL (4.70-6.10); White Blood Cell (WBC) Count 13.2 10x3/uL (4.8-10.8)
[2023-08-03 05:28] LABS: Anion Gap 15 mmol/L (10-20); BUN (Urea Nitrogen) 22 mg/dL (8.4-25.7); Calc. Creatinine Clearance 48 mL/min (70-130); Calcium 8.7 mg/dL (7.8-10.44); Carbon Dioxide 23 mmol/L (23-31); Chloride 102 mmol/L (98-107); Estimated GFR 51; Glucose 197 mg/dL (80-115); Potassium 3.9 mmol/L (3.5-5.1); Sodium 136 mmol/L (136-145)
[2023-08-03] MEDS: Cefepime 1 GM in Sodium Chloride 0.9% 100 ML IVPB SCH ×2 (05:35→17:08)
[2023-08-03] MEDS: HumaLOG 300 UNITS/3 ML VIAL SC PRN ×4 (05:54→20:21)
[2023-08-03] MEDS: Ezetimibe 10 MG TAB PO SCH (08:57)
[2023-08-03] MEDS: cloNIDine 0.2 MG TAB PO SCH ×2 (08:58→20:20)
[2023-08-03] MEDS: Aspirin 81 mg Enteric Coated Tablet PO SCH (08:58)
[2023-08-03] MEDS: Furosemide 20 MG TAB PO SCH (08:58)
[2023-08-03] MEDS: Tamsulosin HCl 0.4 MG CAP PO SCH (09:03)
[2023-08-03] MEDS: Empagliflozin 10 MG TAB PO SCH (10:03)
[2023-08-03] MEDS: Acetaminophen 325 MG TAB PO PRN (10:17)
[2023-08-03] MEDS ORDERED: Morphine 4 MG/ML VIAL SLOW IVP PRN (11:01)
[2023-08-03] MEDS: Amlodipine 5 MG TAB PO SCH (17:11)
[2023-08-03 17:24] LABS: Vancomycin, Trough 10.7 ug/mL
[2023-08-03] MEDS: Vancomycin (BATCH) 1.25 GM in Premix 1 BAG IVPB SCH (18:12)
[2023-08-03] MEDS: Rosuvastatin 20 MG TAB PO SCH (20:20)
[2023-08-04] MEDS: metroNIDAZOLE 500 MG in Premix 1 BAG IVPB SCH ×2 (00:53→08:17)
[2023-08-04 03:56] LABS: #Eosinphils 0.1 thou/uL (0.0-0.7); #Monocytes 0.7 thou/uL (0.11-0.59); #Neutrophils 8.2 thou/uL (1.40-6.50); %Basophils 0.3 % (0.0-1.0); %Eosinophils 0.9 % (0.0-10.0); %Lymphocytes 11.5 % (21.0-51.0); %Monocytes 7.1 % (0.0-10.0); %Neutrophils 79.9 % (42.0-75.0); Hematocrit 25.3 % (42.0-52.0); Mean Corpuscular HGB CONC 31.6 g/dL (32.0-36.0); Mean Corpuscular Hemoglobin 25.1 pg (27.0-31.0); Mean Corpuscular Volume 79.3 fl (78.0-98.0); Mean Platelet Volume 9.3 fL (7.4-10.4); Platelet Count 404 10x3/uL (130-400); RBC Distribution Width 18.2 % (11.5-14.5); Red Blood Cell (RBC) Count 3.19 mill/uL (4.70-6.10); White Blood Cell (WBC) Count 10.3 10x3/uL (4.8-10.8)
[2023-08-04 04:18] LABS: Anion Gap 15 mmol/L (10-20); BUN (Urea Nitrogen) 19 mg/dL (8.4-25.7); Calc. Creatinine Clearance 61 mL/min (70-130); Calcium 8.1 mg/dL (7.8-10.44); Carbon Dioxide 20 mmol/L (23-31); Chloride 107 mmol/L (98-107); Estimated GFR 69; Glucose 183 mg/dL (80-115); Potassium 4.2 mmol/L (3.5-5.1); Sodium 138 mmol/L (136-145)
[2023-08-04] MEDS: Cefepime 1 GM in Sodium Chloride 0.9% 100 ML IVPB SCH ×2 (04:43→17:03)
[2023-08-04] MEDS: HumaLOG 300 UNITS/3 ML VIAL SC PRN ×3 (05:45→17:06)
[2023-08-04] MEDS: Aspirin 81 mg Enteric Coated Tablet PO SCH (08:16)
[2023-08-04] MEDS: cloNIDine 0.2 MG TAB PO SCH ×2 (08:16→20:04)
[2023-08-04] MEDS: Ezetimibe 10 MG TAB PO SCH (08:17)
[2023-08-04] MEDS: Tamsulosin HCl 0.4 MG CAP PO SCH (08:17)
[2023-08-04] MEDS: Ferrous Sulfate 325 MG TAB PO SCH (08:17)
[2023-08-04] MEDS: Empagliflozin 10 MG TAB PO SCH (08:17)
[2023-08-04] MEDS: Furosemide 20 MG TAB PO SCH (08:17)
[2023-08-04] MEDS: metroNIDAZOLE 500 MG TAB PO SCH ×2 (14:56→20:03)
[2023-08-04] MEDS: Vancomycin (BATCH) 1.25 GM in Premix 1 BAG IVPB SCH (17:03)
[2023-08-04] MEDS: Amlodipine 5 MG TAB PO SCH (17:03)
[2023-08-04] MEDS: Rosuvastatin 20 MG TAB PO SCH (20:03)
[2023-08-05] MEDS: Cefepime 1 GM in Sodium Chloride 0.9% 100 ML IVPB SCH ×2 (04:19→17:37)
[2023-08-05 04:27] LABS: #Basophils 0.1 thou/uL (0.0-0.2); #Eosinphils 0.1 thou/uL (0.0-0.7); #Monocytes 0.6 thou/uL (0.11-0.59); #Neutrophils 5.3 thou/uL (1.40-6.50); %Basophils 0.7 % (0.0-1.0); %Eosinophils 1.3 % (0.0-10.0); %Lymphocytes 19.7 % (21.0-51.0); %Monocytes 7.7 % (0.0-10.0); %Neutrophils 70.3 % (42.0-75.0); Hematocrit 25.1 % (42.0-52.0); Hemoglobin 7.9 g/dL (14.0-18.0); Mean Corpuscular HGB CONC 31.5 g/dL (32.0-36.0); Mean Corpuscular Hemoglobin 24.5 pg (27.0-31.0); Mean Platelet Volume 9.1 fL (7.4-10.4); Platelet Count 367 10x3/uL (130-400); RBC Distribution Width 17.8 % (11.5-14.5); Red Blood Cell (RBC) Count 3.22 mill/uL (4.70-6.10); White Blood Cell (WBC) Count 7.5 10x3/uL (4.8-10.8)
[2023-08-05 04:56] LABS: Anion Gap 13 mmol/L (10-20); BUN (Urea Nitrogen) 20 mg/dL (8.4-25.7); Calc. Creatinine Clearance 57 mL/min (70-130); Calcium 8.2 mg/dL (7.8-10.44); Carbon Dioxide 21 mmol/L (23-31); Chloride 105 mmol/L (98-107); Estimated GFR 63; Glucose 159 mg/dL (80-115); Potassium 3.7 mmol/L (3.5-5.1); Sodium 135 mmol/L (136-145)
[2023-08-05] MEDS: Tamsulosin HCl 0.4 MG CAP PO SCH (08:39)
[2023-08-05] MEDS: Ferrous Sulfate 325 MG TAB PO SCH (08:39)
[2023-08-05] MEDS: Empagliflozin 10 MG TAB PO SCH (08:40)
[2023-08-05] MEDS: cloNIDine 0.2 MG TAB PO SCH ×2 (08:40→20:01)
[2023-08-05] MEDS: Furosemide 20 MG TAB PO SCH (08:40)
[2023-08-05] MEDS: Losartan 25 MG TAB PO SCH (08:40)
[2023-08-05] MEDS: Ezetimibe 10 MG TAB PO SCH (08:40)
[2023-08-05] MEDS: metroNIDAZOLE 500 MG TAB PO SCH ×3 (08:40→20:01)
[2023-08-05] MEDS: Aspirin 81 mg Enteric Coated Tablet PO SCH (08:41)
[2023-08-05] MEDS: Acetaminophen 325 MG TAB PO PRN (12:20)
[2023-08-05] MEDS: HumaLOG 300 UNITS/3 ML VIAL SC PRN ×2 (12:21→17:37)
[2023-08-05] MEDS: Amlodipine 5 MG TAB PO SCH (17:36)
[2023-08-05 17:41] LABS: Vancomycin, Trough 15.5 ug/mL
[2023-08-05] MEDS: Vancomycin (BATCH) 1.25 GM in Premix 1 BAG IVPB SCH (18:18)
[2023-08-05] MEDS: Rosuvastatin 20 MG TAB PO SCH (20:01)
[2023-08-06 03:48] LABS: #Eosinphils 0.1 thou/uL (0.0-0.7); #Monocytes 0.6 thou/uL (0.11-0.59); #Neutrophils 4.9 thou/uL (1.40-6.50); %Basophils 0.4 % (0.0-1.0); %Eosinophils 1.6 % (0.0-10.0); %Lymphocytes 18.9 % (21.0-51.0); %Monocytes 8.8 % (0.0-10.0); Hematocrit 25.3 % (42.0-52.0); Hemoglobin 8.2 g/dL (14.0-18.0); Mean Corpuscular HGB CONC 32.4 g/dL (32.0-36.0); Mean Corpuscular Hemoglobin 25.1 pg (27.0-31.0); Mean Corpuscular Volume 77.4 fl (78.0-98.0); Mean Platelet Volume 9.4 fL (7.4-10.4); Platelet Count 362 10x3/uL (130-400); RBC Distribution Width 17.8 % (11.5-14.5); Red Blood Cell (RBC) Count 3.27 mill/uL (4.70-6.10)
[2023-08-06 04:15] LABS: Anion Gap 14 mmol/L (10-20); BUN (Urea Nitrogen) 21 mg/dL (8.4-25.7); Calc. Creatinine Clearance 67 mL/min (70-130); Calcium 8.3 mg/dL (7.8-10.44); Carbon Dioxide 22 mmol/L (23-31); Chloride 102 mmol/L (98-107); Estimated GFR 77; Glucose 163 mg/dL (80-115); Potassium 3.7 mmol/L (3.5-5.1); Sodium 134 mmol/L (136-145)
[2023-08-06] MEDS: Cefepime 1 GM in Sodium Chloride 0.9% 100 ML IVPB SCH ×2 (04:25→17:42)
[2023-08-06 09:39] LABS: Chlam.trachomatis by PCR,Urine Not Detected (NotDetected); GC N.gonorrhoeae PCR,UrineVOID Not Detected (NotDetected)
[2023-08-06] MEDS: Ferrous Sulfate 325 MG TAB PO SCH (09:51)
[2023-08-06] MEDS: Empagliflozin 10 MG TAB PO SCH (09:52)
[2023-08-06] MEDS: Losartan 25 MG TAB PO SCH (09:52)
[2023-08-06] MEDS: Furosemide 20 MG TAB PO SCH (09:52)
[2023-08-06] MEDS: Ezetimibe 10 MG TAB PO SCH (09:52)
[2023-08-06] MEDS: Aspirin 81 mg Enteric Coated Tablet PO SCH (09:52)
[2023-08-06] MEDS: cloNIDine 0.2 MG TAB PO SCH ×2 (09:52→20:51)
[2023-08-06] MEDS: metroNIDAZOLE 500 MG TAB PO SCH ×3 (09:53→20:51)
[2023-08-06] MEDS: Tamsulosin HCl 0.4 MG CAP PO SCH (09:54)
[2023-08-06] MEDS: Acetaminophen 325 MG TAB PO PRN (11:17)
[2023-08-06] MEDS: HumaLOG 300 UNITS/3 ML VIAL SC PRN ×2 (12:44→17:44)
[2023-08-06 12:50] LABS: Syphilis Antibody Nonreactive (Nonreactive)
[2023-08-06] MEDS: Amlodipine 5 MG TAB PO SCH (17:42)
[2023-08-06] MEDS: Vancomycin (BATCH) 1.25 GM in Premix 1 BAG IVPB SCH (18:06)
[2023-08-06] MEDS: Rosuvastatin 20 MG TAB PO SCH (20:51)
[2023-08-07] MEDS: Cefepime 1 GM in Sodium Chloride 0.9% 100 ML IVPB SCH ×2 (05:07→17:04)
[2023-08-07 06:38] LABS: #Eosinphils 0.1 thou/uL (0.0-0.7); #Monocytes 0.5 thou/uL (0.11-0.59); %Basophils 0.5 % (0.0-1.0); %Lymphocytes 16.6 % (21.0-51.0); %Monocytes 6.6 % (0.0-10.0); %Neutrophils 74.9 % (42.0-75.0); Hematocrit 28.9 % (42.0-52.0); Hemoglobin 9.1 g/dL (14.0-18.0); Mean Corpuscular HGB CONC 31.5 g/dL (32.0-36.0); Mean Corpuscular Hemoglobin 24.5 pg (27.0-31.0); Mean Corpuscular Volume 77.7 fl (78.0-98.0); Mean Platelet Volume 9.4 fL (7.4-10.4); Platelet Count 383 10x3/uL (130-400); RBC Distribution Width 17.9 % (11.5-14.5); Red Blood Cell (RBC) Count 3.72 mill/uL (4.70-6.10)
[2023-08-07 07:19] LABS: Anion Gap 13 mmol/L (10-20); BUN (Urea Nitrogen) 20 mg/dL (8.4-25.7); Calc. Creatinine Clearance 65 mL/min (70-130); Calcium 8.6 mg/dL (7.8-10.44); Carbon Dioxide 21 mmol/L (23-31); Chloride 104 mmol/L (98-107); Estimated GFR 75; Glucose 145 mg/dL (80-115); Potassium 3.9 mmol/L (3.5-5.1); Sodium 134 mmol/L (136-145)
[2023-08-07] MEDS: Aspirin 81 mg Enteric Coated Tablet PO SCH (08:26)
[2023-08-07] MEDS: cloNIDine 0.2 MG TAB PO SCH ×2 (08:26→20:15)
[2023-08-07] MEDS: metroNIDAZOLE 500 MG TAB PO SCH ×3 (08:26→20:15)
[2023-08-07] MEDS: Ferrous Sulfate 325 MG TAB PO SCH (08:26)
[2023-08-07] MEDS: Empagliflozin 10 MG TAB PO SCH (08:26)
[2023-08-07] MEDS: Furosemide 20 MG TAB PO SCH (08:26)
[2023-08-07] MEDS: Tamsulosin HCl 0.4 MG CAP PO SCH (08:26)
[2023-08-07] MEDS: Ezetimibe 10 MG TAB PO SCH (08:27)
[2023-08-07] MEDS: Losartan 25 MG TAB PO SCH (08:27)
[2023-08-07] MEDS: HumaLOG 300 UNITS/3 ML VIAL SC PRN ×3 (12:25→22:07)
[2023-08-07] MEDS: Amlodipine 5 MG TAB PO SCH (17:05)
[2023-08-07] MEDS: Vancomycin (BATCH) 1.25 GM in Premix 1 BAG IVPB SCH (17:36)
[2023-08-07 17:37] LABS: Vancomycin, Trough 17.5 ug/mL
[2023-08-07] MEDS: Rosuvastatin 20 MG TAB PO SCH (20:15)
[2023-08-08] MEDS: Cefepime 1 GM in Sodium Chloride 0.9% 100 ML IVPB SCH (05:06)
[2023-08-08] MEDS: HumaLOG 300 UNITS/3 ML VIAL SC PRN ×4 (05:24→23:19)
[2023-08-08 05:53] LABS: #Eosinphils 0.1 thou/uL (0.0-0.7); #Monocytes 0.5 thou/uL (0.11-0.59); #Neutrophils 5.4 thou/uL (1.40-6.50); %Basophils 0.3 % (0.0-1.0); %Eosinophils 0.8 % (0.0-10.0); %Lymphocytes 18.7 % (21.0-51.0); %Monocytes 7.2 % (0.0-10.0); %Neutrophils 72.7 % (42.0-75.0); Hematocrit 26.9 % (42.0-52.0); Hemoglobin 8.5 g/dL (14.0-18.0); Mean Corpuscular HGB CONC 31.6 g/dL (32.0-36.0); Mean Corpuscular Hemoglobin 24.6 pg (27.0-31.0); Mean Corpuscular Volume 77.7 fl (78.0-98.0); Mean Platelet Volume 9.1 fL (7.4-10.4); Platelet Count 344 10x3/uL (130-400); RBC Distribution Width 18.2 % (11.5-14.5); Red Blood Cell (RBC) Count 3.46 mill/uL (4.70-6.10); White Blood Cell (WBC) Count 7.5 10x3/uL (4.8-10.8)
[2023-08-08 06:17] LABS: Anion Gap 13 mmol/L (10-20); BUN (Urea Nitrogen) 20 mg/dL (8.4-25.7); Calc. Creatinine Clearance 59 mL/min (70-130); Calcium 8.3 mg/dL (7.8-10.44); Carbon Dioxide 22 mmol/L (23-31); Chloride 103 mmol/L (98-107); Estimated GFR 67; Glucose 202 mg/dL (80-115); Potassium 3.9 mmol/L (3.5-5.1); Sodium 134 mmol/L (136-145)
[2023-08-08] MEDS: Tamsulosin HCl 0.4 MG CAP PO SCH (08:58)
[2023-08-08] MEDS: metroNIDAZOLE 500 MG TAB PO SCH ×3 (08:59→20:03)
[2023-08-08] MEDS: Losartan 25 MG TAB PO SCH (08:59)
[2023-08-08] MEDS: Empagliflozin 10 MG TAB PO SCH (08:59)
[2023-08-08] MEDS: Ferrous Sulfate 325 MG TAB PO SCH (08:59)
[2023-08-08] MEDS: cloNIDine 0.2 MG TAB PO SCH ×2 (08:59→20:03)
[2023-08-08] MEDS: Aspirin 81 mg Enteric Coated Tablet PO SCH (08:59)
[2023-08-08] MEDS: Ezetimibe 10 MG TAB PO SCH (08:59)
[2023-08-08] MEDS: Furosemide 20 MG TAB PO SCH (08:59)
[2023-08-08] MEDS: Acetaminophen 325 MG TAB PO PRN (09:04)
[2023-08-08] MEDS: Cefepime 2 GM in Sodium Chloride 0.9% 100 ML IVPB SCH (15:59)
[2023-08-08] MEDS: Amlodipine 5 MG TAB PO SCH (17:04)
[2023-08-08] MEDS: Vancomycin (BATCH) 1.25 GM in Premix 1 BAG IVPB SCH (17:04)
[2023-08-08] MEDS: Rosuvastatin 20 MG TAB PO SCH (20:03)
[2023-08-09 04:00] LABS: #Eosinphils 0.1 thou/uL (0.0-0.7); #Monocytes 0.6 thou/uL (0.11-0.59); #Neutrophils 5.2 thou/uL (1.40-6.50); %Basophils 0.3 % (0.0-1.0); %Eosinophils 1.1 % (0.0-10.0); %Lymphocytes 18.6 % (21.0-51.0); %Monocytes 8.6 % (0.0-10.0); %Neutrophils 71.1 % (42.0-75.0); Hematocrit 26.4 % (42.0-52.0); Hemoglobin 8.5 g/dL (14.0-18.0); Mean Corpuscular HGB CONC 32.2 g/dL (32.0-36.0); Mean Corpuscular Hemoglobin 24.9 pg (27.0-31.0); Mean Corpuscular Volume 77.2 fl (78.0-98.0); Mean Platelet Volume 9.6 fL (7.4-10.4); Platelet Count 323 10x3/uL (130-400); RBC Distribution Width 18.3 % (11.5-14.5); Red Blood Cell (RBC) Count 3.42 mill/uL (4.70-6.10); White Blood Cell (WBC) Count 7.3 10x3/uL (4.8-10.8)
[2023-08-09 04:23] LABS: Anion Gap 14 mmol/L (10-20); BUN (Urea Nitrogen) 23 mg/dL (8.4-25.7); Calc. Creatinine Clearance 64 mL/min (70-130); Calcium 8.1 mg/dL (7.8-10.44); Carbon Dioxide 23 mmol/L (23-31); Chloride 102 mmol/L (98-107); Estimated GFR 77; Glucose 187 mg/dL (80-115); Potassium 3.8 mmol/L (3.5-5.1); Sodium 135 mmol/L (136-145)
[2023-08-09] MEDS: Cefepime 2 GM in Sodium Chloride 0.9% 100 ML IVPB SCH ×2 (05:20→16:28)
[2023-08-09] MEDS: HumaLOG 300 UNITS/3 ML VIAL SC PRN ×4 (05:25→20:23)
[2023-08-09] MEDS: Tamsulosin HCl 0.4 MG CAP PO SCH (08:43)
[2023-08-09] MEDS: metroNIDAZOLE 500 MG TAB PO SCH ×3 (08:43→20:22)
[2023-08-09] MEDS: Ferrous Sulfate 325 MG TAB PO SCH (08:44)
[2023-08-09] MEDS: cloNIDine 0.2 MG TAB PO SCH ×2 (08:44→20:22)
[2023-08-09] MEDS: Losartan 25 MG TAB PO SCH (08:44)
[2023-08-09] MEDS: Empagliflozin 10 MG TAB PO SCH (08:44)
[2023-08-09] MEDS: Aspirin 81 mg Enteric Coated Tablet PO SCH (08:44)
[2023-08-09] MEDS: Ezetimibe 10 MG TAB PO SCH (08:44)
[2023-08-09] MEDS: Furosemide 20 MG TAB PO SCH (08:44)
[2023-08-09] MEDS ORDERED: Iopamidol 300 61% 30 ML VIAL ONE (11:06)
[2023-08-09] MEDS: Vancomycin (BATCH) 1.25 GM in Premix 1 BAG IVPB SCH (17:27)
[2023-08-09] MEDS: Amlodipine 5 MG TAB PO SCH (17:27)
[2023-08-09 17:45] LABS: Vancomycin, Trough 16.5 ug/mL
[2023-08-09] MEDS: Heparin 5,000 UNITS/ML VIAL SC SCH (20:22)
[2023-08-09] MEDS: Rosuvastatin 20 MG TAB PO SCH (20:22)
[2023-08-09] MEDS ORDERED: Insulin Glargine 30 UNITS/0.3 ML VIAL SC SCH (21:00)
[2023-08-10 04:55] LABS: #Eosinphils 0.1 thou/uL (0.0-0.7); #Monocytes 0.5 thou/uL (0.11-0.59); #Neutrophils 3.8 thou/uL (1.40-6.50); %Basophils 0.5 % (0.0-1.0); %Eosinophils 1.2 % (0.0-10.0); %Lymphocytes 23.2 % (21.0-51.0); %Monocytes 8.5 % (0.0-10.0); %Neutrophils 66.3 % (42.0-75.0); Hematocrit 28.4 % (42.0-52.0); Hemoglobin 8.9 g/dL (14.0-18.0); Mean Corpuscular HGB CONC 31.3 g/dL (32.0-36.0); Mean Corpuscular Hemoglobin 24.1 pg (27.0-31.0); Mean Corpuscular Volume 76.8 fl (78.0-98.0); Mean Platelet Volume 9.6 fL (7.4-10.4); Platelet Count 329 10x3/uL (130-400); RBC Distribution Width 18.6 % (11.5-14.5); White Blood Cell (WBC) Count 5.8 10x3/uL (4.8-10.8)
[2023-08-10 05:17] LABS: Anion Gap 13 mmol/L (10-20); BUN (Urea Nitrogen) 24 mg/dL (8.4-25.7); Calc. Creatinine Clearance 57 mL/min (70-130); Calcium 8.4 mg/dL (7.8-10.44); Carbon Dioxide 24 mmol/L (23-31); Chloride 101 mmol/L (98-107); Estimated GFR 67; Glucose 200 mg/dL (80-115); Potassium 4.1 mmol/L (3.5-5.1); Sodium 134 mmol/L (136-145)
[2023-08-10] MEDS: Cefepime 2 GM in Sodium Chloride 0.9% 100 ML IVPB SCH ×2 (05:54→16:52)
[2023-08-10] MEDS: HumaLOG 300 UNITS/3 ML VIAL SC PRN ×4 (05:58→20:22)
[2023-08-10] MEDS: Furosemide 20 MG TAB PO SCH (08:54)
[2023-08-10] MEDS: Ezetimibe 10 MG TAB PO SCH (08:54)
[2023-08-10] MEDS: cloNIDine 0.2 MG TAB PO SCH ×2 (08:55→20:21)
[2023-08-10] MEDS: metroNIDAZOLE 500 MG TAB PO SCH ×3 (08:55→20:21)
[2023-08-10] MEDS: Tamsulosin HCl 0.4 MG CAP PO SCH (08:55)
[2023-08-10] MEDS: Empagliflozin 10 MG TAB PO SCH (08:55)
[2023-08-10] MEDS: Losartan 25 MG TAB PO SCH (08:55)
[2023-08-10] MEDS: Ferrous Sulfate 325 MG TAB PO SCH (08:55)
[2023-08-10] MEDS: Aspirin 81 mg Enteric Coated Tablet PO SCH (08:55)
[2023-08-10] MEDS: Fluconazole 100 MG TAB PO SCH (08:55)
[2023-08-10] MEDS: Heparin 5,000 UNITS/ML VIAL SC SCH ×2 (08:56→20:23)
[2023-08-10] MEDS: Polyethylene Glycol 3350 17 GM Packet PO SCH (14:02)
[2023-08-10] MEDS: Amlodipine 5 MG TAB PO SCH (16:52)
[2023-08-10] MEDS: Vancomycin (BATCH) 1.25 GM in Premix 1 BAG IVPB SCH (16:52)
[2023-08-10] MEDS: Senokot S 8.6-50 MG TAB PO SCH (20:21)
[2023-08-10] MEDS: Rosuvastatin 20 MG TAB PO SCH (20:21)
[2023-08-10] MEDS ORDERED: Insulin Glargine 30 UNITS/0.3 ML VIAL SC SCH (21:00)
[2023-08-11 04:12] LABS: #Eosinphils 0.1 thou/uL (0.0-0.7); #Monocytes 0.5 thou/uL (0.11-0.59); %Basophils 0.7 % (0.0-1.0); %Eosinophils 0.9 % (0.0-10.0); %Lymphocytes 22.1 % (21.0-51.0); %Monocytes 8.2 % (0.0-10.0); %Neutrophils 67.6 % (42.0-75.0); Hematocrit 29.7 % (42.0-52.0); Hemoglobin 9.4 g/dL (14.0-18.0); Mean Corpuscular HGB CONC 31.6 g/dL (32.0-36.0); Mean Corpuscular Hemoglobin 24.6 pg (27.0-31.0); Mean Corpuscular Volume 77.7 fl (78.0-98.0); Mean Platelet Volume 9.3 fL (7.4-10.4); Platelet Count 312 10x3/uL (130-400); Red Blood Cell (RBC) Count 3.82 mill/uL (4.70-6.10); White Blood Cell (WBC) Count 5.9 10x3/uL (4.8-10.8)
[2023-08-11] MEDS: Cefepime 2 GM in Sodium Chloride 0.9% 100 ML IVPB SCH ×2 (04:20→16:06)
[2023-08-11 04:47] LABS: Anion Gap 13 mmol/L (10-20); BUN (Urea Nitrogen) 21 mg/dL (8.4-25.7); Calc. Creatinine Clearance 61 mL/min (70-130); Calcium 8.5 mg/dL (7.8-10.44); Carbon Dioxide 21 mmol/L (23-31); Chloride 101 mmol/L (98-107); Estimated GFR 73; Glucose 179 mg/dL (80-115); Sodium 131 mmol/L (136-145)
[2023-08-11] MEDS: HumaLOG 300 UNITS/3 ML VIAL SC PRN ×4 (06:06→20:56)
[2023-08-11] MEDS: Aspirin 81 mg Enteric Coated Tablet PO SCH (08:52)
[2023-08-11] MEDS: Tamsulosin HCl 0.4 MG CAP PO SCH (08:52)
[2023-08-11] MEDS: metroNIDAZOLE 500 MG TAB PO SCH ×3 (08:53→20:55)
[2023-08-11] MEDS: Ferrous Sulfate 325 MG TAB PO SCH (08:53)
[2023-08-11] MEDS: Fluconazole 100 MG TAB PO SCH (08:53)
[2023-08-11] MEDS: Furosemide 20 MG TAB PO SCH (08:53)
[2023-08-11] MEDS: Senokot S 8.6-50 MG TAB PO SCH ×2 (08:53→20:56)
[2023-08-11] MEDS: Ezetimibe 10 MG TAB PO SCH (08:53)
[2023-08-11] MEDS: Empagliflozin 10 MG TAB PO SCH (08:53)
[2023-08-11] MEDS: Heparin 5,000 UNITS/ML VIAL SC SCH ×2 (08:54→20:56)
[2023-08-11] MEDS: Losartan 25 MG TAB PO SCH (08:54)
[2023-08-11] MEDS: cloNIDine 0.2 MG TAB PO SCH ×2 (08:54→20:56)
[2023-08-11 11:59] VITALS: BMI 25.1
[2023-08-11] MEDS: Polyethylene Glycol 3350 17 GM Packet PO SCH (13:20)
[2023-08-11] MEDS: Amlodipine 5 MG TAB PO SCH (17:17)
[2023-08-11] MEDS: Vancomycin (BATCH) 1.25 GM in Premix 1 BAG IVPB SCH (17:48)
[2023-08-11] MEDS: Rosuvastatin 20 MG TAB PO SCH (20:55)
[2023-08-11] MEDS: Insulin Glargine 30 UNITS/0.3 ML VIAL SC SCH (20:56)
[2023-08-12 05:00] LABS: #Eosinphils 0.1 thou/uL (0.0-0.7); #Monocytes 0.6 thou/uL (0.11-0.59); #Neutrophils 5.2 thou/uL (1.40-6.50); %Basophils 0.5 % (0.0-1.0); %Eosinophils 1.2 % (0.0-10.0); %Lymphocytes 21.2 % (21.0-51.0); %Monocytes 7.5 % (0.0-10.0); %Neutrophils 69.2 % (42.0-75.0); Hematocrit 30.9 % (42.0-52.0); Hemoglobin 9.8 g/dL (14.0-18.0); Mean Corpuscular HGB CONC 31.7 g/dL (32.0-36.0); Mean Corpuscular Hemoglobin 24.6 pg (27.0-31.0); Mean Corpuscular Volume 77.4 fl (78.0-98.0); Platelet Count 356 10x3/uL (130-400); RBC Distribution Width 19.4 % (11.5-14.5); Red Blood Cell (RBC) Count 3.99 mill/uL (4.70-6.10); White Blood Cell (WBC) Count 7.5 10x3/uL (4.8-10.8)
[2023-08-12 05:20] LABS: Anion Gap 14 mmol/L (10-20); BUN (Urea Nitrogen) 32 mg/dL (8.4-25.7); Calc. Creatinine Clearance 44 mL/min (70-130); Carbon Dioxide 23 mmol/L (23-31); Chloride 101 mmol/L (98-107); Estimated GFR 50; Glucose 170 mg/dL (80-115); Sodium 134 mmol/L (136-145)
[2023-08-12] MEDS: Cefepime 2 GM in Sodium Chloride 0.9% 100 ML IVPB SCH (06:00)
[2023-08-12] MEDS: HumaLOG 300 UNITS/3 ML VIAL SC PRN ×3 (06:01→18:25)
[2023-08-12] MEDS: Aspirin 81 mg Enteric Coated Tablet PO SCH (09:28)
[2023-08-12] MEDS: Ezetimibe 10 MG TAB PO SCH (09:28)
[2023-08-12] MEDS: cloNIDine 0.2 MG TAB PO SCH ×2 (09:28→20:17)
[2023-08-12] MEDS: metroNIDAZOLE 500 MG TAB PO SCH ×3 (09:28→20:17)
[2023-08-12] MEDS: Empagliflozin 10 MG TAB PO SCH (09:28)
[2023-08-12] MEDS: Furosemide 20 MG TAB PO SCH (09:28)
[2023-08-12] MEDS: Tamsulosin HCl 0.4 MG CAP PO SCH (09:28)
[2023-08-12] MEDS: Fluconazole 100 MG TAB PO SCH (09:28)
[2023-08-12] MEDS: Ferrous Sulfate 325 MG TAB PO SCH (09:28)
[2023-08-12] MEDS: Senokot S 8.6-50 MG TAB PO SCH ×2 (09:29→20:17)
[2023-08-12] MEDS: Losartan 25 MG TAB PO SCH (09:29)
[2023-08-12] MEDS: Heparin 5,000 UNITS/ML VIAL SC SCH ×2 (09:30→20:17)
[2023-08-12] MEDS ORDERED: Vancomycin (BATCH) 1.25 GM in Premix 1 BAG IVPB SCH (11:00)
[2023-08-12] MEDS: Polyethylene Glycol 3350 17 GM Packet PO SCH (13:01)
[2023-08-12] MEDS: Acetaminophen 325 MG TAB PO PRN (16:10)
[2023-08-12] MEDS: Cefepime 1 GM in Sodium Chloride 0.9% 100 ML IVPB SCH (16:11)
[2023-08-12 18:02] LABS: Vancomycin, Random 17.7 ug/mL (See Comment)
[2023-08-12] MEDS: Amlodipine 5 MG TAB PO SCH (18:12)
[2023-08-12] MEDS ORDERED: Vancomycin 1 GM in Premix 1 BAG IVPB SCH (20:00)
[2023-08-12] MEDS: Rosuvastatin 20 MG TAB PO SCH (20:17)
[2023-08-12] MEDS: Insulin Glargine 30 UNITS/0.3 ML VIAL SC SCH (20:18)
[2023-08-13] MEDS: Cefepime 1 GM in Sodium Chloride 0.9% 100 ML IVPB SCH ×2 (04:27→17:05)
[2023-08-13 06:20] LABS: #Eosinphils 0.1 thou/uL (0.0-0.7); #Monocytes 0.6 thou/uL (0.11-0.59); #Neutrophils 6.2 thou/uL (1.40-6.50); %Basophils 0.4 % (0.0-1.0); %Eosinophils 0.7 % (0.0-10.0); %Lymphocytes 17.6 % (21.0-51.0); %Neutrophils 73.8 % (42.0-75.0); Hematocrit 30.6 % (42.0-52.0); Hemoglobin 9.8 g/dL (14.0-18.0); Mean Corpuscular Hemoglobin 24.9 pg (27.0-31.0); Mean Corpuscular Volume 77.9 fl (78.0-98.0); Mean Platelet Volume 9.5 fL (7.4-10.4); Platelet Count 317 10x3/uL (130-400); RBC Distribution Width 19.9 % (11.5-14.5); Red Blood Cell (RBC) Count 3.93 mill/uL (4.70-6.10); White Blood Cell (WBC) Count 8.3 10x3/uL (4.8-10.8)
[2023-08-13 06:48] LABS: Anion Gap 13 mmol/L (10-20); BUN (Urea Nitrogen) 26 mg/dL (8.4-25.7); Calc. Creatinine Clearance 53 mL/min (70-130); Calcium 8.6 mg/dL (7.8-10.44); Carbon Dioxide 23 mmol/L (23-31); Chloride 100 mmol/L (98-107); Estimated GFR 61; Glucose 148 mg/dL (80-115); Potassium 3.7 mmol/L (3.5-5.1); Sodium 132 mmol/L (136-145)
[2023-08-13] MEDS: Senokot S 8.6-50 MG TAB PO SCH ×2 (08:32→21:04)
[2023-08-13] MEDS: Empagliflozin 10 MG TAB PO SCH (08:32)
[2023-08-13] MEDS: Ferrous Sulfate 325 MG TAB PO SCH (08:32)
[2023-08-13] MEDS: Tamsulosin HCl 0.4 MG CAP PO SCH (08:32)
[2023-08-13] MEDS: Losartan 25 MG TAB PO SCH (08:32)
[2023-08-13] MEDS: Aspirin 81 mg Enteric Coated Tablet PO SCH (08:32)
[2023-08-13] MEDS: Heparin 5,000 UNITS/ML VIAL SC SCH ×2 (08:33→21:04)
[2023-08-13] MEDS: cloNIDine 0.2 MG TAB PO SCH ×2 (08:33→21:04)
[2023-08-13] MEDS: Furosemide 20 MG TAB PO SCH (08:33)
[2023-08-13] MEDS: Ezetimibe 10 MG TAB PO SCH (08:33)
[2023-08-13] MEDS: Fluconazole 100 MG TAB PO SCH (08:33)
[2023-08-13] MEDS: metroNIDAZOLE 500 MG TAB PO SCH ×3 (08:33→21:04)
[2023-08-13] MEDS: HumaLOG 300 UNITS/3 ML VIAL SC PRN ×2 (13:05→18:36)
[2023-08-13] MEDS: Polyethylene Glycol 3350 17 GM Packet PO SCH (13:06)
[2023-08-13] MEDS: Amlodipine 5 MG TAB PO SCH (17:05)
[2023-08-13] MEDS: Insulin Glargine 30 UNITS/0.3 ML VIAL SC SCH (21:03)
[2023-08-13] MEDS: Rosuvastatin 20 MG TAB PO SCH (21:04)
[2023-08-13] MEDS: Vancomycin (BATCH) 1.25 GM in Premix 1 BAG IVPB SCH (21:06)
[2023-08-14] MEDS: Cefepime 1 GM in Sodium Chloride 0.9% 100 ML IVPB SCH ×2 (04:50→17:10)
[2023-08-14] MEDS: Tamsulosin HCl 0.4 MG CAP PO SCH (08:24)
[2023-08-14] MEDS: Fluconazole 100 MG TAB PO SCH (08:25)
[2023-08-14] MEDS: Losartan 25 MG TAB PO SCH (08:25)
[2023-08-14] MEDS: Ezetimibe 10 MG TAB PO SCH (08:25)
[2023-08-14] MEDS: metroNIDAZOLE 500 MG TAB PO SCH ×3 (08:25→21:03)
[2023-08-14] MEDS: Ferrous Sulfate 325 MG TAB PO SCH (08:25)
[2023-08-14] MEDS: Aspirin 81 mg Enteric Coated Tablet PO SCH (08:26)
[2023-08-14] MEDS: cloNIDine 0.2 MG TAB PO SCH ×2 (08:26→21:03)
[2023-08-14] MEDS: Senokot S 8.6-50 MG TAB PO SCH ×2 (08:26→21:03)
[2023-08-14] MEDS: Empagliflozin 10 MG TAB PO SCH (08:26)
[2023-08-14] MEDS: Heparin 5,000 UNITS/ML VIAL SC SCH ×2 (08:26→21:01)
[2023-08-14] MEDS: Furosemide 20 MG TAB PO SCH (08:26)
[2023-08-14] MEDS: HumaLOG 300 UNITS/3 ML VIAL SC PRN (12:32)
[2023-08-14] MEDS: Polyethylene Glycol 3350 17 GM Packet PO SCH (12:33)
[2023-08-14] MEDS ORDERED: HumaLOG 300 UNITS/3 ML VIAL SC PRN (17:00)
[2023-08-14] MEDS: Amlodipine 5 MG TAB PO SCH (17:10)
[2023-08-14] MEDS: Vancomycin (BATCH) 1.25 GM in Premix 1 BAG IVPB SCH (21:00)
[2023-08-14] MEDS: Insulin Glargine 30 UNITS/0.3 ML VIAL SC SCH (21:02)
[2023-08-14] MEDS: Rosuvastatin 20 MG TAB PO SCH (21:03)
[2023-08-15] MEDS: Cefepime 1 GM in Sodium Chloride 0.9% 100 ML IVPB SCH (05:02)
[2023-08-15 07:59] VITALS: TEMP 98.6
[2023-08-15] MEDS: Ezetimibe 10 MG TAB PO SCH (09:48)
[2023-08-15] MEDS: Ferrous Sulfate 325 MG TAB PO SCH (09:48)
[2023-08-15] MEDS: Aspirin 81 mg Enteric Coated Tablet PO SCH (09:48)
[2023-08-15] MEDS: Tamsulosin HCl 0.4 MG CAP PO SCH (09:48)
[2023-08-15] MEDS: Fluconazole 100 MG TAB PO SCH (09:49)
[2023-08-15] MEDS: metroNIDAZOLE 500 MG TAB PO SCH (09:49)
[2023-08-15] MEDS: Senokot S 8.6-50 MG TAB PO SCH (09:49)
[2023-08-15] MEDS: Empagliflozin 10 MG TAB PO SCH (09:50)
[2023-08-15] MEDS: Heparin 5,000 UNITS/ML VIAL SC SCH (09:50)
[2023-08-15] MEDS: cloNIDine 0.2 MG TAB PO SCH (10:47)
[2023-08-15] MEDS: Losartan 25 MG TAB PO SCH (10:47)
[2023-08-15] MEDS: Furosemide 20 MG TAB PO SCH (10:48)
[2023-08-15 10:49] VITALS: BP 134/67
== END 2023-08-15 12:36 | disposition short-term general hospital (02) | DRG 637 ==
LOC: ERS 14:17 → 2SE 17:26 → OBSVTOIN 08-02 08:51 → MERGE 08-02 08:51
PROVIDERS: ADMIT Physician Assistant; ATTEND Family Medicine
PROC: 3E03329 Introduction of Other Anti-infective into Peripheral Vein, Percutaneous Approach (ICD-10-PCS; 2023-08-01)
PROC: 02HV33Z Insertion of Infusion Device into Superior Vena Cava, Percutaneous Approach (ICD-10-PCS; principal; 2023-08-09)
PROC: B5181ZA Fluoroscopy of Superior Vena Cava using Low Osmolar Contrast, Guidance (ICD-10-PCS; 2023-08-09)
DX: E11.69 Type 2 diabetes mellitus with other specified complication (principal); G93.41 Metabolic encephalopathy; I21.A1 Myocardial infarction type 2; N39.0 Urinary tract infection, site not specified; I69.351 Hemiplegia and hemiparesis following cerebral infarction affecting right dominant side; E87.1 Hypo-osmolality and hyponatremia; M86.8X7 Other osteomyelitis, ankle and foot; I96 Gangrene, not elsewhere classified; L02.415 Cutaneous abscess of right lower limb; I13.0 Hypertensive heart and chronic kidney disease with heart failure and stage 1 through stage 4 chronic kidney disease, or unspecified chronic kidney disease; I50.32 Chronic diastolic (congestive) heart failure; N17.9 Acute kidney failure, unspecified; I67.89 Other cerebrovascular disease; I70.202 Unspecified atherosclerosis of native arteries of extremities, left leg; I70.291 Other atherosclerosis of native arteries of extremities, right leg; I07.1 Rheumatic tricuspid insufficiency; S81.801A Unspecified open wound, right lower leg, initial encounter; B37.9 Candidiasis, unspecified; M81.0 Age-related osteoporosis without current pathological fracture; E78.5 Hyperlipidemia, unspecified; E11.22 Type 2 diabetes mellitus with diabetic chronic kidney disease; N18.9 Chronic kidney disease, unspecified; B96.5 Pseudomonas (aeruginosa) (mallei) (pseudomallei) as the cause of diseases classified elsewhere; R33.9 Retention of urine, unspecified; I65.23 Occlusion and stenosis of bilateral carotid arteries; I25.10 Atherosclerotic heart disease of native coronary artery without angina pectoris; N40.0 Benign prostatic hyperplasia without lower urinary tract symptoms; D63.1 Anemia in chronic kidney disease; D50.9 Iron deficiency anemia, unspecified; E11.65 Type 2 diabetes mellitus with hyperglycemia; Z95.1 Presence of aortocoronary bypass graft; Z88.1 Allergy status to other antibiotic agents; Z79.4 Long term (current) use of insulin; Z79.899 Other long term (current) drug therapy; Z89.432 Acquired absence of left foot; Z89.431 Acquired absence of right foot
CPT/HCPCS: 36415; 36416; 36569; 70450; 70551; 71045; 80048; 80053; 80202; 80306; 80307; 81001; 82728; 83036; 83540; 83550; 83605; 83735; 83880; 84443; 84484; 85025; 86780; 87040; 87070; 87077; 87086; 87186; 87491; 87591; 93005; 93306; 93923; 96365; 96367; 96375; 96376; 97139; A9579; C1751; G0378; J0692; J1644; J1815; J1940; J3370; J3370-JW; J3490; Q9967

== ENCOUNTER 2023-09-22 06:08 | Inpatient (IN) | payer MEDICARE ==
[2023-09-21 09:44] VITALS: BMI 26.6
[2023-09-21 09:58] LABS: Hemoglobin 13.5 g/dL (13.5-17.5); Mean Corpuscular HGB CONC 32.9 g/dL (32.0-36.0); Mean Corpuscular Hemoglobin 27.4 pg (27.0-33.0); Mean Corpuscular Volume 83.2 fl (81.2-95.1); Mean Platelet Volume 9.1 fl (7.4-10.4); Platelet Count 373 10x3/uL (150-450); RBC Distribution Width 26.4 % (11.5-14.5); Red Blood Cell (RBC) Count 4.93 10x6/uL (4.32-5.72); White Blood Cell (WBC) Count 9.5 10x3/uL (3.5-10.5)
[2023-09-21 10:34] LABS: PTT 29.3 sec (22.0-33.0); Prothrombin Time 10.6 sec (9.5-12.1)
[2023-09-21 10:53] LABS: Anion Gap 19 mmol/L (10-20); BUN (Urea Nitrogen) 34 mg/dL (8.4-25.7); Calc. Creatinine Clearance 0 mL/min (70-130); Calcium 9.5 mg/dL (7.8-10.44); Carbon Dioxide 25 mmol/L (23-31); Chloride 99 mmol/L (98-107); Estimated GFR 50; Glucose 96 mg/dL (80-115); Potassium 4.8 mmol/L (3.5-5.1); Sodium 138 mmol/L (136-145)
[2023-09-22] MEDS ORDERED: Clindamycin/D5W 900 mg/50 ml Premix Bag ONE ×2 (07:18→13:30)
[2023-09-22] MEDS ORDERED: Dexmedetomidine 200 MCG/2 ML VIAL ONE (07:22)
[2023-09-22] MEDS ORDERED: PROPOFOL 20 ML ONE (07:26)
[2023-09-22] MEDS ORDERED: Fentanyl 250 MCG/5 ML VIAL ONE (07:26)
[2023-09-22] MEDS ORDERED: Ondansetron PF 4 MG/2 ML Vial ONE (07:34)
[2023-09-22] MEDS ORDERED: PHENYLEPHRINE-NS 100 MCG/ML 10 ML SYRINGE ONE (07:59)
[2023-09-22] MEDS ORDERED: HYDROmorphone 2 MG/ML VIAL SLOW IVP PRN (08:13)
[2023-09-22] MEDS ORDERED: Ondansetron HCl/PF 4 MG/2 ML Vial IVP PRN ×2 (08:13→11:00)
[2023-09-22] MEDS ORDERED: Promethazine HCl 25 MG/ML VIAL IM PRN ×4 (08:13→11:00)
[2023-09-22] MEDS ORDERED: Lidocaine 1% (PF) 30 ML VIAL ONE (08:51)
[2023-09-22] MEDS ORDERED: EPINEPHrine 1 MG/ML VIAL ONE (08:52)
[2023-09-22] MEDS ORDERED: Morphine 4 MG/ML VIAL SLOW IVP PRN (10:23)
[2023-09-22] MEDS ORDERED: Ipratropium/Albuterol 3 ML NEB NEB PRN (10:23)
[2023-09-22] MEDS ORDERED: Ondansetron PF 4 MG/2 ML Vial IVP PRN (10:23)
[2023-09-22] MEDS ORDERED: traMADol HCl 50 MG TAB PO PRN (10:23)
[2023-09-22] MEDS ORDERED: Promethazine HCl 25 MG/ML VIAL PR PRN (10:23)
[2023-09-22] MEDS ORDERED: Acetaminophen 325 MG TAB PO SCH (10:30)
[2023-09-22] MEDS ORDERED: Promethazine HCl 25 MG SUPP PR PRN (10:35)
[2023-09-22] MEDS ORDERED: fentaNYL PF 100 MCG/2 ML SYRINGE ONE (13:22)
[2023-09-22] MEDS ORDERED: Acetaminophen 500 MG TAB ONE (13:30)
[2023-09-22] MEDS: Acetaminophen 500 MG TAB PO SCH ×3 (13:31→23:46)
[2023-09-22] MEDS: Clindamycin/D5W 900 MG in Premix 1 BAG IVPB SCH ×3 (13:35→23:46)
[2023-09-22] MEDS: traMADol HCl 50 MG TAB PO PRN (16:42)
[2023-09-23] MEDS: Acetaminophen 500 MG TAB PO SCH ×4 (05:31→23:58)
[2023-09-23] MEDS: Clindamycin/D5W 900 MG in Premix 1 BAG IVPB SCH (05:31)
[2023-09-23 06:18] LABS: #Monocytes 0.6 thou/uL (0.11-0.59); #Neutrophils 6.1 thou/uL (1.40-6.50); %Basophils 0.4 % (0.0-1.0); %Eosinophils 0.1 % (0.0-10.0); %Lymphocytes 16.4 % (21.0-51.0); %Monocytes 7.7 % (0.0-10.0); %Neutrophils 75.2 % (42.0-75.0); Hematocrit 32.7 % (42.0-52.0); Hemoglobin 10.5 g/dL (14.0-18.0); Mean Corpuscular HGB CONC 32.1 g/dL (32.0-36.0); Mean Corpuscular Hemoglobin 27.9 pg (27.0-31.0); Mean Platelet Volume 9.2 fL (7.4-10.4); Platelet Count 313 10x3/uL (130-400); RBC Distribution Width 25.5 % (11.5-14.5); Red Blood Cell (RBC) Count 3.76 mill/uL (4.70-6.10); White Blood Cell (WBC) Count 8.1 10x3/uL (4.8-10.8)
[2023-09-23 06:52] LABS: Anion Gap 16 mmol/L (10-20); BUN (Urea Nitrogen) 28 mg/dL (8.4-25.7); Calc. Creatinine Clearance 54 mL/min (70-130); Calcium 8.6 mg/dL (7.8-10.44); Carbon Dioxide 24 mmol/L (23-31); Chloride 100 mmol/L (98-107); Estimated GFR 57; Glucose 154 mg/dL (80-115); Potassium 5.2 mmol/L (3.5-5.1); Sodium 135 mmol/L (136-145)
[2023-09-23] MEDS: traMADol HCl 50 MG TAB PO PRN (08:11)
[2023-09-23 08:33] LABS: Anisocytosis SLIGHT = 6-15 cells (100X) (0-5/hpf); Ovalocytes SLIGHT = 2-5 cells (100X) (0-1/hpf); Target Cells SLIGHT = 2-5 cells (100X) (0-1/hpf)
[2023-09-23 08:34] LABS: Platelet Adequacy Comment Appears Adequate
[2023-09-23] MEDS ORDERED: FLU VACC QS2023(65UP)/MF59C/PF 60 MCG/0.5 ML SYRINGE IM ONE (09:00)
[2023-09-23] MEDS ORDERED: Dextrose 50% Abboject 50 ML SYRINGE SLOW IVP PRN (10:00)
[2023-09-23] MEDS ORDERED: Dextrose 5% in Water 1,000 ML IV PRN (10:00)
[2023-09-23] MEDS ORDERED: Glucagon 1 MG/ML KIT IM PRN (10:00)
[2023-09-23] MEDS ORDERED: Metoprolol Tartrate 25 MG TAB PO SCH (10:15)
[2023-09-23] MEDS ORDERED: hydrALAZINE 25 MG TAB PO SCH (12:30)
[2023-09-23] MEDS: Insulin Regular 300 UNITS/3 ML VIAL SC PRN (19:00)
[2023-09-23] MEDS: Tamsulosin HCl 0.4 MG CAP PO SCH (20:06)
[2023-09-23] MEDS: hydrALAZINE 25 MG TAB PO SCH (20:06)
[2023-09-23] MEDS: Enoxaparin 30 MG (0.3 mL) SYRINGE SC SCH (20:06)
[2023-09-23] MEDS: Metoprolol Tartrate 50 MG TAB PO SCH (20:06)
[2023-09-23] MEDS: cloNIDine 0.1 MG TAB PO SCH (20:06)
[2023-09-23] MEDS ORDERED: cloNIDine 0.1 MG TAB PO SCH (21:00)
[2023-09-24] MEDS: Insulin Regular 300 UNITS/3 ML VIAL SC PRN ×3 (05:47→23:48)
[2023-09-24] MEDS: Acetaminophen 500 MG TAB PO SCH ×4 (05:53→23:47)
[2023-09-24] MEDS ORDERED: Pantoprazole 40 MG GRANULES PACKET PO SCH (09:00)
[2023-09-24] MEDS: Aspirin 81 mg Enteric Coated Tablet PO SCH (09:12)
[2023-09-24] MEDS: Metoprolol Tartrate 50 MG TAB PO SCH ×2 (09:13→20:36)
[2023-09-24] MEDS: cloNIDine 0.1 MG TAB PO SCH ×2 (09:13→20:36)
[2023-09-24] MEDS: hydrALAZINE 25 MG TAB PO SCH ×2 (09:13→23:02)
[2023-09-24] MEDS: Insulin Glargine 30 UNITS/0.3 ML VIAL SC SCH (09:16)
[2023-09-24 09:23] LABS: #Monocytes 0.7 thou/uL (0.11-0.59); #Neutrophils 6.2 thou/uL (1.40-6.50); %Basophils 0.2 % (0.0-1.0); %Eosinophils 0.1 % (0.0-10.0); %Lymphocytes 15.2 % (21.0-51.0); %Neutrophils 76.1 % (42.0-75.0); Hematocrit 32.1 % (42.0-52.0); Hemoglobin 10.5 g/dL (14.0-18.0); Mean Corpuscular HGB CONC 32.7 g/dL (32.0-36.0); Mean Corpuscular Hemoglobin 27.9 pg (27.0-31.0); Mean Corpuscular Volume 85.4 fl (78.0-98.0); Mean Platelet Volume 9.5 fL (7.4-10.4); Platelet Count 316 10x3/uL (130-400); Red Blood Cell (RBC) Count 3.76 mill/uL (4.70-6.10); White Blood Cell (WBC) Count 8.2 10x3/uL (4.8-10.8)
[2023-09-24 15:12] LABS: Anion Gap 13 mmol/L (10-20); BUN (Urea Nitrogen) 21 mg/dL (8.4-25.7); Calc. Creatinine Clearance 72 mL/min (70-130); Calcium 8.8 mg/dL (7.8-10.44); Carbon Dioxide 24 mmol/L (23-31); Chloride 99 mmol/L (98-107); Estimated GFR 80; Glucose 167 mg/dL (80-115); Potassium 4.4 mmol/L (3.5-5.1); Sodium 132 mmol/L (136-145)
[2023-09-24] MEDS: Tamsulosin HCl 0.4 MG CAP PO SCH (20:36)
[2023-09-24] MEDS: Enoxaparin 30 MG (0.3 mL) SYRINGE SC SCH (20:37)
[2023-09-25] MEDS: Acetaminophen 500 MG TAB PO SCH ×3 (05:08→18:39)
[2023-09-25] MEDS: cloNIDine 0.1 MG TAB PO SCH ×2 (08:26→21:05)
[2023-09-25] MEDS: Aspirin 81 mg Enteric Coated Tablet PO SCH (08:26)
[2023-09-25] MEDS: hydrALAZINE 25 MG TAB PO SCH ×2 (08:26→21:05)
[2023-09-25] MEDS: traMADol HCl 50 MG TAB PO PRN ×2 (08:26→21:05)
[2023-09-25] MEDS: Insulin Glargine 30 UNITS/0.3 ML VIAL SC SCH (08:27)
[2023-09-25] MEDS: Metoprolol Tartrate 50 MG TAB PO SCH ×2 (08:27→21:05)
[2023-09-25] MEDS: Tamsulosin HCl 0.4 MG CAP PO SCH (21:04)
[2023-09-25] MEDS: Enoxaparin 30 MG (0.3 mL) SYRINGE SC SCH (21:05)
[2023-09-26] MEDS: Acetaminophen 500 MG TAB PO SCH ×4 (01:04→17:23)
[2023-09-26] MEDS: Aspirin 81 mg Enteric Coated Tablet PO SCH (08:22)
[2023-09-26] MEDS: hydrALAZINE 25 MG TAB PO SCH ×2 (08:22→20:30)
[2023-09-26] MEDS: Metoprolol Tartrate 50 MG TAB PO SCH ×2 (08:22→20:31)
[2023-09-26] MEDS: cloNIDine 0.1 MG TAB PO SCH ×2 (08:22→20:30)
[2023-09-26] MEDS: Insulin Glargine 30 UNITS/0.3 ML VIAL SC SCH (08:23)
[2023-09-26] MEDS: Insulin Regular 300 UNITS/3 ML VIAL SC PRN (13:29)
[2023-09-26] MEDS: Enoxaparin 30 MG (0.3 mL) SYRINGE SC SCH (20:31)
[2023-09-26] MEDS: Tamsulosin HCl 0.4 MG CAP PO SCH (20:31)
[2023-09-26] MEDS: traMADol HCl 50 MG TAB PO PRN (20:31)
[2023-09-27] MEDS: Acetaminophen 500 MG TAB PO SCH ×3 (00:51→11:47)
[2023-09-27] MEDS: traMADol HCl 50 MG TAB PO PRN (05:52)
[2023-09-27 08:13] VITALS: BP 152/88; TEMP 98.5
[2023-09-27] MEDS: cloNIDine 0.1 MG TAB PO SCH (08:59)
[2023-09-27] MEDS: Metoprolol Tartrate 50 MG TAB PO SCH (08:59)
[2023-09-27] MEDS: Aspirin 81 mg Enteric Coated Tablet PO SCH (09:00)
[2023-09-27] MEDS: hydrALAZINE 25 MG TAB PO SCH (09:00)
[2023-09-27] MEDS: Insulin Glargine 30 UNITS/0.3 ML VIAL SC SCH (09:00)
[2023-09-27] MEDS: Insulin Regular 300 UNITS/3 ML VIAL SC PRN (12:33)
== END 2023-09-27 17:20 | disposition home or self-care (01) | DRG 240 ==
LOC: SURG A 06:08 → T4-B 15:19
PROVIDERS: ADMIT Student in an Organized Health Care Education/Training Program; ATTEND Student in an Organized Health Care Education/Training Program
PROC: 0Y6J0Z1 Detachment at Left Lower Leg, High, Open Approach (ICD-10-PCS; principal; 2023-09-22)
PROC: 0Y6H0Z1 Detachment at Right Lower Leg, High, Open Approach (ICD-10-PCS; 2023-09-22)
DX: E11.52 Type 2 diabetes mellitus with diabetic peripheral angiopathy with gangrene (principal); D62 Acute posthemorrhagic anemia; I70.263 Atherosclerosis of native arteries of extremities with gangrene, bilateral legs; E78.5 Hyperlipidemia, unspecified; E11.22 Type 2 diabetes mellitus with diabetic chronic kidney disease; N18.9 Chronic kidney disease, unspecified; I12.9 Hypertensive chronic kidney disease with stage 1 through stage 4 chronic kidney disease, or unspecified chronic kidney disease; I25.10 Atherosclerotic heart disease of native coronary artery without angina pectoris; N40.0 Benign prostatic hyperplasia without lower urinary tract symptoms; Z98.890 Other specified postprocedural states; Z88.1 Allergy status to other antibiotic agents; Z88.5 Allergy status to narcotic agent; Z95.1 Presence of aortocoronary bypass graft
CPT/HCPCS: 36415; 36416; 80048; 85025; 85027; 85610; 85730; 86850; 86900; 86901; 88307; 90471; 90694; G0008; J0171; J1650; J1815; J2001; J2270; J2405; J2704; J3010; J3490

== ENCOUNTER 2023-10-18 15:06 | Inpatient (IN) | payer MEDICARE ==
[2023-10-18 16:28] LABS: #Monocytes 0.4 thou/uL (0.11-0.59); #Neutrophils 12.4 thou/uL (1.40-6.50); %Basophils 0.1 % (0.0-1.0); %Lymphocytes 5.1 % (21.0-51.0); %Neutrophils 91.4 % (42.0-75.0); Hematocrit 35.9 % (42.0-52.0); Hemoglobin 12.6 g/dL (14.0-18.0); Mean Corpuscular HGB CONC 35.1 g/dL (32.0-36.0); Mean Corpuscular Hemoglobin 29.3 pg (27.0-31.0); Mean Corpuscular Volume 83.5 fl (78.0-98.0); Mean Platelet Volume 9.4 fL (7.4-10.4); Platelet Count 337 10x3/uL (130-400); RBC Distribution Width 21.2 % (11.5-14.5); White Blood Cell (WBC) Count 13.5 10x3/uL (4.8-10.8)
[2023-10-18 16:42] LABS: Bacteria/HPF 4+ HPF (None Seen); Bilirubin Negative (Negative); Blood, Urine 2+ (Negative); CAUTI Indications for Culture Dysuria,urgency,freq; Clarity Extra Turbid (Clear); Glucose, Urine (Dipstick) Normal (Negative); Ketone, Urine Negative (Negative); Leukocyte 500 Leu/uL (Negative); Nitrite Negative (Negative); Protein, Urine (Dipstick) 200 mg/dL (Neg-Trace); Specific Gravity, Urine 1.013 (1.002-1.036); Urobilinogen Normal mg/dL (Less than 2); WBC/HPF Greater than 50 HPF (0-3)
[2023-10-18 16:44] LABS: Yeast-Budding Rare HPF (None Seen); Yeast-Hyphae Rare HPF (None Seen)
[2023-10-18 16:46] LABS: Urine Culture Reflex Yes Yes
[2023-10-18 17:00] LABS: ALT (SGPT) 17 U/L (8-55); AST (SGOT) 21 U/L (5-34); Albumin 3.5 g/dL (3.4-4.8); Alkaline Phosphatase 73 U/L (40-110); Anion Gap 15 mmol/L (10-20); BUN (Urea Nitrogen) 19 mg/dL (8.4-25.7); Bilirubin, Total 0.6 mg/dL (0.2-1.2); Calc. Creatinine Clearance 0 mL/min (70-130); Calcium 9.4 mg/dL (7.8-10.44); Carbon Dioxide 26 mmol/L (23-31); Chloride 93 mmol/L (98-107); Estimated GFR 83; Globulin 3.5 g/dL (2.4-3.5); Glucose 126 mg/dL (80-115); Potassium 4.3 mmol/L (3.5-5.1); Sodium 130 mmol/L (136-145)
[2023-10-18] MEDS ORDERED: HYDROcodone/Acetaminophen 5/325 mg Tablet PO PRN ×2 (19:00)
[2023-10-18] MEDS ORDERED: Acetaminophen 650 MG Suppository PR PRN (19:00)
[2023-10-18] MEDS ORDERED: Dextrose 50% Abboject 50 ML SYRINGE SLOW IVP PRN (19:13)
[2023-10-18] MEDS ORDERED: Glucagon 1 MG/ML KIT IM PRN (19:13)
[2023-10-18] MEDS ORDERED: Dextrose 5% in Water 1,000 ML IV PRN (19:13)
[2023-10-18] MEDS ORDERED: Vancomycin 1 GM/200 ML (FROZEN) BAG ONE (19:13)
[2023-10-18] MEDS ORDERED: Meropenem 1 GM in Sodium Chloride 0.9% 100 ML IVPB SCH (19:30)
[2023-10-18 20:20] VITALS: BMI 23.5
[2023-10-18] MEDS: Atorvastatin Calcium 40 MG TAB PO SCH (21:44)
[2023-10-18] MEDS: Tamsulosin HCl 0.4 MG CAP PO SCH (21:44)
[2023-10-18] MEDS: cloNIDine 0.2 MG TAB PO SCH (21:44)
[2023-10-18] MEDS: Senokot S 8.6-50 MG TAB PO SCH (21:44)
[2023-10-18] MEDS: Metoprolol Tartrate 50 MG TAB PO SCH (21:45)
[2023-10-18] MEDS: hydrALAZINE 25 MG TAB PO SCH (21:45)
[2023-10-19] MEDS: Meropenem 1 GM in Sodium Chloride 0.9% 100 ML IVPB SCH ×3 (05:41→20:43)
[2023-10-19 06:22] LABS: #Monocytes 0.7 thou/uL (0.11-0.59); #Neutrophils 8.2 thou/uL (1.40-6.50); %Basophils 0.1 % (0.0-1.0); %Eosinophils 0.2 % (0.0-10.0); %Lymphocytes 13.1 % (21.0-51.0); %Monocytes 6.7 % (0.0-10.0); %Neutrophils 79.6 % (42.0-75.0); Hematocrit 32.4 % (42.0-52.0); Hemoglobin 10.9 g/dL (14.0-18.0); Mean Corpuscular HGB CONC 33.6 g/dL (32.0-36.0); Mean Corpuscular Hemoglobin 28.1 pg (27.0-31.0); Mean Corpuscular Volume 83.5 fl (78.0-98.0); Mean Platelet Volume 9.8 fL (7.4-10.4); Platelet Count 276 10x3/uL (130-400); RBC Distribution Width 21.2 % (11.5-14.5); Red Blood Cell (RBC) Count 3.88 mill/uL (4.70-6.10); White Blood Cell (WBC) Count 10.3 10x3/uL (4.8-10.8)
[2023-10-19] MEDS: Bisacodyl 5 MG TAB PO PRN (06:40)
[2023-10-19 06:47] LABS: ALT (SGPT) 15 U/L (8-55); AST (SGOT) 18 U/L (5-34); Alkaline Phosphatase 60 U/L (40-110); Anion Gap 11 mmol/L (10-20); BUN (Urea Nitrogen) 19 mg/dL (8.4-25.7); Bilirubin, Total 0.5 mg/dL (0.2-1.2); Calc. Creatinine Clearance 59 mL/min (70-130); Calcium 8.6 mg/dL (7.8-10.44); Carbon Dioxide 25 mmol/L (23-31); Chloride 98 mmol/L (98-107); Estimated GFR 82; Globulin 2.9 g/dL (2.4-3.5); Glucose 135 mg/dL (80-115); Potassium 3.7 mmol/L (3.5-5.1); Protein, Total 5.9 g/dL (5.8-8.1); Sodium 130 mmol/L (136-145)
[2023-10-19] MEDS: Empagliflozin 10 MG TAB PO SCH (08:59)
[2023-10-19] MEDS: Senokot S 8.6-50 MG TAB PO SCH ×2 (08:59→20:38)
[2023-10-19] MEDS: hydrALAZINE 25 MG TAB PO SCH ×2 (08:59→20:38)
[2023-10-19] MEDS: cloNIDine 0.2 MG TAB PO SCH ×3 (08:59→20:38)
[2023-10-19] MEDS: Metoprolol Tartrate 50 MG TAB PO SCH ×2 (08:59→20:37)
[2023-10-19] MEDS: Aspirin 81 mg Enteric Coated Tablet PO SCH (08:59)
[2023-10-19] MEDS ORDERED: Insulin Glargine 30 UNITS/0.3 ML VIAL SC SCH (09:00)
[2023-10-19] MEDS: Enoxaparin 40 MG (0.4 mL) SYRINGE SC SCH (09:00)
[2023-10-19] MEDS ORDERED: Vancomycin 1 GM in Premix 1 BAG IVPB SCH (09:00)
[2023-10-19] MEDS: Ezetimibe 10 MG TAB PO SCH (09:00)
[2023-10-19 10:31] LABS: Hemoglobin A1c 6.7 % (4.0-6.0)
[2023-10-19] MEDS: Insulin Regular 300 UNITS/3 ML VIAL SC PRN ×2 (13:25→18:14)
[2023-10-19] MEDS: Tamsulosin HCl 0.4 MG CAP PO SCH (20:37)
[2023-10-19] MEDS: Atorvastatin Calcium 40 MG TAB PO SCH (20:37)
[2023-10-19] MEDS: Vancomycin (BATCH) 1.5 GM in Premix 1 BAG IVPB SCH (20:39)
[2023-10-19] MEDS: Acetaminophen 325 MG TAB PO PRN (22:43)
[2023-10-20] MEDS: Meropenem 1 GM in Sodium Chloride 0.9% 100 ML IVPB SCH ×3 (04:40→20:58)
[2023-10-20] MEDS: Ezetimibe 10 MG TAB PO SCH (08:35)
[2023-10-20] MEDS: Senokot S 8.6-50 MG TAB PO SCH ×2 (08:35→19:55)
[2023-10-20] MEDS: cloNIDine 0.2 MG TAB PO SCH ×3 (08:35→19:55)
[2023-10-20] MEDS: Metoprolol Tartrate 50 MG TAB PO SCH ×2 (08:36→19:56)
[2023-10-20] MEDS: hydrALAZINE 25 MG TAB PO SCH ×2 (08:36→19:54)
[2023-10-20] MEDS: Enoxaparin 40 MG (0.4 mL) SYRINGE SC SCH (08:37)
[2023-10-20] MEDS: Aspirin 81 mg Enteric Coated Tablet PO SCH (08:37)
[2023-10-20] MEDS: Empagliflozin 10 MG TAB PO SCH (08:37)
[2023-10-20] MEDS: Acetaminophen 325 MG TAB PO PRN (08:41)
[2023-10-20] MEDS: Bisacodyl 5 MG TAB PO PRN (09:59)
[2023-10-20] MEDS ORDERED: Polyethylene Glycol 3350 17 GM Packet PO SCH ×2 (10:45→21:00)
[2023-10-20] MEDS ORDERED: Mineral Oil ENEMA PR SCH (12:00)
[2023-10-20] MEDS: Polyethylene Glycol 3350 17 GM Packet PO SCH ×2 (16:23→19:55)
[2023-10-20] MEDS: Bisacodyl 10 MG SUPP PR SCH ×2 (16:23→23:51)
[2023-10-20] MEDS: Atorvastatin Calcium 40 MG TAB PO SCH (19:54)
[2023-10-20] MEDS: Tamsulosin HCl 0.4 MG CAP PO SCH (19:55)
[2023-10-20] MEDS: Vancomycin (BATCH) 1.5 GM in Premix 1 BAG IVPB SCH (20:58)
[2023-10-21] MEDS: Bisacodyl 10 MG SUPP PR SCH ×2 (05:48→15:06)
[2023-10-21] MEDS: Meropenem 1 GM in Sodium Chloride 0.9% 100 ML IVPB SCH ×2 (05:48→15:08)
[2023-10-21] MEDS: Ezetimibe 10 MG TAB PO SCH (09:30)
[2023-10-21] MEDS: Aspirin 81 mg Enteric Coated Tablet PO SCH (09:30)
[2023-10-21] MEDS: Polyethylene Glycol 3350 17 GM Packet PO SCH ×2 (09:32→15:09)
[2023-10-21] MEDS: Enoxaparin 40 MG (0.4 mL) SYRINGE SC SCH (09:32)
[2023-10-21] MEDS: hydrALAZINE 25 MG TAB PO SCH (09:32)
[2023-10-21] MEDS: Empagliflozin 10 MG TAB PO SCH (09:32)
[2023-10-21] MEDS: Senokot S 8.6-50 MG TAB PO SCH (09:32)
[2023-10-21] MEDS: Metoprolol Tartrate 50 MG TAB PO SCH (09:32)
[2023-10-21] MEDS: cloNIDine 0.2 MG TAB PO SCH ×3 (09:32→15:10)
[2023-10-21 09:53] LABS: #Monocytes 0.4 thou/uL (0.11-0.59); #Neutrophils 8.6 thou/uL (1.40-6.50); %Basophils 0.2 % (0.0-1.0); %Eosinophils 0.2 % (0.0-10.0); %Lymphocytes 11.5 % (21.0-51.0); %Monocytes 4.2 % (0.0-10.0); %Neutrophils 83.4 % (42.0-75.0); Hematocrit 30.2 % (42.0-52.0); Hemoglobin 10.3 g/dL (14.0-18.0); Mean Corpuscular HGB CONC 34.1 g/dL (32.0-36.0); Mean Corpuscular Hemoglobin 29.1 pg (27.0-31.0); Mean Corpuscular Volume 85.3 fl (78.0-98.0); Mean Platelet Volume 9.4 fL (7.4-10.4); Platelet Count 236 10x3/uL (130-400); RBC Distribution Width 20.6 % (11.5-14.5); Red Blood Cell (RBC) Count 3.54 mill/uL (4.70-6.10); White Blood Cell (WBC) Count 10.3 10x3/uL (4.8-10.8)
[2023-10-21 10:17] LABS: Anion Gap 15 mmol/L (10-20); BUN (Urea Nitrogen) 24 mg/dL (8.4-25.7); Calc. Creatinine Clearance 56 mL/min (70-130); Calcium 8.2 mg/dL (7.8-10.44); Carbon Dioxide 21 mmol/L (23-31); Chloride 99 mmol/L (98-107); Estimated GFR 76; Glucose 188 mg/dL (80-115); Sodium 131 mmol/L (136-145)
[2023-10-21 18:36] VITALS: BP 164/91; TEMP 98.4
[2023-10-21] MEDS ORDERED: FLU VACC QS2023(65UP)/MF59C/PF 60 MCG/0.5 ML SYRINGE IM ONE (23:15)
== END 2023-10-21 18:45 | disposition home health service (06) | DRG 690 ==
LOC: SUATTDRO 15:06 → ERS 15:06 → T4-B 19:00
PROVIDERS: ADMIT Family Medicine; ATTEND Hospitalist
DX: N39.0 Urinary tract infection, site not specified (principal); K56.49 Other impaction of intestine; Z88.8 Allergy status to other drugs, medicaments and biological substances; Z79.82 Long term (current) use of aspirin; Z79.899 Other long term (current) drug therapy; Z79.84 Long term (current) use of oral hypoglycemic drugs; Z79.4 Long term (current) use of insulin; E11.9 Type 2 diabetes mellitus without complications; E78.00 Pure hypercholesterolemia, unspecified; I10 Essential (primary) hypertension; Z95.1 Presence of aortocoronary bypass graft; I16.0 Hypertensive urgency; K59.00 Constipation, unspecified; I25.10 Atherosclerotic heart disease of native coronary artery without angina pectoris; Z89.512 Acquired absence of left leg below knee; Z89.511 Acquired absence of right leg below knee
CPT/HCPCS: 36415; 36416; 51702; 74177; 80048; 80053; 81001; 83036; 83605; 85025; 87040; 87086; 96374; J1650; J1815; J2185; J3370; J3370-JW; J3490; Q9967

== ENCOUNTER 2023-11-24 17:21 | Emergency (ER) | payer MEDICARE ==
[2023-11-24] MEDS ORDERED: Lidocaine 1% PF 5 ML VIAL ONE (19:23)
[2023-11-24] MEDS ORDERED: Bacitracin 1 PK ONE (19:48)
== END 2023-11-24 20:00 | disposition home or self-care (01) ==
LOC: ERS 17:21
DX: S02.2XXA Fracture of nasal bones, initial encounter for closed fracture (principal); S01.21XA Laceration without foreign body of nose, initial encounter; S63.501A Unspecified sprain of right wrist, initial encounter; S63.502A Unspecified sprain of left wrist, initial encounter; E11.9 Type 2 diabetes mellitus without complications; I10 Essential (primary) hypertension; Z79.82 Long term (current) use of aspirin; Z79.84 Long term (current) use of oral hypoglycemic drugs; Z79.4 Long term (current) use of insulin; W01.0XXA Fall on same level from slipping, tripping and stumbling without subsequent striking against object, initial encounter
CPT/HCPCS: 12011; 70450; 70486; 72125

== ENCOUNTER 2024-04-10 14:50 | Inpatient (IN) | payer MEDICARE ==
[2024-04-10 16:14] LABS: #Basophils Less than 0.03 10x3/uL (0.0-0.2); %Basophils 0.1 % (0.0-1.0); %Eosinophils 0.5 % (0.0-10.0); %Lymphocytes 20.9 % (21.0-51.0); %Monocytes 5.9 % (0.0-10.0); Hematocrit 31.2 % (42.0-52.0); Hemoglobin 10.2 g/dL (14.0-18.0); Mean Corpuscular HGB CONC 32.7 g/dL (32.0-36.0); Mean Corpuscular Hemoglobin 29.7 pg (27.0-31.0); Mean Platelet Volume 11.9 fL (7.4-10.4); Platelet Count 157 10x3/uL (130-400); Red Blood Cell (RBC) Count 3.43 mill/uL (4.70-6.10)
[2024-04-10 16:35] LABS: ALT (SGPT) 27 U/L (8-55); AST (SGOT) 30 U/L (5-34); Albumin 3.2 g/dL (3.4-4.8); Alkaline Phosphatase 81 U/L (40-110); Anion Gap 14 mmol/L (10-20); BUN (Urea Nitrogen) 64 mg/dL (8.4-25.7); Bilirubin, Total 0.5 mg/dL (0.2-1.2); Calc. Creatinine Clearance 0 mL/min (70-130); Calcium 8.6 mg/dL (7.8-10.44); Carbon Dioxide 21 mmol/L (23-31); Chloride 106 mmol/L (98-107); Estimated GFR 36; Globulin 3.1 g/dL (2.4-3.5); Glucose 270 mg/dL (83-110); Potassium 4.6 mmol/L (3.5-5.1); Protein, Total 6.3 g/dL (5.8-8.1); Sodium 136 mmol/L (136-145)
[2024-04-10 16:39] LABS: Troponin I 0.047 ng/mL (< 0.028)
[2024-04-10] MEDS ORDERED: Aspirin Chewable 81 MG TAB ONE (17:11)
[2024-04-10] MEDS ORDERED: Nitroglycerin 0.4 MG TAB 1 EACH ONE (17:12)
[2024-04-10] MEDS ORDERED: Furosemide 20 MG (2 mL) VIAL ONE (17:33)
[2024-04-10] MEDS ORDERED: Furosemide 40 MG (4 mL) VIAL ONE (17:33)
[2024-04-10] MEDS ORDERED: Acetaminophen 650 MG Suppository PR PRN (18:07)
[2024-04-10] MEDS ORDERED: Acetaminophen 325 MG TAB PO PRN (18:07)
[2024-04-10] MEDS ORDERED: Ondansetron PF 4 MG/2 ML Vial IVP PRN (18:07)
[2024-04-10] MEDS ORDERED: Ondansetron ODT 4 MG TAB PO PRN (18:07)
[2024-04-10] MEDS ORDERED: Dextrose 5% in Water 1,000 ML IV PRN (18:31)
[2024-04-10] MEDS ORDERED: Dextrose 50% Abboject 50 ML SYRINGE SLOW IVP PRN (18:31)
[2024-04-10] MEDS ORDERED: Insulin Lispro 100 UNIT/ML 10 ML VIAL SC PRN (18:31)
[2024-04-10] MEDS ORDERED: Glucagon 1 MG/ML KIT IM PRN (18:31)
[2024-04-10 19:10] LABS: Hemoglobin A1c 7.2 % (4.0-6.0)
[2024-04-10 19:12] LABS: Magnesium 2.6 mg/dL (1.6-2.6)
[2024-04-10 20:23] LABS: Troponin I 0.054 ng/mL (< 0.028)
[2024-04-10] MEDS ORDERED: Bisacodyl 10 MG SUPP PR PRN (22:06)
[2024-04-11] MEDS ORDERED: hydrALAZINE 25 MG TAB ONE (00:28)
[2024-04-11] MEDS ORDERED: Famotidine 20 MG TAB ONE (00:29)
[2024-04-11] MEDS ORDERED: Senokot S 8.6-50 MG TAB ONE (00:29)
[2024-04-11] MEDS ORDERED: Heparin 5,000 UNITS/ML VIAL ONE (00:29)
[2024-04-11] MEDS: Famotidine 20 MG TAB PO SCH (00:34)
[2024-04-11] MEDS: hydrALAZINE 25 MG TAB PO SCH ×3 (00:34→20:10)
[2024-04-11] MEDS: Senokot S 8.6-50 MG TAB PO SCH ×2 (00:35→09:36)
[2024-04-11] MEDS: Heparin 5,000 UNITS/ML VIAL SC SCH (00:44)
[2024-04-11 05:59] LABS: #Basophils 0.04 10x3/uL (0.0-0.2); %Basophils 0.5 % (0.0-1.0); %Eosinophils 0.8 % (0.0-10.0); %Lymphocytes 22.2 % (21.0-51.0); %Monocytes 7.2 % (0.0-10.0); %Neutrophils 69.1 % (42.0-75.0); Hematocrit 31.1 % (42.0-52.0); Hemoglobin 10.2 g/dL (14.0-18.0); Mean Corpuscular HGB CONC 32.8 g/dL (32.0-36.0); Mean Corpuscular Hemoglobin 29.7 pg (27.0-31.0); Mean Corpuscular Volume 90.4 fL (78.0-98.0); Mean Platelet Volume 11.7 fL (7.4-10.4); Platelet Count 157 10x3/uL (130-400); RBC Distribution Width 15.1 % (11.5-14.5); Red Blood Cell (RBC) Count 3.44 mill/uL (4.70-6.10)
[2024-04-11 06:30] LABS: Anion Gap 17 mmol/L (10-20); BUN (Urea Nitrogen) 57 mg/dL (8.4-25.7); Calc. Creatinine Clearance 45 mL/min (70-130); Calcium 8.8 mg/dL (7.8-10.44); Carbon Dioxide 21 mmol/L (23-31); Cardiac Risk 2.3 (Less than 4.5); Chloride 105 mmol/L (98-107); Cholesterol 102 mg/dl (< 200 Desired); Estimated GFR 41; Glucose 140 mg/dL (83-110); HDL Cholesterol 45 mg/dL (>60 Neg Risk); LDL Cholesterol, Calculated 42 mg/dL; Potassium 4.2 mmol/L (3.5-5.1); Sodium 139 mmol/L (136-145); Triglycerides 75 mg/dL (Less than 150)
[2024-04-11] MEDS ORDERED: Furosemide 40 MG (4 mL) VIAL ONE (06:30)
[2024-04-11] MEDS: Furosemide 40 MG (4 mL) VIAL SLOW IVP SCH (06:33)
[2024-04-11 09:18] VITALS: BMI 29.1
[2024-04-11] MEDS: Aspirin 81 mg Enteric Coated Tablet PO SCH (09:35)
[2024-04-11] MEDS: Metoprolol Tartrate 50 MG TAB PO SCH (09:35)
[2024-04-11] MEDS: glipiZIDE 5 MG TAB PO SCH (09:35)
[2024-04-11] MEDS: Ferrous Sulfate 325 MG TAB PO SCH (09:35)
[2024-04-11] MEDS: Polyethylene Glycol 3350 17 GM Packet PO SCH (09:36)
[2024-04-11] MEDS: Insulin Lispro 100 UNIT/ML 10 ML VIAL SC PRN (17:44)
[2024-04-11] MEDS: Atorvastatin Calcium 40 MG TAB PO SCH (20:10)
[2024-04-11] MEDS: Tamsulosin HCl 0.4 MG CAP PO SCH (20:10)
[2024-04-12 06:59] LABS: #Basophils 0.04 10x3/uL (0.0-0.2); %Basophils 0.6 % (0.0-1.0); %Eosinophils 1.7 % (0.0-10.0); %Lymphocytes 24.4 % (21.0-51.0); %Monocytes 8.6 % (0.0-10.0); %Neutrophils 64.3 % (42.0-75.0); Hematocrit 31.4 % (42.0-52.0); Hemoglobin 10.4 g/dL (14.0-18.0); Mean Corpuscular HGB CONC 33.1 g/dL (32.0-36.0); Mean Corpuscular Hemoglobin 30.3 pg (27.0-31.0); Mean Corpuscular Volume 91.5 fL (78.0-98.0); Platelet Count 146 10x3/uL (130-400); Red Blood Cell (RBC) Count 3.43 mill/uL (4.70-6.10)
[2024-04-12 09:24] LABS: ALT (SGPT) 23 U/L (8-55); AST (SGOT) 31 U/L (5-34); Albumin 3.2 g/dL (3.4-4.8); Alkaline Phosphatase 72 U/L (40-110); Anion Gap 15 mmol/L (10-20); BUN (Urea Nitrogen) 45 mg/dL (8.4-25.7); Bilirubin, Total 0.7 mg/dL (0.2-1.2); Calc. Creatinine Clearance 48 mL/min (70-130); Calcium 8.9 mg/dL (7.8-10.44); Carbon Dioxide 20 mmol/L (23-31); Chloride 109 mmol/L (98-107); Estimated GFR 46; Globulin 3.1 g/dL (2.4-3.5); Glucose 75 mg/dL (83-110); Potassium 3.8 mmol/L (3.5-5.1); Protein, Total 6.3 g/dL (5.8-8.1); Sodium 140 mmol/L (136-145)
[2024-04-12] MEDS ORDERED: glipiZIDE 5 MG TAB ONE (09:30)
[2024-04-12] MEDS ORDERED: hydrALAZINE 25 MG TAB ONE (09:30)
[2024-04-12] MEDS ORDERED: Ferrous Sulfate 325 MG TAB ONE (09:30)
[2024-04-12] MEDS ORDERED: Senokot S 8.6-50 MG TAB ONE (09:30)
[2024-04-12] MEDS ORDERED: Metoprolol Tartrate 50 MG TAB ONE (09:30)
[2024-04-12] MEDS ORDERED: Polyethylene Glycol 3350 17 GM Packet ONE (09:30)
[2024-04-12] MEDS ORDERED: Aspirin 81 mg Enteric Coated Tablet ONE (09:30)
[2024-04-12] MEDS ORDERED: Heparin 5,000 UNITS/ML VIAL ONE (09:30)
[2024-04-12] MEDS ORDERED: Famotidine 20 MG TAB ONE (09:30)
[2024-04-12] MEDS ORDERED: Spironolactone 25 MG TAB ONE (09:30)
[2024-04-12] MEDS ORDERED: Empagliflozin 10 MG TAB ONE (09:30)
[2024-04-12] MEDS ORDERED: Furosemide 40 MG (4 mL) VIAL ONE (13:00)
[2024-04-12] MEDS: Famotidine 20 MG TAB PO SCH (21:47)
[2024-04-12] MEDS: Empagliflozin 10 MG TAB PO SCH (21:47)
[2024-04-12] MEDS: Spironolactone 25 MG TAB PO SCH (21:47)
[2024-04-13 04:36] LABS: #Basophils 0.03 10x3/uL (0.0-0.2); %Basophils 0.4 % (0.0-1.0); %Eosinophils 1.1 % (0.0-10.0); %Lymphocytes 27.2 % (21.0-51.0); %Monocytes 8.4 % (0.0-10.0); %Neutrophils 62.6 % (42.0-75.0); Hematocrit 31.7 % (42.0-52.0); Hemoglobin 10.7 g/dL (14.0-18.0); Mean Corpuscular HGB CONC 33.8 g/dL (32.0-36.0); Mean Corpuscular Hemoglobin 30.3 pg (27.0-31.0); Mean Corpuscular Volume 89.8 fL (78.0-98.0); Mean Platelet Volume 10.9 fL (7.4-10.4); Platelet Count 156 10x3/uL (130-400); RBC Distribution Width 14.9 % (11.5-14.5); Red Blood Cell (RBC) Count 3.53 mill/uL (4.70-6.10)
[2024-04-13 04:53] LABS: ALT (SGPT) 22 U/L (8-55); AST (SGOT) 28 U/L (5-34); Alkaline Phosphatase 70 U/L (40-110); Anion Gap 12 mmol/L (10-20); BUN (Urea Nitrogen) 32 mg/dL (8.4-25.7); Bilirubin, Total 0.6 mg/dL (0.2-1.2); Calc. Creatinine Clearance 46 mL/min (70-130); Calcium 8.9 mg/dL (7.8-10.44); Carbon Dioxide 27 mmol/L (23-31); Chloride 105 mmol/L (98-107); Estimated GFR 45; Globulin 3.2 g/dL (2.4-3.5); Glucose 75 mg/dL (83-110); Potassium 3.7 mmol/L (3.5-5.1); Protein, Total 6.2 g/dL (5.8-8.1); Sodium 140 mmol/L (136-145)
[2024-04-13] MEDS: NIFEdipine 10 MG CAP PO SCH (08:49)
[2024-04-13] MEDS ORDERED: Metoprolol Tartrate 50 MG TAB PO SCH (12:13)
[2024-04-13] MEDS: hydrALAZINE 25 MG TAB PO SCH (14:24)
[2024-04-13] MEDS: Metoprolol Tartrate 50 MG TAB PO SCH (20:51)
[2024-04-14 05:18] LABS: #Basophils 0.04 10x3/uL (0.0-0.2); %Basophils 0.5 % (0.0-1.0); %Eosinophils 0.7 % (0.0-10.0); %Lymphocytes 23.1 % (21.0-51.0); %Neutrophils 68.3 % (42.0-75.0); Hematocrit 33.1 % (42.0-52.0); Hemoglobin 10.9 g/dL (14.0-18.0); Mean Corpuscular HGB CONC 32.9 g/dL (32.0-36.0); Mean Corpuscular Hemoglobin 29.5 pg (27.0-31.0); Mean Corpuscular Volume 89.7 fL (78.0-98.0); Mean Platelet Volume 10.7 fL (7.4-10.4); Platelet Count 165 10x3/uL (130-400); RBC Distribution Width 14.8 % (11.5-14.5); Red Blood Cell (RBC) Count 3.69 mill/uL (4.70-6.10)
[2024-04-14 07:10] VITALS: BP 168/75; TEMP 98
[2024-04-14 11:24] LABS: Anion Gap 14 mmol/L (10-20); BUN (Urea Nitrogen) 29 mg/dL (8.4-25.7); Calc. Creatinine Clearance 46 mL/min (70-130); Carbon Dioxide 29 mmol/L (23-31); Chloride 102 mmol/L (98-107); Estimated GFR 45; Glucose 237 mg/dL (83-110); Potassium 3.6 mmol/L (3.5-5.1); Sodium 141 mmol/L (136-145)
== END 2024-04-14 13:02 | disposition home or self-care (01) | DRG 291 ==
LOC: ERS 14:50 → ERHOLD 20:41 → 2NO 20:45
PROVIDERS: ADMIT Student in an Organized Health Care Education/Training Program; ATTEND Family Medicine
DX: I13.0 Hypertensive heart and chronic kidney disease with heart failure and stage 1 through stage 4 chronic kidney disease, or unspecified chronic kidney disease (principal); I50.31 Acute diastolic (congestive) heart failure; I24.89 Other forms of acute ischemic heart disease; E11.22 Type 2 diabetes mellitus with diabetic chronic kidney disease; I25.10 Atherosclerotic heart disease of native coronary artery without angina pectoris; E78.5 Hyperlipidemia, unspecified; N18.32 Chronic kidney disease, stage 3b; E11.51 Type 2 diabetes mellitus with diabetic peripheral angiopathy without gangrene; N40.0 Benign prostatic hyperplasia without lower urinary tract symptoms; I5A Non-ischemic myocardial injury (non-traumatic); Z95.1 Presence of aortocoronary bypass graft; Z88.1 Allergy status to other antibiotic agents; Z79.899 Other long term (current) drug therapy; Z79.84 Long term (current) use of oral hypoglycemic drugs; Z79.82 Long term (current) use of aspirin; Z89.612 Acquired absence of left leg above knee; Z89.611 Acquired absence of right leg above knee; Z86.73 Personal history of transient ischemic attack (TIA), and cerebral infarction without residual deficits
CPT/HCPCS: 36415; 36416; 71045; 80048; 80053; 80061; 83036; 83735; 83880; 84443; 84484; 85025; 93306; 96374; J1644; J1815; J1940